=== PATIENT | male | born 1945 | race Caucasian/White ===

== ENCOUNTER 2019-02-17 09:31 | Day surgery (SDC) | payer MEDICARE ==
[~2019-02-17 09:31] MED LIST: ALPRAZolam 0.25 MG TAB PO PRN; ALPRAZolam 0.5 MG TAB PO PRN; ASPIRIN 325 MG TAB PO ONE; ATORVASTATIN 80 MG TAB PO ONE; NITROGLYCERIN SL TABS 0.4 MG TAB SUBLINGUAL PRN; SODIUM CHLORIDE 0.9% 1,000 ML in EMPTY BAG 1 BAG IV ONE
[2019-02-17] MEDS ORDERED: HEPARIN SODIUM 1,000 UN/ML (10ML VL) ONE (10:25)
[2019-02-17] MEDS ORDERED: VERAPAMIL 2.5 MG/ML 2 ML AMP ONE (10:25)
[2019-02-17] MEDS ORDERED: LIDOCAINE 1% INJ 10MG/ML (20 ML MDV) ONE (10:25)
[2019-02-17] MEDS ORDERED: MIDAZOLAM 2 MG/2 ML VIAL IVP ONE (10:39)
[2019-02-17] MEDS ORDERED: LIDOCAINE 1% INJ 10MG/ML (20 ML MDV) SQ ONE (10:42)
[2019-02-17] MEDS: VERAPAMIL SYRINGE (5 MG/10 ML) INTRAARTER ONE ×2 (10:45→11:46)
[2019-02-17] MEDS: HEPARIN SODIUM 1,000 UN/ML (10ML VL) IV ONE ×3 (10:46→11:21)
[2019-02-17] MEDS: NITROGLYCERIN 1000MCG/10ML SYRINGE INTRACORON ONE ×4 (11:08→11:41)
[2019-02-17] MEDS ORDERED: IOPAMIDOL-370 100ML BTL INJ ONE ×2 (11:25→11:49)
[2019-02-17] MEDS ORDERED: TICAGRELOR 90 MG TAB ONE (11:48)
[2019-02-17] MEDS ORDERED: TICAGRELOR 90 MG TAB PO ONE (11:49)
[2019-02-17] MEDS ORDERED: MAG HYDROX/AL HYDROX/SIMETH 30 ML CUP PO PRN (11:55)
[2019-02-17] MEDS ORDERED: ZOLPIDEM 5 MG TAB PO PRN (11:55)
[2019-02-17] MEDS ORDERED: NITROGLYCERIN SL TABS 0.4 MG TAB SUBLINGUAL PRN (11:55)
[2019-02-17] MEDS ORDERED: ATROPINE SULFATE 0.1 MG/ML 10ML SYRINGE IV PRN (11:55)
[2019-02-17] MEDS ORDERED: RX INFO: IV CONTRAST WAS GIVEN 1 EACH MISC MISCELLANE PRN (11:55)
[2019-02-17] MEDS ORDERED: PANTOPRAZOLE 40 MG TABLET PO PRN (11:59)
--- NOTE | 2019-02-17 13:02 | CC ---
CARDIAC CATHETERIZATION REPORT DATE OF SERVICE: 02/17/2019 PROCEDURE: 1. Left heart catheterization and coronary angiography. 2. Fractional flow reserve assessment of proximal LAD lesion. 3. PTCA and stenting of proximal LAD of an in-stent restenosis with a 3.25 caliber 15 mm long drug-eluting Xience stent. PERFORMED BY: Dr. Jalen Hager. Moderate conscious sedation time was 69 minutes. Patient was administered Versed. His oxygen saturation, hemodynamics and EKG were monitored closely. CLINICAL INFORMATION: Mr. 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 Last effort was in 2008 when I was unable to open up the totally occluded RCA and he already had infarct with inferobasal hypokinesia, but later the vessel recanalized and a cath in 2010 revealed a patent artery with stenosis. He also had a previous proximal LAD stenting in 2002 with a bare metal stent. Circumflex was never stented. Because of increasing symptoms of angina and abnormal stress test with a more prominent area of reversibility in the inferoapical wall more towards the apex, I recommended coronary angiography. After due discussion of risks, benefits, and options, patient was brought in for the procedure electively. PROCEDURE NOTE: Under local anesthesia and strict aseptic precautions, a 6-Persian introducer was placed in the right radial artery. Using a JL3.5 and JR4 catheters, I performed coronary angiography and the same right catheter was used to check LV pressures. LV gram was not performed. I noted that the patient had a moderate to significant lesion within the stented segment of proximal LAD. RCA remained recanalized vessel. I recommended an FFR of this vessel to be performed. Following the FFR, which was significant, I performed PCI of the proximal LAD with a drug-eluting stent of 3.25 caliber and 15 mm length. Patient tolerated procedure well. Eventually, the sheath was taken out and saturation of the fingers of the right hand was 98%. He was sent to the room in stable condition. CARDIAC CATHETERIZATION FINDINGS: The left ventricular end-diastolic pressure was 12 mmHg without any significant gradient across the aortic valve. CORONARY ANGIOGRAPHY FINDINGS: RIGHT CORONARY ARTERY: This is a recanalized vessel. Patient had a previous right coronary occlusion with ND. This vessel is patent, recanalized but the mid segment and proximal segment is heavily calcified. There appears to be a stenosis of 70% to 80% and flow is good DEMETRA-3 flow and this was similar to what was seen in 2011. LEFT MAIN CORONARY ARTERY: Short patent disease-free vessel that bifurcates into LAD and circumflex. LEFT ANTERIOR DESCENDING CORONARY ARTERY: Proximal LAD that was stented in the distal aspect of the septal branch has what appears to be a 60% to 70% narrowing seems significant in some views. Rest of the LAD is free of significant disease, gives off a diagonal branch. The origin of the diagonal branch also has some disease, but the flow is brisk. The entire LAD after diagonal branch is free of significant disease, runs all the way to the apex and curves over to supply the inferoapical portion of left ventricle. No other significant disease is noted. Proximal LAD within the stented segment has what seems to be a 60% to 70% restenotic lesion. LEFT POSTERIOR CIRCUMFLEX CORONARY ARTERY: Nondominant vessel of good caliber and good distribution gives off a single large obtuse marginal that runs laterally and other secondary branch superiorly and also AV groove branch. No significant disease is noted in the circumflex system. FINAL IMPRESSION: This patient has normal filling pressures. No gradient across aortic valve. Left end- diastolic pressure was about 12 mmHg. He has a right dominant system. Recanalized RCA with diffuse proximal disease of about 70% to 80% unchanged. New lesion in the proximal LAD about 60% to 70% is at moderate if not significant. Circumflex has no significant disease and nondominant. RECOMMENDATION: I recommended FFR and if significant proceeded to perform PCI of the proximal LAD within the restenotic segment. PCI PROCEDURE DETAILS: I used a JL3.5, six-Persian guide catheter and a Verrata wire. With this wire, I performed iFR. After zeroing and normalizing in the aorta, the wire was advanced and positioned in the mid to distal LAD. The iFR was 0.56. I then proceeded to perform PCI. Using the same wire, I pre-dilated the lesion with a 15 mm long 2.5 caliber NC Trek balloon with 12 atmospheres and then deployed the same 15 mm long 3.25 caliber Xience stent. The stent, distal aspect, was placed just before the diagonal branch. I evaluated the location very carefully in both IRANIAN and DUDLEY projections. Care was taken to make sure that the stent was appropriately positioned. Multiple views were obtained. The stent was deployed at about 13 atmospheres. Excellent angiographic result achieved. Patient had very minimal discomfort and also very subtle ST-segment changes. Distal to the stent was a diagonal branch and the flow was preserved in the diagonal branch. Previously, there was some narrowing in the diagonal that was unchanged. I then took the wire out, re-normalized it and again performed an iFR and this time, it was 1.00. Excellent angiographic result was achieved without complication. The patient received a total of 9000 units of heparin and his ACT was 291. The sheath was taken out and TR band applied as per protocol. The saturation of the fingers of the right hand of 98%. Results were discussed with the patient as well as his and he will be discharged tomorrow if he remains stable. MMODL / IJN: [id number] /
[2019-02-17] MEDS: SODIUM CHLORIDE 0.9% 1,000 ML IV SCH (13:07)
[2019-02-17 13:39] LABS: Glucose,Whole Blood 92 mg/dL (75-99)
[2019-02-17 14:22] VITALS: BMI 38.0
[2019-02-17 16:28] LABS: Glucose,Whole Blood 91 mg/dL (75-99)
[2019-02-17] MEDS ORDERED: ATORVASTATIN 80 MG TAB PO SCH (21:00)
[2019-02-17] MEDS ORDERED: MAGNESIUM OXIDE 400 MG TAB PO SCH (21:00)
[2019-02-17] MEDS: LISINOPRIL 10 MG TAB PO SCH (21:24)
--- NOTE | 2019-02-18 07:50 | DS ---
DISCHARGE SUMMARY DATE OF ADMISSION: 02/17/2019 DATE OF DISCHARGE: 02/18/2019 DIAGNOSIS: Unstable angina, previous history of myocardial infarction. PROCEDURES PERFORMED: Coronary angiography, fractional flow reserve assessment of LAD and PTCA and stenting of proximal LAD with drug-eluting stent within the previously placed stent from 2002. Mr. Salazar was brought in because of an abnormal stress test and symptoms of exertional shortness of breath and chest tightness. Coronary angiography from right radial approach revealed that his RCA was a recanalized vessel, unchanged from before with heavy calcification. Circumflex was free of significant disease. LAD was stented proximally in 2002 with a bare metal stent. This area had about a 60% to 70% narrowing. The severity was assessed physiologically by FFR measurement. The iFR was 0.56. The patient underwent stenting of this vessel with a 15 mm 3.25 caliber Xience stent. Excellent angiographic result was achieved. The iFR was back to 1.0. Postprocedure course was uneventful. This morning EKG is unremarkable. Blood pressure is 130/70, pulse rate is 64 per minute. No JVD or carotid bruit. S1-S2 heard normally. Lungs are clear. Abdomen and lower extremity exam unchanged. There is a short systolic murmur audible, unchanged from before. The patient's cardiac cath site in the right radial is clean and dry with a good pulse. His EKG is unremarkable. Laboratory data are still pending. The patient's labs will be reviewed. He is ambulating the hallways without symptoms. He will be discharged today. Discharge instructions regarding activity, diet and medications were given. Medications were given. He will be on aspirin, Brilinta, beta blockers and statins. I will see him in the office on the of this month. MMODL / IJN: [id number] /
[2019-02-18 07:54] LABS: Basophils % (A) 1 %; Eosinophils # (A) 0.2 k/uL (0-0.7); Eosinophils % (A) 3 %; HCT 40.7 % (39.0-53.0); HGB 13.7 gm/dL (13.0-17.5); Lymphocytes # (A) 1.7 k/uL (1.0-4.8); Lymphocytes % (A) 25 %; MCH 32.1 pg (25.0-35.0); MCHC 33.8 g/dL (31.0-37.0); Mean Platelet Volume 6.5; Monocytes # (A) 0.5 k/uL (0-1.0); Monocytes % (A) 8 %; Neutrophils % (A) 61 %; Platelet Count 193 k/uL (150-450); RBC 4.28 m/uL (4.30-5.90); RDW 13.1 % (11.5-15.5); WBC 6.6 k/uL (3.8-10.6)
[2019-02-18 08:05] LABS: African American GFR (CKD) >90 (>60 ml/min/1.73 sqM); Anion Gap 4 mmol/L; Blood Urea Nitrogen 14 mg/dL (9-20); Calcium 8.9 mg/dL (8.4-10.2); Carbon Dioxide 29 mmol/L (22-30); Chloride 105 mmol/L (98-107); Glucose 106 mg/dL (74-99); Potassium 4.1 mmol/L (3.5-5.1); Sodium 138 mmol/L (137-145)
[2019-02-18 08:07] VITALS: BP 142/84; PULSE 69; RESP 18; TEMP 97.4
[2019-02-18] MEDS: SODIUM CHLORIDE 0.9% 1,000 ML IV SCH (08:07)
[2019-02-18] MEDS: LISINOPRIL 10 MG TAB PO SCH (08:18)
[2019-02-18] MEDS ORDERED: ASPIRIN 81 MG PO SCH (09:00)
[2019-02-18] MEDS ORDERED: NON FORMULARY DRUG (Aspirin [Adult Low Dose Aspirin Ec] 81 MG) PO SCH (09:00)
[2019-02-18] MEDS ORDERED: MULTIVITAMINS, THERA 1 EACH TAB PO SCH (09:00)
[2019-02-18] MEDS ORDERED: METOPROLOL TARTRATE 25 MG TAB PO SCH (09:00)
[2019-02-18] MEDS ORDERED: TICAGRELOR 90 MG TAB PO SCH (09:00)
[2019-02-18] MEDS ORDERED: ISOSORBIDE MONONITRATE ER 30 MG TAB.ER.24H PO SCH (09:00)
== END 2019-02-18 10:40 | disposition home or self-care (01) ==
LOC: CATHCVL 09:31 → 3SCARD 11:46 → CATHCVL 02-18 10:40
PROVIDERS: ATTEND Internal Medicine Interventional Cardiology
DX: I25.110 Atherosclerotic heart disease of native coronary artery with unstable angina pectoris (principal); I25.84 Coronary atherosclerosis due to calcified coronary lesion; I10 Essential (primary) hypertension; Z72.0 Tobacco use; Z95.5 Presence of coronary angioplasty implant and graft; E78.5 Hyperlipidemia, unspecified; E78.00 Pure hypercholesterolemia, unspecified; I25.2 Old myocardial infarction; Z86.718 Personal history of other venous thrombosis and embolism; Z79.82 Long term (current) use of aspirin; Z79.899 Other long term (current) drug therapy
CPT/HCPCS: 93571; 93458; 85347; 80048; 85025; C9600; C1887; C1725; C1874; C1769; C1894; J2250; J2001; J1644; Q9967

== ENCOUNTER 2020-01-14 09:35 | Day surgery (SDC) | payer MEDICARE ==
[2020-01-08 13:37] VITALS: BMI 38.7
[~2020-01-14 09:35] MED LIST changes: -ASPIRIN 325 MG TAB PO ONE; +ASPIRIN 325 MG TAB PO STA; -ATORVASTATIN 80 MG TAB PO ONE; +ATORVASTATIN 80 MG TAB PO STA
[2020-01-14] MEDS ORDERED: ASPIRIN 81 MG ONE (09:52)
[2020-01-14] MEDS ORDERED: SODIUM CHLORIDE 0.9% 1,000 ML IV ONE (09:55)
[2020-01-14 10:08] VITALS: RESP 16; TEMP 97.6
[2020-01-14] MEDS ORDERED: LIDOCAINE 1% INJ 10MG/ML (20 ML MDV) ONE (10:37)
[2020-01-14] MEDS ORDERED: VERAPAMIL 2.5 MG/ML 2 ML AMP ONE (10:37)
[2020-01-14] MEDS ORDERED: HEPARIN SODIUM 1,000 UN/ML (10ML VL) ONE (10:37)
[2020-01-14] MEDS: MIDAZOLAM 2 MG/2 ML VIAL IVP ONE ×2 (11:11→11:15)
[2020-01-14] MEDS ORDERED: LIDOCAINE 1% INJ 10MG/ML (20 ML MDV) SQ ONE (11:16)
[2020-01-14] MEDS ORDERED: VERAPAMIL SYRINGE (5 MG/10 ML) INTRAARTER ONE (11:19)
[2020-01-14] MEDS ORDERED: HEPARIN SODIUM 1,000 UN/ML (10ML VL) IV ONE (11:23)
[2020-01-14] MEDS ORDERED: NITROGLYCERIN 1000MCG/10ML SYRINGE INTRACORON ONE (11:26)
[2020-01-14] MEDS ORDERED: IOPAMIDOL-370 100ML BTL INJ ONE (11:31)
[2020-01-14] MEDS ORDERED: SODIUM CHLORIDE 0.9% 1,000 ML IV SCH (12:00)
--- NOTE | 2020-01-14 12:19 | CC ---
CARDIAC CATHETERIZATION REPORT DATE OF SERVICE: 01/14/2020. PROCEDURE: Coronary angiography. PERFORMED BY: Dr. Jalen Hager. Moderate conscious sedation time was 15 minutes. Patient was administered Versed. Oxygenation and EKG were monitored closely. CLINICAL INFORMATION: Mr. Alo Salazar is a 74-year-old gentleman with a known history of multivessel PCI. He is known to have a previous inferior AR with a total occlusion of RCA recanalized vessel. The LAD. He had a previous stent in 2002. Because of significant abnormal stress test, I performed cardiac cath in February of 2019, which revealed a proximal LAD restenotic lesion and this was addressed with a new 3.25 caliber drug-eluting stent and IFR was negative after the procedure without evidence of ischemia after the procedure and was significantly abnormal before the procedure. Because of symptoms of angina, recurrent, I advised him to come in for a cardiac catheterization after due discussion regarding risks, benefits, and options. He does have a calcified RCA with 70% stenosis, but this was thought to be a recanalized vessel and area of ischemia was not significant on previous stress test. I thought the inferoapical ischemia was related to the distal LAD which was supplying the inferoapical territory. After due discussion regarding risks, benefits, and options, he was brought in for the procedure. PROCEDURE NOTE: Under local anesthesia and strict aseptic precautions, a 6-Kinyarwanda introducer was placed in the right radial artery. Using a JL3.5 and JR4 catheter, I performed selective coronary angiography in the say and following the procedure. The sheath was taken out and TR band applied as per protocol. Saturation the fingers of the right hand was 95%. The patient tolerated procedure well without complications. CORONARY ANGIOGRAPHY FINDINGS: RIGHT CORONARY ARTERY: this is a recanalized vessel. Proximally, there is some moderate calcification. Mid segment is also heavily calcified. There is eccentric 70% lesion with what seems to be a recanalized vessel type appearance, but there was a lot of calcification and there are at least 2 areas of 70% stenosis and tired vessel has a stenosis in the proximal 1/3. Caliber improves distally and bifurcates into PDA and PLV distally. Flow is sluggish in the distal branches. LEFT MAIN CORONARY ARTERY: Short patent free disease-free vessel that bifurcates into LAD and circumflex. LEFT ANTERIOR DESCENDING CORONARY ARTERY: This is a good caliber vessel. The proximal LAD that was stented is widely patent with very good flow. This was the in-stent restenosis. No appears to be widely patent with good flow. There is a diagonal branch that is somewhat jailed, but there is a DEMETRA-3 flow in that. There is a septal branch which is free of significant disease. Another 40% lesion beyond the stented segment and the vessel runs all the way to the apex supplying the inferoapical portion. The restenotic. The recently stented lesion in February of 2019 is now widely patent with remarkably good flow. Left posterior circumflex coronary artery nondominant vessel gives off a good-sized obtuse marginal 2 branches. The 2nd branch is larger than a groove branch. All of these have minor irregularities. No significant disease. Left ventriculogram was not performed. LV pressures were not checked. This patient has no evidence of restenosis at the site of previous stenting in the proximal LAD which was the restenotic lesion with a drug-eluting stent in February 2019. The RCA is a recanalized vessel with a mid lesion of about 70% in heavily calcified area. The findings are unchanged compared to the previous angiogram in 2010 as well. The circumflex is free of significant disease. LV pressures were not obtained. RECOMMENDATIONS: I am recommending medical therapy for now but given the patient's symptoms I will perform a repeat stress test to assess significance of the RCA lesion and if necessary, I will consider intervention of the RCA with orbital atherectomy as elective intervention down the road. For now we will proceed with medical therapy. LAD is widely patent. This was explained to the patient and and I will see him in the office in one week and plan for a stress test in the next few weeks. Discussed my thoughts in detail with the patient and . I expect he will be discharged later on today. MMODL / IJN: [id number] /
[2020-01-14 16:48] VITALS: BP 139/79; PULSE 50
== END 2020-01-14 17:37 | disposition home or self-care (01) ==
LOC: CATHCVL 09:35
PROVIDERS: ATTEND Internal Medicine Interventional Cardiology
DX: T82.855A Stenosis of coronary artery stent, initial encounter (principal); I25.10 Atherosclerotic heart disease of native coronary artery without angina pectoris; I25.2 Old myocardial infarction; I25.82 Chronic total occlusion of coronary artery; I10 Essential (primary) hypertension; E78.5 Hyperlipidemia, unspecified; E66.9 Obesity, unspecified; E78.00 Pure hypercholesterolemia, unspecified; G47.30 Sleep apnea, unspecified; Z79.82 Long term (current) use of aspirin; Z79.02 Long term (current) use of antithrombotics/antiplatelets; Z79.899 Other long term (current) drug therapy; Z68.38 Body mass index [BMI] 38.0-38.9, adult; Z95.5 Presence of coronary angioplasty implant and graft
CPT/HCPCS: 93454; C1769; C1894; J2250; J2001; J1644; Q9967

== ENCOUNTER → 2020-05-25 | Outpatient (CLI) | payer MEDICARE ==
[2020-05-25 10:39] LABS: HCT 45.7 % (39.0-53.0); HGB 14.8 gm/dL (13.0-17.5); MCHC 32.3 g/dL (31.0-37.0); MCV 96.2 fL (80.0-100.0); Mean Platelet Volume 8.1; Platelet Count 192 k/uL (150-450); RBC 4.76 m/uL (4.30-5.90); RDW 13.7 % (11.5-15.5); WBC 8.7 k/uL (3.8-10.6)
[2020-05-25 10:48] LABS: African American GFR (CKD) >90 (>60 ml/min/1.73 sqM); Anion Gap 5 mmol/L; Blood Urea Nitrogen 22 mg/dL (9-20); Carbon Dioxide 31 mmol/L (22-30); Chloride 105 mmol/L (98-107); Non-African American GFR(CKD) 81 (>60 ml/min/1.73 sqM); Potassium 5.2 mmol/L (3.5-5.1); Sodium 141 mmol/L (137-145)
== END | disposition home or self-care (01) ==
LOC: LABPAT 10:01
PROVIDERS: ATTEND Internal Medicine Interventional Cardiology
DX: Z01.818 Encounter for other preprocedural examination (principal); I25.118 Atherosclerotic heart disease of native coronary artery with other forms of angina pectoris
CPT/HCPCS: 36415; 80051; 82565; 84520; 85027

== ENCOUNTER 2020-06-01 06:32 | Day surgery (SDC) | payer MEDICARE ==
[2020-05-27 13:23] VITALS: BMI 36.7
[~2020-06-01 06:32] MED LIST changes: +HEPARIN SODIUM,PORCINE 10,000 UNIT in SODIUM CHLORIDE 0.9% 1,000 ML IRRIGATION PRN; +HEPARIN SODIUM,PORCINE 2,500 UNIT in SODIUM CHLORIDE 0.9% 250 ML IRRIGATION PRN
[2020-06-01] MEDS ORDERED: ASPIRIN 81 MG ONE (06:49)
[2020-06-01 06:55] VITALS: TEMP 97.2
[2020-06-01] MEDS ORDERED: LIDOCAINE 1% INJ 10MG/ML (20 ML MDV) ONE (07:15)
[2020-06-01] MEDS ORDERED: LIDOCAINE 1% INJ 10MG/ML (20 ML MDV) SQ ONE (08:01)
[2020-06-01] MEDS ORDERED: MIDAZOLAM 2 MG/2 ML VIAL IV ONE (08:03)
[2020-06-01] MEDS ORDERED: HEPARIN SODIUM 1,000 UN/ML (10ML VL) ONE (08:14)
[2020-06-01] MEDS ORDERED: CLOPIDOGREL 75 MG TAB ONE (08:41)
[2020-06-01] MEDS ORDERED: CLOPIDOGREL 75 MG TAB PO ONE (08:49)
[2020-06-01] MEDS ORDERED: IOPAMIDOL-370 100ML BTL INJ ONE ×2 (08:54→08:56)
[2020-06-01] MEDS ORDERED: NITROGLYCERIN 1000MCG/10ML SYRINGE INTRACORON ONE (08:57)
[2020-06-01] MEDS ORDERED: SODIUM CHLORIDE 0.9% 1,000 ML IV SCH (09:15)
[2020-06-01] MEDS ORDERED: amLODIPine 5 MG TAB ONE (10:35)
--- NOTE | 2020-06-01 10:51 | PTCA ---
PERCUTANEOUSTRANS CORORONARY ANGIOGRAPHY DATE OF SERVICE: 06/01/2020 PROCEDURE: 1. Coronary angiography of the left system to ensure patency of LAD that was stented in February 2019. 2. Orbital atherectomy with a CSI device of proximal and mid right coronary artery. 3. PTCA and stenting of proximal and mid RCA with 2 drug-eluting stents. PERFORMED BY: Dr. Jalen Hager. Moderate conscious sedation time was 71 minutes. Patient was administered Versed. Oxygen saturation, hemodynamics and EKG were monitored closely. CLINICAL INFORMATION: Mr. Alo Salazar is a 74-year-old gentleman with a history of prior inferior LA sometime in 2008 or so when he had RCA occlusion which was stented with a 2.75, 15 mm stent. However, he developed a total occlusion of this vessel which later on reopened. He then had LAD stenting performed by me in February 2019 with a good result. Because of recurrent angina, I performed a stress test which revealed inferior wall ischemia with an area of fixed defect as well. I advised a RCA PCI because this appeared to be a recanalized vessel but was heavily calcified before the stented segment in the midportion. He was advised a CSI atherectomy and stenting and brought in for the procedure electively after due discussion regarding risks, benefits, and options. The patient was already on aspirin and Plavix. PROCEDURE NOTE: Under local anesthesia and strict aseptic precautions, a 6-Bahraini introducer was placed in the right femoral artery and another 6-Bahraini introducer in the right femoral vein in case we needed a pacemaker. I used a standard left Anthony diagnostic catheter and performed selective coronary angiography of the left system and noted that the LAD was widely patent. I then turned my attention to the RCA intervention. Using an AL1 guide catheter of 6-Bahraini caliber, I cannulated the right coronary artery and a run-through wire along with a Teleport catheter, combination was used to cross the lesion, wire was kept distally. The wire was then taken out and through the same Teleport wire, an CSI atherectomy wire was advanced. I then performed orbital atherectomy with 3 passes of the proximal and mid RCA just before the stented segment. Then I used a 2.5 x 20 mm NC Trek balloon and postdilated this area throughout its length. I then deployed a 28 mm long 3.0 caliber Xience stent inside the previous stent and also proximal to it. Telescoping into this stent, I deployed another 15 mm long 3.0 caliber Xience stent all the way to the proximal RCA. The patient did not have EKG changes. He had mild chest discomfort. Excellent angiographic result was achieved. Then the entire length of the stented segment was post dilated with a 20 mm 3.5 NC Trek balloon at 12 atmospheres. Excellent angiographic result was achieved without complication. The sheath was taken out and Angio-Seal device used to secure hemostasis. Patient received intravenous heparin of nearly 9,500 units and his ACT was 250. Excellent angiographic result was achieved. He received additional 300 mg of Plavix orally. The patient was already on Plavix and aspirin. The patient therefore received intravenous heparin with ACT of 250 and also 300 mg of Plavix. He was sent to the room in a stable condition. Results were discussed with the patient as well as his . I expect he will be discharged at 5:30 p.m. today if he remains stable and I will see him in the office in 48 hours. MMODL / IJN: [id number] /
[2020-06-01 12:51] VITALS: BP 167/77; PULSE 73; RESP 18
== END 2020-06-01 17:27 | disposition home or self-care (01) ==
LOC: CATHCVL 06:32
PROVIDERS: ATTEND Internal Medicine Interventional Cardiology
DX: I25.10 Atherosclerotic heart disease of native coronary artery without angina pectoris (principal); I25.84 Coronary atherosclerosis due to calcified coronary lesion; E78.49 Other hyperlipidemia; Z95.5 Presence of coronary angioplasty implant and graft; I25.2 Old myocardial infarction; E66.9 Obesity, unspecified; Z68.37 Body mass index [BMI] 37.0-37.9, adult; G47.30 Sleep apnea, unspecified; E78.5 Hyperlipidemia, unspecified; Z86.718 Personal history of other venous thrombosis and embolism; E78.00 Pure hypercholesterolemia, unspecified; Z79.02 Long term (current) use of antithrombotics/antiplatelets; Z79.82 Long term (current) use of aspirin; Z79.899 Other long term (current) drug therapy
CPT/HCPCS: 93454; 85347; 84132; C9602; C1769 ×5; C1760; C1887; C1725 ×2; C1894; C1724; C1874; J2250; J2001; J1644; Q9967

== ENCOUNTER 2020-06-03 09:04 | Emergency (ER) | payer MEDICARE ==
[2020-06-03 09:16] VITALS: RESP 18; TEMP 98.5
[2020-06-03] MEDS ORDERED: SODIUM CHLORIDE 0.9% 1,000 ML IV STA (09:44)
[2020-06-03 09:53] VITALS: PULSE 58
[2020-06-03 10:06] LABS: Basophils # (A) 0.1 k/uL (0-0.2); Basophils % (A) 1 %; Eosinophils # (A) 0.1 k/uL (0-0.7); Eosinophils % (A) 1 %; HCT 42.8 % (39.0-53.0); HGB 14.5 gm/dL (13.0-17.5); Lymphocytes # (A) 1.2 k/uL (1.0-4.8); Lymphocytes % (A) 12 %; MCHC 33.9 g/dL (31.0-37.0); MCV 94.3 fL (80.0-100.0); Mean Platelet Volume 7.8; Monocytes # (A) 0.7 k/uL (0-1.0); Monocytes % (A) 7 %; Neutrophils # (A) 7.7 k/uL (1.3-7.7); Neutrophils % (A) 78 %; Platelet Count 159 k/uL (150-450); RBC 4.54 m/uL (4.30-5.90); RDW 13.1 % (11.5-15.5); WBC 9.8 k/uL (3.8-10.6)
[2020-06-03 10:11] LABS: Magnesium 2.1 mg/dL (1.6-2.3); Potassium 4.3 mmol/L (3.5-5.1)
--- NOTE | 2020-06-03 10:12 | XR ---
EXAMINATION TYPE: XR chest 1V portable DATE OF EXAM: 06/03/2020 COMPARISON: Chest x-ray February 21, 2009 HISTORY: Dizziness and weakness. TECHNIQUE: Single AP portable frontal upright view of the chest is obtained. FINDINGS: There is mild chronic parenchymal change greatest in the bases without suspicious new foc al air space opacity, pleural effusion, or pneumothorax seen. The cardiac silhouette size is upper l imits of normal. The osseous structures are intact. Overlying EKG leads are in current study. IMPRESSION: No acute process.
--- NOTE | 2020-06-03 10:16 | ED ---
General Adult HPI - General Chief complaint: Recheck/Abnormal Lab/Rx Stated complaint: hypoglycemia Time Seen by Provider: 06/03/20 09:17 Source: patient Mode of arrival: ambulatory Limitations: no limitations - History of Present Illness Initial comments: Dictation was produced using [employer] dictation software. please excuse any grammatical, word or spelling errors. This patient was cared for during a federal and state declared state of emergen cy secondary to Covid 19 Chief Complaint: 74-year-old male presents emergency department for episodes of cold sweats. History of Present Illness: Patient is 74-year-old male. He was sent here from his repair service dispatcher's office. 2 days ago patient had full coronary artery stents placed. Patient states that he's been doing fine until today. He was getting ready to follow-up with the repair service dispatcher when he had 2 episodes of breaking out in cold sweats. He didn't feel lightheaded however he was concerned. He told this repair service dispatcher about it and was redirected to the emergency department. I did receive some history from repair service dispatcher who reports that patient had sheeting place an arterial venous system. There is concern that perhaps patient had formed another blood clot which subsequently led to pulmonary embolus. Patient states that currently he feels fine he has no such symptoms at this time. States that he's been symptom free since being in the emergency department. The ROS documented in this emergency department record has been reviewed and confirmed by me. Those systems with pertinent positive or negative responses have been documented in the HPI. All other systems are other negative and/or noncontributory. PHYSICAL EXAM: General Impression: Alert and oriented x3, not in acute distress HEENT: Normocephalic atraumatic, extra-ocular movements intact, pupils equal and reactive to light bilaterally, mucous membranes moist. Cardiovascular: Heart regular rate and rhythm Chest: Able to complete full sentences, no retractions, no tachypnea Abdomen: abdomen soft, non-tender, non-distended, no organomegaly Musculoskeletal: Pulses present and equal in all extremities, no peripheral edema Motor: no focal deficits noted Neurological: CN II-XII grossly intact, no focal motor or sensory deficits noted Skin: Intact with no visualized rashes, groin site on the right groin is clean dry intact with minimal ecchymoses Psych: Normal affect and mood ED course: 74-year-old male presents with 2 episodes of breaking out in cold sweats today. Vital signs upon arrival are within acceptable limits. Laboratory evaluation obtained from mostly be unremarkable except for a d-dimer level I.12. CT angios ordered. CT angios unremarkable. Case is rediscussed with Dr. Hager who had no other concerns at the moment. Patient will be discharged. EKG interpretation: Ventricular rate 64, sinus rhythm, MD interval 184, QRS 90, QTC 429. There are multiple PVCs.. No MD prolongation, no QTC prolongation, no ST or T-wave changes noted. Overall, this EKG is unremarkable - Related Data Home Medications Medication Instructions Recorded Confirmed Enalapril Maleate [Vasotec] 5 mg PO HS 02/13/19 06/03/20 Loratadine-Pseudoeph 10-240 mg 1 tab PO DAILY PRN 02/13/19 06/03/20 [Claritin-D 24 Hour] Magnesium 200 mg PO HS 02/13/19 06/03/20 Multivitamins, Thera [Multivitamin 1 tab PO DAILY 02/13/19 06/03/20 (formulary)] Omeprazole [PriLOSEC] 40 mg PO DAILY PRN 02/13/19 05/27/20 Calcium +D 1 tab PO DAILY 01/08/20 06/03/20 Clopidogrel Bisulfate [Plavix] 75 mg PO DAILY 01/08/20 06/03/20 Furosemide [Lasix] 40 mg PO DAILY 01/08/20 06/03/20 Metoprolol Tartrate [Lopressor] 37.5 mg PO QAM 01/08/20 06/03/20 Previous Rx's Medication Instructions Recorded Aspirin 81 mg PO DAILY chew 02/17/19 Atorvastatin [Lipitor] 80 mg PO HS #0 02/17/19 Isosorbide Mononitrate [Isosorbide 30 mg PO DAILY #90 tab 02/17/19 Mononitrate ER] Nitroglycerin Sl Tabs [Nitrostat] 0.4 mg SUBLINGUAL Q5M PRN #25 tab 02/17/19 Allergies Allergy/AdvReac Type Severity Reaction Status Date / Time adhesive Allergy skin tears Verified 06/03/20 11:05 Review of Systems ROS Statement: Those systems with pertinent positive or pertinent negative responses have been documented in the HPI. ROS Other: All systems not noted in ROS Statement are negative. Past Medical History Past Medical History: Coronary Artery Disease (CAD), Cancer, Deep Vein Throm bosis (DVT), GERD/Reflux, Hyperlipidemia, Hypertension, Myocardial Infarction (VT), Osteoarthritis (OA), Prostate Disorder, Sleep Apnea/CPAP/BIPAP Additional Past Medical History / Comment(s): prostate cancer(tx with hormone injections), VT during heart catherization 2013, dvt after left shoulder surgery , "Chest pressure", no cpap used, hx bursitis, hypoglycemia, hx agent orange exposure in Last Myocardial Infarction Date:: 2008 History of Any Multi-Drug Resistant Organisms: None Reported Past Surgical History: Adenoidectomy, Appendectomy, Heart Catheterization, Heart Catheterization With Stent, Orthopedic Surgery, Tonsillectomy Additional Past Surgical History / Comment(s): sue shoulder surgery, 4-5 cardiac stents, hematoma removed from left knee Past Anesthesia/Blood Transfusion Reactions: No Reported Reaction Date of Last Stent Placement:: 2018 Past Psychological History: No Psychological Hx Reported Smoking Status: Former smoker Past Alcohol Use History: None Reported Past Drug Use History: None Reported - Past Family History Mother Family Medical History: Congestive Heart Failure (CHF), Coronary Artery Disease (CAD), Diabetes Mellitus Father Family Medical History: Cancer Additional Family Medical History / Comment(s): colon Brother(s) Family Medical History: Pulmonary Embolus General Exam Limitations: no limitations Course Vital Signs 06/03/20 06/03/20 09:12 09:51 Temperature 98.5 F Pulse Rate 61 58 L Respiratory 18 18 Rate Blood Pressure 96/62 109/67 O2 Sat by Pulse 98 97 Oximetry Medical Decision Making - Lab Data Result diagrams: 06/03/20 09:49 06/03/20 09:49 Lab Results 06/03/20 06/03/20 06/03/20 Range/Units 09:49 09:49 09:49 WBC 9.8 (3.8-10.6) k/uL RBC 4.54 (4.30-5.90) m/uL Hgb 14.5 (13.0-17.5) gm/dL Hct 42.8 (39.0-53.0) % MCV 94.3 (80.0-100.0) fL MCH 32.0 (25.0-35.0) pg MCHC 33.9 (31.0-37.0) g/dL RDW 13.1 (11.5-15.5) % Plt Count 159 (150-450) k/uL MPV 7.8 Neutrophils % 78 % Lymphocytes % 12 % Monocytes % 7 % Eosinophils % 1 % Basophils % 1 % Neutrophils # 7.7 (1.3-7.7) k/uL Lymphocytes # 1.2 (1.0-4.8) k/uL Monocytes # 0.7 (0-1.0) k/uL Eosinophils # 0.1 (0-0.7) k/uL Basophils # 0.1 (0-0.2) k/uL PT 11.1 (9.0-12.0) sec INR 1.1 (<1.2) APTT 22.0 (22.0-30.0) sec D-Dimer 1.12 H (<0.60) mg/L FEU Sodium 136 L (137-145) mmol/L Potassium 4.3 (3.5-5.1) mmol/L Chloride 98 (98-107) mmol/L Carbon Dioxide 29 (22-30) mmol/L Anion Gap 9 mmol/L BUN 21 H (9-20) mg/dL Creatinine 1.17 (0.66-1.25) mg/dL Est GFR (CKD-EPI)AfAm 71 (>60 ml/min/1.73 sqM) Est GFR (CKD-EPI)NonAf 61 (>60 ml/min/1.73 sqM) Glucose 167 H (74-99) mg/dL Calcium 9.0 (8.4-10.2) mg/dL Magnesium 2.1 (1.6-2.3) mg/dL CK-MB (CK-2) (0.0-2.4) ng/mL Troponin I (0.000-0.034) ng/mL 06/03/20 Range/Units 09:49 WBC (3.8-10.6) k/uL RBC (4.30-5.90) m/uL Hgb (13.0-17.5) gm/dL Hct (39.0-53.0) % MCV (80.0-100.0) fL MCH (25.0-35.0) pg MCHC (31.0-37.0) g/dL RDW (11.5-15.5) % Plt Count (150-450) k/uL MPV Neutrophils % % Lymphocytes % % Monocytes % % Eosinophils % % Basophils % % Neutrophils # (1.3-7.7) k/uL Lymphocytes # (1.0-4.8) k/uL Monocytes # (0-1.0) k/uL Eosinophils # (0-0.7) k/uL Basophils # (0-0.2) k/uL PT (9.0-12.0) sec INR (<1.2) APTT (22.0-30.0) sec D-Dimer (<0.60) mg/L FEU Sodium (137-145) mmol/L Potassium (3.5-5.1) mmol/L Chloride (98-107) mmol/L Carbon Dioxide (22-30) mmol/L Anion Gap mmol/L BUN (9-20) mg/dL Creatinine (0.66-1.25) mg/dL Est GFR (CKD-EPI)AfAm (>60 ml/min/1.73 sqM) Est GFR (CKD-EPI)NonAf (>60 ml/min/1.73 sqM) Glucose (74-99) mg/dL Calcium (8.4-10.2) mg/dL Magnesium (1.6-2.3) mg/dL CK-MB (CK-2) 0.5 (0.0-2.4) ng/mL Troponin I <0.012 (0.000-0.034) ng/mL Disposition Clinical Impression: Diaphoresis Disposition: HOME SELF-CARE Condition: Good Instructions (If sedation given, give patient instructions): Near Syncope (ED) Is patient prescribed a controlled substance at d/c from ED?: No Referrals: Mark James MD [Primary Care Provider] - 1-2 days Time of Disposition: 11:10
[2020-06-03 10:29] LABS: INR 1.1 (<1.2); Prothrombin Time 11.1 sec (9.0-12.0)
[2020-06-03 10:32] LABS: Creatine Kinase MB 0.5 ng/mL (0.0-2.4); Troponin I <0.012 ng/mL (0.000-0.034)
[2020-06-03 10:34] LABS: D-Dimer 1.12 mg/L FEU (<0.60)
--- NOTE | 2020-06-03 11:07 | CT ---
EXAMINATION TYPE: CT angio chest DATE OF EXAM: 06/03/2020 COMPARISON: None HISTORY: Elevated d-dimer. Cardiac stents placed [address] DLP: 549 mGycm CONTRAST: CT chest with contrast and 3D reconstruction with MIP imaging is performed with IV Contrast, patient injected with 100 mL of Isovue 370. Contrast-enhanced CT of the chest was performed through the course of the pulmonary arteries with fatou g and mediastinal window settings submitted. 3D reconstruction with MIP imaging was also performed. PULMONARY ARTERIES: The pulmonary arteries and their major tributaries are patent. I do not see brit dence for sizable filling defect to suggest pulmonary embolic process. LUNGS: The lungs are clear and free of infiltrate. No evidence for atelectasis. 4 mm nodular density right upper lobe. Follow-up is advised approximately 6 months. No pleural effusion. MEDIASTINUM: Thoracic aorta is of normal caliber,however, evaluation is limited given timing of the contrast bolus. If there is concern for thoracic aortic pathology consider HAMIDA. Correlate clinicall y . The heart is not enlarged. No evidence for mediastinal mass. No mediastinal lymph nodes greater than 1cm. HILAR STRUCTURES: No evidence for mass. No hilar lymph nodes greater than 1 cm. UPPER ABDOMEN: No significant abnormality is seen. IMPRESSION: 1. No evidence for Pulmonary embolism at this time. 2. Nonspecific Pulmonary nodule.
[2020-06-03 11:22] VITALS: BP 135/65
== END 2020-06-03 11:22 | disposition home or self-care (01) ==
LOC: EC 09:04
DX: R61 Generalized hyperhidrosis (principal); I25.10 Atherosclerotic heart disease of native coronary artery without angina pectoris; I10 Essential (primary) hypertension; E78.5 Hyperlipidemia, unspecified; I25.2 Old myocardial infarction; K21.9 Gastro-esophageal reflux disease without esophagitis; G47.30 Sleep apnea, unspecified; Z79.899 Other long term (current) drug therapy; Z79.02 Long term (current) use of antithrombotics/antiplatelets; Z91.048 Other nonmedicinal substance allergy status; Z87.891 Personal history of nicotine dependence; Z95.5 Presence of coronary angioplasty implant and graft; Z86.718 Personal history of other venous thrombosis and embolism; Z99.89 Dependence on other enabling machines and devices; Z85.46 Personal history of malignant neoplasm of prostate
CPT/HCPCS: 36415; 93005; 85379; 80048; 82553; 83735; 84484; 85025; 85610; 85730; 71045; 71275; 99284; 96360; Q9967; 99285

== ENCOUNTER 2021-07-31 11:38 | Observation (INO) | payer MEDICARE ==
[2021-07-31] MEDS ORDERED: ASPIRIN 81 MG PO STA (12:25)
[2021-07-31] MEDS ORDERED: SODIUM CHLORIDE 0.9% 500 ML 500 ML IV STA (12:25)
[2021-07-31] MEDS ORDERED: METOPROLOL TARTRATE 5 MG/5 ML VIAL IVP STA (12:29)
--- NOTE | 2021-07-31 12:51 | XR ---
EXAMINATION TYPE: XR chest 2V DATE OF EXAM: 07/31/2021 COMPARISON: Chest x-ray 06/03/2020 HISTORY: Dysrhythmia TECHNIQUE: Frontal and lateral views of the chest are obtained. FINDINGS: There is no focal air space opacity, pleural effusion, or pneumothorax seen. The cardiac silhouette size is within normal limits. There are overlying leads. Prominent lung volume may be ind icative of underlying COPD. The osseous structures are intact. IMPRESSION: No acute cardiopulmonary process.
--- NOTE | 2021-07-31 12:57 | XR ---
Right knee HISTORY: Status post right knee replacement, swelling 3 views the right knee There is soft tissue swelling. Small calcific densities are present along the region of the patellar tendon which are indeterminate, there are vascular calcifications posteriorly. Patient is status post right knee arthroplasty. There is anatomic alignment. No fracture or dislocation. IMPRESSION: Soft tissue swelling, correlate for cellulitis, infection
--- NOTE | 2021-07-31 13:07 | ED ---
General Adult HPI - General Chief complaint: Arrhythmia/Palpitations Stated complaint: AFib Time Seen by Provider: 07/31/21 12:12 Source: patient, RN notes reviewed, old records reviewed Mode of arrival: wheelchair Limitations: no limitations - History of Present Illness Initial comments: Patient is a 75-year-old male with past medical history remarkable for atrial fibrillation with RVR, recent right knee replacement, hypertension, NC with multiple stents who presents emergency Department complaining of heart palpitations and heart racing starting this morning. States he was on the toilet in the bathroom using the restroom when he felt lightheaded, and felt his heart rate increased. He does have a remote monitor which showed that it was in the 140s and 150s. The only symptom was some lightheadedness. Denied any chest pain, abdominal pain, nausea, vomiting. States he recently follow with his orthopedic surgeon yesterday who evaluated the right knee and revealed improved swelling. Evaluation was within normal limits. No concern for any acute process at that time. Patient otherwise has been stable. Had the sudden onset of symptoms earlier. His no other acute complaints at this time. Never had chest pain. No concern for clotting at this time. No fevers, chills, cough. No nausea, vomiting, diarrhea. No other acute complaints at this time. - Related Data Home Medications Medication Instructions Recorded Confirmed Enalapril Maleate [Vasotec] 5 mg PO HS 02/13/19 07/31/21 Multivitamins, Thera [Multivitamin 1 tab PO DAILY 02/13/19 07/31/21 (formulary)] Clopidogrel Bisulfate [Plavix] 75 mg PO DAILY 01/08/20 07/31/21 Furosemide [Lasix] 40 mg PO DAILY 01/08/20 07/31/21 Metoprolol Tartrate [Lopressor] 25 mg PO BID 01/08/20 07/31/21 Omeprazole Magnesium [PriLOSEC OTC] 40 mg PO DAILY PRN 06/03/20 07/31/21 Apixaban [Eliquis] 5 mg PO BID 06/20/21 07/31/21 Calcium Carbonate/Vitamin D3 1 tab PO DAILY 06/20/21 07/31/21 [Calcium 600 mg-D3 20 mcg (800 unit)] Loratadine 10 mg PO DAILY PRN 06/20/21 07/31/21 Magnesium Gluconate [Magonate] 500 mg PO DAILY 06/20/21 07/31/21 Atorvastatin [Lipitor] 80 mg PO HS 07/31/21 07/31/21 Previous Rx's Medication Instructions Recorded Nitroglycerin Sl Tabs [Nitrostat] 0.4 mg SUBLINGUAL Q5M PRN #25 tab 02/17/19 Allergies Allergy/AdvReac Type Severity Reaction Status Date / Time adhesive AdvReac skin tears Verified 07/31/21 14:08 - please use paper tape Review of Systems ROS Statement: Those systems with pertinent positive or pertinent negative responses have been documented in the HPI. Review of Systems: CONST: Denies fever EYES: Denies blurry vision ENT: Denies nasal congestion C/V: Denies Chest pain RESP: Denies shortness of breath GI: Denies abdominal pain : Denies dysuria SKIN: Denies rash. MSK: Denies joint pain. NEURO: Denies headache ROS Other: All systems not noted in ROS Statement are negative. Past Medical History Past Medical History: Atrial Fibrillation, Coronary Artery Disease (CAD), Cancer, Deep Vein Thrombosis (DVT), GERD/Reflux, Hyperlipidemia, Hypertension, Myocardial Infarction (NC), Osteoarthritis (OA), Prostate Disorder, Sleep Apnea/CPAP/BIPAP Additional Past Medical History / Comment(s): prostate cancer(tx with hormone injections), NC during heart catherization 2013, dvt after left shoulder surgery , "Chest pressure", no cpap used, hx bursitis, hypoglycemia, hx agent orange exposure in , [place] Last Myocardial Infarction Date:: 2008 History of Any Multi-Drug Resistant Organisms: None Reported Past Surgical History: Adenoidectomy, Appendectomy, Heart Catheterization, Heart Catheterization With Stent, Orthopedic Surgery, Tonsillectomy Additional Past Surgical History / Comment(s): sue shoulder surgery, 4-5 cardiac stents, hematoma removed from left knee, Past Anesthesia/Blood Transfusion Reactions: No Reported Reaction Date of Last Stent Placement:: 2018 Past Psychological History: No Psychological Hx Reported Smoking Status: Never smoker Past Alcohol Use History: Occasional Past Drug Use History: None Reported - Past Family History Mother Family Medical History: Congestive Heart Failure (CHF), Coronary Artery Disease (CAD), Diabetes Mellitus Father Family Medical History: Cancer Additional Family Medical History / Comment(s): colon Brother(s) Family Medical History: Pulmonary Embolus General Exam - General Exam Comments Initial Comments: General: Appears in no acute distress. HEAD: Normal with no signs of head trauma. EYES: PERRLA, EOMI, conjunctiva normal, no discharge. ENT: Hearing grossly intact, normal oropharynx. RESPIRATORY: Clear breath sounds bilaterally. No wheezes, rales, or rhonchi. C/V: Irregular rate and rhythm. S1 and S2 auscultated. Peripheral pulses 2+ and intact throughout. ABD: Abd is soft, nontender, nondistended EXT: Normal range of motion, no obvious deformity. Mildly edematous right knee which per family says orthopedic surgeon yesterday is significantly improved. No obvious pain. SKIN: Healing scar over the right knee. NEURO: Alert and oriented 4. No focal deficits. Limitations: no limitations Course Vital Signs 07/31/21 07/31/21 07/31/21 11:41 12:48 13:46 Temperature 96.9 F L Pulse Rate 62 123 H 99 Respiratory 18 18 18 Rate Blood Pressure 111/70 121/84 128/76 O2 Sat by Pulse 98 97 97 Oximetry Medical Decision Making - Medical Decision Making Based on the patient's presentation and physical exam, I'm concerned for possible atrial fibrillation with RVR. Screening EKG upon arrival did reveal this. Heart rate stated very from typically 120-160. He has been compliant with his anticoagulation as well as his home metoprolol. I did discuss with him I would like to obtain a cardiac workup as well as attempt to improve the patient's heart rate. There were in agreement this plan. He'll also take a dose of his home Industry for pain control. Patient will receive a 500 mL fluid bolus, we will obtain an x-ray of the right knee as well. CRP for potential joint infection will also be obtained. Patient will be given a dose of IV metoprolol as well as an extra oral dose of metoprolol this time. He was in agreement this plan. Chest x-ray revealed no acute cardio ponder process. Right knee x-ray revealed soft tissue swelling, which is likely secondary to his recent knee replacement. Overall the patient's knee exam is improved, and he just followed up with orthopedic surgery yesterday were not concerned for infection at that time. Laboratory studies were remarkable for lactic acid within normal limits. CRP is within normal limits at 1.0. Troponin is negative. BNP is borderline. Remainder of the labs are unremarkable. Following medication menstruation, vital signs remained stable. Heart rate did improve at this time, with the typically running between 90-110 bpm. He is resting comfortably and in no acute distress. I did discuss with the patient regarding his labs and imaging. I believe is safe for him to be at admitted to the hospital to observation with close monitoring by cardiology. He was in agreement this plan. I'm not concerned for a knee infection at this time following surgery, as he appears to have postsurgical changes and was cleared by his surgeon yesterday. He was in agreement with this plan. I did speak with Dr. Villa of cardiology who was in agreement with this plan. He will be consulted. I suspect with the admitting team Dr. Fowler he was in agreement this plan. Patient was therefore admitted to telemetry bed in stable condition. - Lab Data Result diagrams: 07/31/21 12:31 07/31/21 12:31 Lab Results 07/31/21 07/31/21 07/31/21 Range/Units 12:31 12:31 12:31 WBC 10.2 (3.8-10.6) k/uL RBC 4.17 L (4.30-5.90) m/uL Hgb 13.0 (13.0-17.5) gm/dL Hct 41.1 (39.0-53.0) % MCV 98.6 (80.0-100.0) fL MCH 31.2 (25.0-35.0) pg MCHC 31.7 (31.0-37.0) g/dL RDW 13.9 (11.5-15.5) % Plt Count 437 (150-450) k/uL MPV 7.4 Neutrophils % 78 % Lymphocytes % 13 % Monocytes % 6 % Eosinophils % 1 % Basophils % 0 % Neutrophils # 7.9 H (1.3-7.7) k/uL Lymphocytes # 1.3 (1.0-4.8) k/uL Monocytes # 0.6 (0-1.0) k/uL Eosinophils # 0.1 (0-0.7) k/uL Basophils # 0.0 (0-0.2) k/uL PT 11.5 (9.0-12.0) sec INR 1.1 (<1.2) APTT 24.6 (22.0-30.0) sec Sodium 134 L (137-145) mmol/L Potassium 4.8 (3.5-5.1) mmol/L Chloride 99 (98-107) mmol/L Carbon Dioxide 30 (22-30) mmol/L Anion Gap 5 mmol/L BUN 16 (9-20) mg/dL Creatinine 0.89 (0.66-1.25) mg/dL Est GFR (CKD-EPI)AfAm >90 (>60 ml/min/1.73 sqM) Est GFR (CKD-EPI)NonAf 85 (>60 ml/min/1.73 sqM) Glucose 107 H (74-99) mg/dL Plasma Lactic Acid Josafat (0.7-2.0) mmol/L Calcium 8.9 (8.4-10.2) mg/dL Magnesium 2.2 (1.6-2.3) mg/dL Total Bilirubin 0.7 (0.2-1.3) mg/dL AST 28 (17-59) U/L ALT 27 (4-49) U/L Alkaline Phosphatase 59 (38-126) U/L Troponin I (0.000-0.034) ng/mL C-Reactive Protein 1.0 H (<1.0) mg/dL NT-Pro-B Natriuret Pep pg/mL Total Protein 6.0 L (6.3-8.2) g/dL Albumin 3.3 L (3.5-5.0) g/dL 07/31/21 07/31/21 07/31/21 Range/Units 12:31 12:57 12:57 WBC (3.8-10.6) k/uL RBC (4.30-5.90) m/uL Hgb (13.0-17.5) gm/dL Hct (39.0-53.0) % MCV (80.0-100.0) fL MCH (25.0-35.0) pg MCHC (31.0-37.0) g/dL RDW (11.5-15.5) % Plt Count (150-450) k/uL MPV Neutrophils % % Lymphocytes % % Monocytes % % Eosinophils % % Basophils % % Neutrophils # (1.3-7.7) k/uL Lymphocytes # (1.0-4.8) k/uL Monocytes # (0-1.0) k/uL Eosinophils # (0-0.7) k/uL Basophils # (0-0.2) k/uL PT (9.0-12.0) sec INR (<1.2) APTT (22.0-30.0) sec Sodium (137-145) mmol/L Potassium (3.5-5.1) mmol/L Chloride (98-107) mmol/L Carbon Dioxide (22-30) mmol/L Anion Gap mmol/L BUN (9-20) mg/dL Creatinine (0.66-1.25) mg/dL Est GFR (CKD-EPI)AfAm (>60 ml/min/1.73 sqM) Est GFR (CKD-EPI)NonAf (>60 ml/min/1.73 sqM) Glucose (74-99) mg/dL Plasma Lactic Acid Josafat 1.8 (0.7-2.0) mmol/L Calcium (8.4-10.2) mg/dL Magnesium (1.6-2.3) mg/dL Total Bilirubin (0.2-1.3) mg/dL AST (17-59) U/L ALT (4-49) U/L Alkaline Phosphatase (38-126) U/L Troponin I <0.012 (0.000-0.034) ng/mL C-Reactive Protein (<1.0) mg/dL NT-Pro-B Natriuret Pep 941 pg/mL Total Protein (6.3-8.2) g/dL Albumin (3.5-5.0) g/dL - EKG Data -: EKG Interpreted by Me EKG Comments: 12-lead Electrocardiogram Interpretation Note EKG was reviewed and interpreted by myself. 12-lead ECG performed at 1153 is interpreted by me as revealing atrial fibrillation with RVR at a rate of 119 beats per minute. Left axis deviation. RI intervals unobtainable, QRS duration is 93 ms, QTc is 393 ms.. There were no ST or T wave abnormalities to suggest myocardial ischemia or injury. R wave progression across the precordium was satisfactory. By my interpretation this EKG is non-diagnostic for acute ischemia. Intermittent PVCs are present. Disposition Clinical Impression: Atrial fibrillation, Atrial fibrillation with RVR, Knee pain, Palpitations, Light headed Disposition: ADMITTED IP TO THIS HOSP Condition: Stable Referrals: Mark James MD [Primary Care Provider] - 1-2 days
[2021-07-31 13:14] LABS: Basophils % (A) 0 %; Eosinophils # (A) 0.1 k/uL (0-0.7); Eosinophils % (A) 1 %; HCT 41.1 % (39.0-53.0); Lymphocytes # (A) 1.3 k/uL (1.0-4.8); Lymphocytes % (A) 13 %; MCH 31.2 pg (25.0-35.0); MCHC 31.7 g/dL (31.0-37.0); MCV 98.6 fL (80.0-100.0); Mean Platelet Volume 7.4; Monocytes # (A) 0.6 k/uL (0-1.0); Monocytes % (A) 6 %; Neutrophils # (A) 7.9 k/uL (1.3-7.7); Neutrophils % (A) 78 %; Platelet Count 437 k/uL (150-450); RBC 4.17 m/uL (4.30-5.90); RDW 13.9 % (11.5-15.5); WBC 10.2 k/uL (3.8-10.6)
[2021-07-31] MEDS ORDERED: METOPROLOL TARTRATE 25 MG TAB PO STA (13:22)
[2021-07-31 13:33] LABS: INR 1.1 (<1.2); Partial Thromboplastin Time 24.6 sec (22.0-30.0); Prothrombin Time 11.5 sec (9.0-12.0)
[2021-07-31 13:45] LABS: ALT 27 U/L (4-49); AST 28 U/L (17-59); African American GFR (CKD) >90 (>60 ml/min/1.73 sqM); Albumin 3.3 g/dL (3.5-5.0); Alkaline Phosphatase 59 U/L (38-126); Anion Gap 5 mmol/L; Blood Urea Nitrogen 16 mg/dL (9-20); Calcium 8.9 mg/dL (8.4-10.2); Carbon Dioxide 30 mmol/L (22-30); Chloride 99 mmol/L (98-107); Glucose 107 mg/dL (74-99); Magnesium 2.2 mg/dL (1.6-2.3); Non-African American GFR(CKD) 85 (>60 ml/min/1.73 sqM); Potassium 4.8 mmol/L (3.5-5.1); Sodium 134 mmol/L (137-145); Total Bilirubin 0.7 mg/dL (0.2-1.3)
[2021-07-31] MEDS ORDERED: NALOXONE 0.4 MG/ML 1 ML VIAL IV PRN (14:45)
[2021-07-31] MEDS ORDERED: LORATADINE 10 MG TAB PO PRN (14:48)
[2021-07-31] MEDS ORDERED: PANTOPRAZOLE 40 MG TABLET PO PRN (14:48)
--- NOTE | 2021-07-31 18:24 | P.HPIM ---
History of Present Illness H&P Date: 07/31/21 HISTORY OF PRESENT ILLNESS 75-year-old male seen Dr. Hager cardiology [place] area and had known history of CAD post angioplasty and stent placement 6 last one was over 5 month ago. Patient just had right total knee arthroplasty in [facility] by Dr. banuelos on 07/18/2021 has done very well but was kept in the hospital overnight his pulse rate Running between 120-130 at the time the following day his symptom or better patient ended up going home did not require any further management. Apparently patient is on metoprolol tartrate 25 mg has been taking it twice a day along with Valente was in his pulse has been better up till now. Also patient is known to have obstructive sleep apnea he is supposed to be on CPAP but was not able to use it was at the [place] for testing previously and could not use the see Pap order mask at all. Patient presented to the emergency department at [facility] today complaining of very rapid pulse with A. fib with RVR with presyncope like symptom along with severe excessive sweating tiredness fatigue with no chest pain with mild shortness of breath. Was seen and evaluated found to have pulse rate running around 160 beats per minutes after starting him on Cardizem drip his pulse rate came down ended up going off Cardizem drip. Patient is still on anticoagulation with Eliquis 5 mg twice a day. Otherwise testing including CBC and CMP BNP did not show any major abnormality. Thyroid testing were not done at this point. Patient will be kept in the hospital seen cardiology control his pulse titrate his medication try to keep his pulse in the 60s or 70s only. REVIEW OF SYSTEMS Constitutional: No fever, no chills, no night sweats. No weight change. No weakness, fatigue or lethargy. No daytime sleepiness. EENT: No headache. No blurred vision or double vision, no loss of vision. No loss of Hearing, no ringing in the ears, no dizziness. No nasal drainage or congestion. No epistaxis. No sore throat. Lungs: Mild shortness of breath, no cough, no sputum production. No wheezing. Cardiovascular: No chest pain, no lower extremity edema. Positive palpitation with A. fib with RVR with mild orthopnea and PND. Abdominal: No abdominal pain. No nausea, vomiting. No diarrhea. No constipation. No bloody or tarry stools.. No loss of appetite. Genitourinary: No dysuria, increased frequency, urgency. No urinary retention. Musculoskeletal: No myalgias. No muscle weakness, no gait dysfunction, no frequent falls. No back pain. No neck pain. Slight discomfort in the right kn ee with slight swelling and redness with no calcified tenderness incision on the knee looks fine with no sign of infection. Integumentary: No wounds, no lesions. No rash or pruritus. No unusual brui sing. No change in hair or nails. Neurologic: No aphasia. No facial droop. No change in mentation. No head injury. No headache. No paralysis. No paresthesia. Psychiatric: No depression. No anxiety. No mood swings. Endocrine: No abnormal blood sugars. No weight change. No excessive sweating or thirst. No cold intolerance. SOCIAL HISTORY He quit smoking in the 1970s smoke for about 10 years only, patient is retired live at home with his he has obstructive sleep apnea and does not use CPAP he drinks 1-2 social drink a week never been an alcoholic. FAMILY HISTORY Patient had 2 children one of them has obstructive sleep apnea, had 4 siblings one of them from motor vehicle accident has brother who get hit bad with COVID-19 this last year but he did well. His father age 67 from colon cancer, mother age 66 from CAD and CHF. PHYSICAL EXAMINATION Gen: This is a morbidly obese laying in bed does not look in any respiratory distress. HEENT: Head is atraumatic, normocephalic. Pupils equal, round. Sclerae is anicteric. NECK: Supple. No JVD. No lymphadenopathy. No thyromegaly. LUNGS: Clear to auscultation. No wheezes or rhonchi. No intercostal retractions. HEART: Irregular rate and rhythm, S1, S2, no S3 or JVD. ABDOMEN: Soft. Bowel sounds are present. No masses. No tenderness. EXTREMITIES: The right knee incision looks fine slight redness and induration with no sign of infection no cough tenderness has more swelling in the right leg than the left side. NEUROLOGICAL: Patient is awake, alert and oriented x3. Cranial nerves 2 through 12 are grossly intact. ASSESSMENT AND PLAN 1. A. fib with RVR: Patient was started on Cardizem drip his pulse is still down he is back on metoprolol tartrate 25 g twice a day which should be up to probably 3 times a day at this point cardiology be seen patient CK with troponin 3 will be done and awaiting for cardiology for further recommendation and management. I had long discussion with the patient and his and explained to him the correlation between sleep apnea and A. fib without having to control the sleep apnea his A. fib is not getting the be well controlled regardless have any medication we had. We will need further sleep study and management if he has to go back to see a sleep specialist for better management of CPAP or devices are mask to use it might help to control his A. fib much better otherwise management for now is to titrate his beta raffaele and keep him on anticoagulation. 2 advanced CAD: With multiple coronary artery blockage require many angioplasty and stent placement last one was few month ago by Dr. Hager patient has done very well still on secondary prevention with antiplatelet agent along with beta raffaele DOMINGO inhibitor and statin. 3 obstructive sleep apnea: Patient could not use his CPAP has not use it apparently last few years, referral to sleep center for better device or mass could be a good idea. 4 recent history of right total knee arthroplasty: The patient is recovering nicely with no major complication, pain is under control his mobility still limited at this point. 5 hypertension: Has been doing well on lisinopril and metoprolol. 6 hyperlipidemia: Remain on atorvastatin 80 mg a day. 7 severe GERD still on pantoprazole 40 mg daily. 8 chronic edema: Most likely chronic diastolic congestive heart failure, patient remain on lisinopril furosemide and metoprolol. 9 GI prophylaxis: Continue proton pump inhibitor. 10 DVT prophylaxis: Continue anticoagulation with liquids 5 mg twice a day. Ex CODE STATUS: Full code. Patient will be admitted to the hospital for a minimum of 1 night stay. Past Medical History Past Medical History: Atrial Fibrillation, Coronary Artery Disease (CAD), Cancer, Deep Vein Thrombosis (DVT), Eye Disorder, GERD/Reflux, Hyperlipidemia, Hypertension, Myocardial Infarction ([place]), Osteoarthritis (OA), Pneumonia, Prostate Disorder, Sleep Apnea/CPAP/BIPAP Additional Past Medical History / Comment(s): Prostate cancer treated with hormone injections/radiation, DVT R leg following shoulder surgery, lower extremity edema, past told he had a murmur, bursitis bilateral shoulders, SISSY/does not tolerate device, hypoglycemia, bilateral cataracts Last Myocardial Infarction Date:: 2008 History of Any Multi-Drug Resistant Organisms: None Reported Past Surgical History: Adenoidectomy, Appendectomy, Heart Catheterization, Heart Catheterization With Stent, Joint Replacement, Orthopedic Surgery, Prostate Surgery, Tonsillectomy Additional Past Surgical History / Comment(s): Recent total R knee arthroplasty, bilateral shoulder surgeries, prostate biopsy, colonoscopy. Past Anesthesia/Blood Transfusion Reactions: No Reported Reaction Date of Last Stent Placement:: 2020 Smoking Status: Former smoker - Past Family History Mother Family Medical History: Congestive Heart Failure (CHF), Coronary Artery Disease (CAD), Diabetes Mellitus Father Family Medical History: Cancer Additional Family Medical History / Comment(s): colon Brother(s) Family Medical History: Pulmonary Embolus Medications and Allergies Home Medications Medication Instructions Recorded Confirmed Type Enalapril Maleate [Vasotec] 5 mg PO HS 02/13/19 07/31/21 History Multivitamins, Thera [Multivitamin 1 tab PO DAILY 02/13/19 07/31/21 History (formulary)] Nitroglycerin Sl Tabs [Nitrostat] 0.4 mg SUBLINGUAL Q5M PRN #25 tab 02/17/19 07/31/21 Rx Clopidogrel Bisulfate [Plavix] 75 mg PO DAILY 01/08/20 07/31/21 History Furosemide [Lasix] 40 mg PO DAILY 01/08/20 07/31/21 History Metoprolol Tartrate [Lopressor] 25 mg PO BID 01/08/20 07/31/21 History Omeprazole Magnesium [PriLOSEC OTC] 40 mg PO DAILY PRN 06/03/20 07/31/21 History Apixaban [Eliquis] 5 mg PO BID 06/20/21 07/31/21 History Calcium Carbonate/Vitamin D3 1 tab PO DAILY 06/20/21 07/31/21 History [Calcium 600 mg-D3 20 mcg (800 unit)] Loratadine 10 mg PO DAILY PRN 06/20/21 07/31/21 History Magnesium Gluconate [Magonate] 500 mg PO DAILY 06/20/21 07/31/21 History Atorvastatin [Lipitor] 80 mg PO HS 07/31/21 07/31/21 History Allergies Allergy/AdvReac Type Severity Reaction Status Date / Time adhesive AdvReac skin tears Verified 07/31/21 14:08 - please use paper tape Physical Exam Vitals: Vital Signs Temp Pulse Resp BP Pulse Ox 07/31/21 15:24 93 16 129/69 98 07/31/21 13:46 99 18 128/76 97 07/31/21 12:48 123 H 18 121/84 97 07/31/21 11:41 96.9 F L 62 18 111/70 98 Intake and Output 07/31/21 07/31/21 07/31/21 06:59 14:59 22:59 Other: Weight 118.388 kg 118.388 kg Results CBC & Chem 7: 07/31/21 12:31 07/31/21 12:31 Labs: Abnormal Lab Results - Last 24 Hours (Table) 07/31/21 07/31/21 Range/Units 12:31 12:31 RBC 4.17 L (4.30-5.90) m/uL Neutrophils # 7.9 H (1.3-7.7) k/uL Sodium 134 L (137-145) mmol/L Glucose 107 H (74-99) mg/dL C-Reactive Protein 1.0 H (<1.0) mg/dL Total Protein 6.0 L (6.3-8.2) g/dL Albumin 3.3 L (3.5-5.0) g/dL Thrombosis Risk Factor Assmnt - Choose All That Apply Any of the Below Risk Factors Present?: Yes Each Factor Represents 1 point: History of prior major surgery (<1month), Obesity (BMI >25) Other Risk Factors: Yes Each Risk Factor Represents 2 Points: Age 61-74 years, Malignancy Other congenital or acquired thrombophilia - If yes, enter type in comment: No Thrombosis Risk Factor Assessment Total Risk Factor Score: 6 Thrombosis Risk Factor Assessment Level: High Risk
[2021-07-31] MEDS: lisinopriL 10 MG TAB PO SCH (20:43)
[2021-07-31] MEDS: APIXABAN 5 MG TAB PO SCH (20:44)
[2021-07-31] MEDS: ATORVASTATIN 80 MG TAB PO SCH (20:44)
[2021-07-31] MEDS: METOPROLOL TARTRATE 25 MG TAB PO SCH (20:44)
[2021-07-31] MEDS: HYDROcodone/APAP 5-325MG 1 EACH TAB PO PRN (20:52)
[2021-07-31 22:03] LABS: Appearance,Urine Clear (Clear); Bilirubin,Urine Negative (Negative); Blood,Urine Negative (Negative); Color,Urine Yellow; Glucose,Urine (UA) Negative (Negative); Ketones,Urine Negative (Negative); Leukocyte Esterase,Urine Negative (Negative); Nitrite,Urine Negative (Negative); PH, Urine 5.5 (5.0-8.0); Protein,Urine Negative (Negative); Specific Gravity,Urine 1.012 (1.001-1.035); Urobilinogen,Urine <2.0 mg/dL (<2.0)
[2021-08-01] MEDS: HYDROcodone/APAP 5-325MG 1 EACH TAB PO PRN ×2 (07:03→18:57)
[2021-08-01 07:54] VITALS: RESP 16
[2021-08-01] MEDS: APIXABAN 5 MG TAB PO SCH ×2 (09:39→21:26)
[2021-08-01] MEDS: FUROSEMIDE 40 MG TAB PO SCH (09:39)
[2021-08-01] MEDS: CLOPIDOGREL 75 MG TAB PO SCH (09:39)
[2021-08-01] MEDS: METOPROLOL TARTRATE 25 MG TAB PO SCH ×2 (09:40→21:27)
--- NOTE | 2021-08-01 10:09 | P.CRDCN ---
History of Present Illness History of present illness: This is a pleasant 75-year-old male with a past medical history of coronary artery disease status post multi-vessel stenting (PCI of LAD and mid RCA in 2002, PCI distal RCA in 2008, PCI to the LAD in 2018, and PCI of the mid RCA in 05/2020), dyslipidemia, former nicotine dependence, hypertension, sleep apnea persistent atrial fibrillation on Eliquis, prostate cancer, Recent right total knee arthroplasty in [facility] on 07/18/2021. He follows in the office with Dr. Hager. We have been asked to see in consultation for atrial fibrillation with rapid response. Patient presents to the hospital with complaints of palpitations and elevated heart rate. He also had symptoms of fatigue, tiredness and lightheadedness. He denies any chest pain or shortness of breath. He has been taking his medications at home including beta raffaele and Eliquis for 2 weeks. He endorses miscommunication with his medications for his right knee surgery and only was taking his beta raffaele and eliquis. He states his symptoms have improved. On admission, he was in atrial fibrillation with HR 120s. Overnight HR has improved in the 90s. DIAGNOSTICS EKG reveals atrial fibrillation with rapid ventricular response, heart rate 119, PVCs Telemetry tracings indicate atrial fibrillation with heart rates in the 90s1:30 Chest xray no acute cardiopulmonary process Most recent Lexiscan stress test was negative for inducible ischemia on 03/2021 Most recent echocardiogram 11/2019 revealed an EF of 55%, mild concentric LVH, mild mitral regurgitation, mild to moderate tricuspid regurgitation Most recent cardiac catheterization 05/2020 revealed previously stented LAD was widely patent, Dr. Hager performed orbital arthrectomy and stenting of the mid RCA with 2 TYRONE Laboratory reviewed, sodium 134, potassium 4.8, BUN 16, serum creatinine 0.8, magnesium 2.2, troponin negative, proBNP 941, TSH within normal limits, UA negative Current home medications include atorvastatin 80 mg daily, Eliquis 5 mg twice a day, Lasix 40 mg daily, enalapril 5 mg nightly, Plavix 75 mg daily, multivitamin, metoprolol tartrate 25 mg twice a day REVIEW OF SYSTEMS At the time of my exam: CONSTITUTIONAL: Denies fever or chills. CARDIOVASCULAR: Denies chest pain, shortness of breath, orthopnea, PND or palpitations. RESPIRATORY: Denies cough. GASTROINTESTINAL: Denies abdominal pain, diarrhea, constipation, nausea or vomiting. MUSCULOSKELETAL: Denies myalgias. NEUROLOGIC: Denies numbness, tingling, headacbe or weakness. ENDOCRINE: Denies fatigue, weight change, polydipsia or polyurina. GENITOURINARY: Denies burning, hematuria or urgency with micturation. HEMATOLOGIC: Denies history of anemia or bleeding. PHYSICAL EXAMINATION Blood pressure 138/88, heart rate 99, afebrile, oxygen saturations 95% on room air CONSTITUTIONAL: No apparent distress. HEENT: Head is normocephalic. Pupils are equal, round. Sclerae anicteric. Mucous membranes of the mouth are moist. No JVD. No carotid bruit. CHEST EXAMINATION: Lungs are clear to auscultation. No chest wall tenderness is noted on palpation or with deep breathing. HEART EXAMINATION: Irregular rate and rhythm. S1, S2 heard. No murmurs, gallops or rub. ABDOMEN: Soft, nontender. Positive bowel sounds. EXTREMITIES: 2+ peripheral pulses, no lower extremity edema and no calf tenderness. NEUROLOGIC EXAMINATION: Patient is awake, alert and oriented x3. ASSESSMENT Persistent Atrial fibrillation with RVR, symptomatic, on Eliquis Coronary artery disease status post multi-vessel stenting (PCI of LAD and mid RCA in 2002, PCI distal RCA in 2008, PCI to the LAD in 2018, and PCI of the mid RCA in 05/2020) Dyslipidemia Former nicotine dependence History of hypertension Obstructive sleep apnea History of prostate cancer Recent right total knee arthroplasty in [facility] on 07/18/2021 PLAN -Recommend HAMIDA Cardioversion, patient is agreeable -Keep patient NPO except medications -I have discussed the risks, benefits and alternative therapies for the above- mentioned procedure and for both sedation/analgesia, as they pertain to this patient. The patient has indicated understanding and acceptance of the risks and procedures discussed. Questions have been answered appropriately and he is agreeable to move forward with the above-stated procedure. Plan for HAMIDA Cardioversion with Dr. Conner today. -Further recommendations based on clinical course Nurse practitioner note has been reviewed by physician. Signing provider agrees with the documented findings, assessment, and plan of care. Past Medical History Past Medical History: Atrial Fibrillation, Coronary Artery Disease (CAD), Cancer, Deep Vein Thrombosis (DVT), Eye Disorder, GERD/Reflux, Hyperlipidemia, Hypertension, Myocardial Infarction ([place]), Osteoarthritis (OA), Pneumonia, Prostate Disorder, Sleep Apnea/CPAP/BIPAP Additional Past Medical History / Comment(s): Prostate cancer treated with hormone injections/radiation, DVT R leg following shoulder surgery, lower extremity edema, past told he had a murmur, bursitis bilateral shoulders, SISSY/does not tolerate device, hypoglycemia, bilateral cataracts Last Myocardial Infarction Date:: 2008 History of Any Multi-Drug Resistant Organisms: None Reported Past Surgical History: Adenoidectomy, Appendectomy, Heart Catheterization, Heart Catheterization With Stent, Joint Replacement, Orthopedic Surgery, Prostate Surgery, Tonsillectomy Additional Past Surgical History / Comment(s): Recent total R knee arthroplasty, bilateral shoulder surgeries, prostate biopsy, colonoscopy. Past Anesthesia/Blood Transfusion Reactions: No Reported Reaction Date of Last Stent Placement:: 2020 Smoking Status: Former smoker - Past Family History Mother Family Medical History: Congestive Heart Failure (CHF), Coronary Artery Disease (CAD), Diabetes Mellitus Father Family Medical History: Cancer Additional Family Medical History / Comment(s): colon Brother(s) Family Medical History: Pulmonary Embolus Medications and Allergies Home Medications Medication Instructions Recorded Confirmed Type Enalapril Maleate [Vasotec] 5 mg PO HS 02/13/19 07/31/21 History Multivitamins, Thera [Multivitamin 1 tab PO DAILY 02/13/19 07/31/21 History (formulary)] Nitroglycerin Sl Tabs [Nitrostat] 0.4 mg SUBLINGUAL Q5M PRN #25 tab 02/17/19 07/31/21 Rx Clopidogrel Bisulfate [Plavix] 75 mg PO DAILY 01/08/20 07/31/21 History Furosemide [Lasix] 40 mg PO DAILY 01/08/20 07/31/21 History Metoprolol Tartrate [Lopressor] 25 mg PO BID 01/08/20 07/31/21 History Omeprazole Magnesium [PriLOSEC OTC] 40 mg PO DAILY PRN 06/03/20 07/31/21 History Apixaban [Eliquis] 5 mg PO BID 06/20/21 07/31/21 History Calcium Carbonate/Vitamin D3 1 tab PO DAILY 06/20/21 07/31/21 History [Calcium 600 mg-D3 20 mcg (800 unit)] Loratadine 10 mg PO DAILY PRN 06/20/21 07/31/21 History Magnesium Gluconate [Magonate] 500 mg PO DAILY 06/20/21 07/31/21 History Atorvastatin [Lipitor] 80 mg PO HS 07/31/21 07/31/21 History Allergies Allergy/AdvReac Type Severity Reaction Status Date / Time adhesive AdvReac skin tears Verified 07/31/21 14:08 - please use paper tape Physical Exam Vitals: Vital Signs Temp Pulse Pulse Resp BP BP Pulse Ox 08/01/21 07:00 97.7 F 58 L 16 138/88 95 08/01/21 00:58 97.8 F 99 14 108/73 98 07/31/21 20:00 98.4 F 18 144/80 97 07/31/21 15:24 93 16 129/69 98 07/31/21 13:46 99 18 128/76 97 07/31/21 12:48 123 H 18 121/84 97 07/31/21 11:41 96.9 F L 62 18 111/70 98 Intake and Output 07/31/21 08/01/21 08/01/21 22:59 06:59 14:59 Output Total 300 Balance -300 Output: Urine 300 Other: # Voids 2 Weight 118.388 kg Results 07/31/21 12:31 07/31/21 12:31 Cardiac Enzymes 07/31/21 07/31/21 Range/Units 12:31 12:31 AST 28 (17-59) U/L Troponin I <0.012 (0.000-0.034) ng/mL Coagulation 07/31/21 Range/Units 12:31 PT 11.5 (9.0-12.0) sec APTT 24.6 (22.0-30.0) sec CBC 07/31/21 Range/Units 12:31 WBC 10.2 (3.8-10.6) k/uL RBC 4.17 L (4.30-5.90) m/uL Hgb 13.0 (13.0-17.5) gm/dL Hct 41.1 (39.0-53.0) % Plt Count 437 (150-450) k/uL Comprehensive Metabolic Panel 07/31/21 Range/Units 12:31 Sodium 134 L (137-145) mmol/L Potassium 4.8 (3.5-5.1) mmol/L Chloride 99 (98-107) mmol/L Carbon Dioxide 30 (22-30) mmol/L BUN 16 (9-20) mg/dL Creatinine 0.89 (0.66-1.25) mg/dL Glucose 107 H (74-99) mg/dL Calcium 8.9 (8.4-10.2) mg/dL AST 28 (17-59) U/L ALT 27 (4-49) U/L Alkaline Phosphatase 59 (38-126) U/L Total Protein 6.0 L (6.3-8.2) g/dL Albumin 3.3 L (3.5-5.0) g/dL Current Medications Generic Name Dose Route Start Last Admin Trade Name Freq PRN Reason Stop Dose Admin Hydrocodone Bitart/Acetaminophen 1 each 07/31/21 14:54 08/01/21 07:03 Hydrocodone/Apap 5-325mg 1 Each Tab PO 0.5 each Q6HR PRN Administration Pain Apixaban 5 mg 07/31/21 21:00 07/31/21 20:44 Apixaban 5 Mg Tab PO 5 mg BID JORGE A Administration Protocol Atorvastatin Calcium 80 mg 07/31/21 21:00 07/31/21 20:44 Atorvastatin 80 Mg Tab PO 80 mg HS JORGE A Administration Clopidogrel Bisulfate 75 mg 08/01/21 09:00 Clopidogrel 75 Mg Tab PO DAILY JORGE A Furosemide 40 mg 08/01/21 09:00 Furosemide 40 Mg Tab PO DAILY JORGE A Lisinopril 10 mg 07/31/21 21:00 07/31/21 20:43 Lisinopril 10 Mg Tab PO 10 mg HS JORGE A Administration Loratadine 10 mg 07/31/21 14:48 Loratadine 10 Mg Tab PO DAILY PRN Allergy Symptoms Metoprolol Tartrate 25 mg 07/31/21 21:00 07/31/21 20:44 Metoprolol Tartrate 25 Mg Tab PO 25 mg BID JORGE A Administration Naloxone HCl 0.2 mg 07/31/21 14:45 Naloxone 0.4 Mg/Ml 1 Ml Vial IV Q2M PRN Opioid Reversal Pantoprazole Sodium 40 mg 07/31/21 14:48 Pantoprazole 40 Mg Tablet PO [id number] PRN GERD Intake and Output 07/31/21 08/01/21 08/01/21 22:59 06:59 14:59 Output Total 300 Balance -300 Output: Urine 300 Other: # Voids 2 Weight 118.388 kg 07/31/21 12:31 07/31/21 12:31
[2021-08-01] MEDS ORDERED: LIDOCAINE 1% INJ 10MG/ML (20 ML MDV) ONE (12:29)
[2021-08-01] MEDS ORDERED: PROPOFOL 10 MG/ML 20 ML VIAL IV ONE (12:29)
[2021-08-01] MEDS ORDERED: SODIUM CHLORIDE 0.9% 1,000 ML IV ONE ×2 (12:34)
[2021-08-01] MEDS ORDERED: BENZOCAINE SPRAY 1 CAN MUCOUS MEM ONE (12:47)
--- NOTE | 2021-08-01 12:57 | P.PCN ---
Date of Procedure: 08/01/21 Operative Findings: TRANSESOPHAGEAL ECHOCARDIOGRAM CONTRACTS ANALYST: DELFIN VASQUEZ MD, RPVI INDICATION: This is a 75-year-old gentleman was admitted to the hospital with symptomatic atrial fibrillation. The decision was made toward cardioversion. The HAMIDA is to rule out any intracardiac thrombus SEDATION: Conscious sedation COMPLICATION: None LEVEL OF SEDATION The procedure was performed using propofol with RATING SPECIALIST in the recovery area PROCEDURE DESCRIPTION: After obtaining an informed consent, the patient was brought to the recovery room Pulse oximetry and heart monitors were attached to the patient. The patient throat was sprayed using lidocaine. The patient was turned into left lateral position. After that a bite guard was placed. After an appropriate sedation was initiated, the transesophageal echocardiogram was advanced through a bite guard into the mid esophagus. A 2-D echocardiogram images, color Doppler images, continuous wave images, pulse-wave images, of various cardiac structure were performed. After that the transesophageal echocardiogram probe was advanced into the stomach and fixed to obtain transgastric view was. The probe was brought into the mid esophagus. Inter-atrial septum was interrogated using 2D images, color Doppler images, and then contrast study. After that transesophageal echocardiogram was withdrawn out and upon withdrawing the descending thoracic aorta all the way up to the arch was evaluated. FINDING: The left ventricular dimension appeared to be within normal limits. Left ventricular systolic function appeared to be mildly impaired with EF between 45- 50%. The right ventricle appeared to be mildly dilated left atrium appeared to be mildly dilated. The atrial appendage appeared to be free from any thrombus. The interatrial septum appeared to be intact. The aortic valve is trileaflet valve without stenosis or regurgitation. The mitral valve appeared to be mildly thickened with [id number] mitral regurgitation. There is [id number] tricuspid regurgitation. No evidence of pericardial effusion identified. CONCLUSION: 1. No evidence of any intracardiac thrombus and no evidence of left atrial appendage thrombus 2. Mildly impaired LV function with EF between 45-50% 3. [id number] mitral regurgitation 4. [id number] tricuspid regurgitation 5. No evidence of pericardial effusion 6. Normal aortic root dimension
--- NOTE | 2021-08-01 12:58 | P.PCN ---
Date of Procedure: 08/01/21 Operative Findings: Cardioversion Performing physician Omkar Conner M.D. Procedure performed Successful cardioversion of atrial fibrillation to normal sinus mechanism using 200 J and first attempt Indication Atrial flutter refractory to medical treatment Complication None Level of sedation The procedure was performed under deep sedation using propofol with CYLINDER VALVE REPAIRER neuro Procedure description After sedation was induced with CYLINDER VALVE REPAIRER in the room the patient cardioverted from atrial flutter to normal sinus mechanism using 75 J and first attempt Conclusion Successful cardioversion of atrial fibrillation to normal sinus mechanism Postprocedure management Continue the current medical regimen Continue oral anticoagulation Follow-up with the patient
--- NOTE | 2021-08-01 13:52 | P.PN ---
Subjective Progress Note Date: 08/01/21 HISTORY OF PRESENT ILLNESS 75-year-old male seen Dr. Hager cardiology [facility] and had known history of CAD post angioplasty and stent placement 6 last one was over 5 month ago. Patient just had right total knee arthroplasty in [facility] by Dr. banuelos on 07/18/2021 has done very well but was kept in the hospital overnight his pulse rate Running between 120-130 at the time the following day his symptom or better patient ended up going home did not require any further management. Apparently patient is on metoprolol tartrate 25 mg has been taking it twice a day along with Valente was in his pulse has been better up till now. Also patient is known to have obstructive sleep apnea he is supposed to be on CPAP but was not able to use it was at the CT for testing previously and could not use the see Pap order mask at all. Patient presented to the emergency department at [facility] today complaining of very rapid pulse with A. fib with RVR with presyncope like symptom along with severe excessive sweating tiredness fatigue with no chest pain with mild shortness of breath. Was seen and evaluated found to have pulse rate running around 160 beats per minutes after starting him on Cardizem drip his pulse rate came down ended up going off Cardizem drip. Patient is still on anticoagulation with Eliquis 5 mg twice a day. Otherwise testing including CBC and CMP BNP did not show any major abnormality. Thyroid testing were not done at this point. Patient will be kept in the hospital seen cardiology control his pulse titrate his medication try to keep his pulse in the 60s or 70s only. 08/01: Patient is denying any new concerns. He has been seen by cardiology and is scheduled for HAMIDA and cardioversion today with Dr. Conner. Patient has been afebrile, heart rate 58, blood pressure 138/88, pulse ox 95% on room air. 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 Anticipate discharge home tomorrow. REVIEW OF SYSTEMS Constitutional: No fever, no chills, no night sweats. No weight change. No weakness, fatigue or lethargy. No daytime sleepiness. EENT: No headache. No blurred vision or double vision, no loss of vision. No loss of Hearing, no ringing in the ears, no dizziness. No nasal drainage or congestion. No epistaxis. No sore throat. Lungs: Mild shortness of breath, no cough, no sputum production. No wheezing. Cardiovascular: No chest pain, no lower extremity edema. Positive palpitation with A. fib with RVR with mild orthopnea and PND. Abdominal: No abdominal pain. No nausea, vomiting. No diarrhea. No constipation. No bloody or tarry stools.. No loss of appetite. Genitourinary: No dysuria, increased frequency, urgency. No urinary retention. Musculoskeletal: No myalgias. No muscle weakness, no gait dysfunction, no frequent falls. No back pain. No neck pain. Slight discomfort in the right knee with slight swelling and redness with no calcified tenderness incision on the knee looks fine with no sign of infection. Integumentary: No wounds, no lesions. No rash or pruritus. No unusual bruising. No change in hair or nails. Neurologic: No aphasia. No facial droop. No change in mentation. No head injury. No headache. No paralysis. No paresthesia. Psychiatric: No depression. No anxiety. No mood swings. Endocrine: No abnormal blood sugars. No weight change. PHYSICAL EXAMINATION Gen: This is a 75-year-old morbidly obese laying in bed does not look in any respiratory distress. HEENT: Head is atraumatic, normocephalic. Pupils equal, round. Sclerae is anicteric. NECK: Supple. No JVD. No lymphadenopathy. No thyromegaly. LUNGS: Clear to auscultation. No wheezes or rhonchi. No intercostal retractions. HEART: Irregular rate and rhythm, S1, S2, no S3 or JVD. ABDOMEN: Soft. Bowel sounds are present. No masses. No tenderness. EXTREMITIES: The right knee incision looks fine slight redness and induration with no sign of infection no cough tenderness has more swelling in the right leg than the left side. DWIGHT hose in place. NEUROLOGICAL: Patient is awake, alert and oriented x3. Cranial nerves 2 through 12 are grossly intact. ASSESSMENT AND PLAN 1. A. fib with RVR, persistent atrial fibrillation. Cardiology consult appreciated. She is scheduled for HAMIDA and cardioversion today. Continue eliquis 5 mg twice daily, Lopressor 25 mg twice daily. I had long discussion with the patient and his and explained to him the correlation between sleep apnea and A. fib without having to control the sleep apnea his A. fib is not getting the be well controlled regardless have any medication we had. We will need further sleep study and management if he has to go back to see a sleep specialist for better management of CPAP or devices are mask to use it might help to control his A. fib much better otherwise management for now is to titrate his beta raffaele and keep him on anticoagulation. 2 advanced CAD: With multiple coronary artery blockage require many angioplasty and stent placement last one was few month ago by Dr. Hager patient has done very well still on secondary prevention with antiplatelet agent along with beta raffaele DOMINGO inhibitor and statin. 3 obstructive sleep apnea: Patient could not use his CPAP has not use it apparently last few years, referral to sleep center for better device or mass could be a good idea. 4 recent history of right total knee arthroplasty: The patient is recovering nicely with no major complication, pain is under control his mobility still limited at this point. 5 hypertension: Has been doing well on lisinopril and metoprolol. 6 hyperlipidemia: Remain on atorvastatin 80 mg a day. 7 severe GERD still on pantoprazole 40 mg daily. 8 chronic edema: Most likely chronic diastolic congestive heart failure, patient remain on lisinopril furosemide and metoprolol. 9 GI prophylaxis: Continue proton pump inhibitor. 10 DVT prophylaxis: Continue anticoagulation with liquids 5 mg twice a day. Ex CODE STATUS: Full code. DISCHARGE PLAN Home on Saturday Impression and plan of care have been directed as dictated by the signing physician. Yoly Hlems nurse practitioner acting as scribe for signing physician. Objective - Vital Signs Vital signs: Vital Signs Temp 97.7 F 08/01/21 07:00 Pulse 58 L 08/01/21 07:00 Resp 16 08/01/21 07:00 BP 138/88 08/01/21 07:00 Pulse Ox 95 08/01/21 07:00 Intake & Output 07/31/21 08/01/21 08/01/21 18:59 06:59 18:59 Output Total 300 Balance -300 Weight 118.388 kg Output: Urine 300 Other: # Voids 2 - Labs CBC & Chem 7: 07/31/21 12:31 07/31/21 12:31 Labs: Abnormal Lab Results - Last 24 Hours (Table) 07/31/21 07/31/21 Range/Units 12:31 12:31 RBC 4.17 L (4.30-5.90) m/uL Neutrophils # 7.9 H (1.3-7.7) k/uL Sodium 134 L (137-145) mmol/L Glucose 107 H (74-99) mg/dL C-Reactive Protein 1.0 H (<1.0) mg/dL Total Protein 6.0 L (6.3-8.2) g/dL Albumin 3.3 L (3.5-5.0) g/dL
[2021-08-01] MEDS: ATORVASTATIN 80 MG TAB PO SCH (21:26)
[2021-08-01] MEDS: lisinopriL 10 MG TAB PO SCH (21:27)
[2021-08-02 07:32] VITALS: BP 130/65; PULSE 65; TEMP 97.7
[2021-08-02] MEDS: METOPROLOL TARTRATE 25 MG TAB PO SCH (07:44)
[2021-08-02] MEDS: CLOPIDOGREL 75 MG TAB PO SCH (07:44)
[2021-08-02] MEDS: FUROSEMIDE 40 MG TAB PO SCH (07:44)
[2021-08-02] MEDS: APIXABAN 5 MG TAB PO SCH (07:44)
[2021-08-02] MEDS: HYDROcodone/APAP 5-325MG 1 EACH TAB PO PRN (07:50)
[2021-08-02] MEDS ORDERED: METOPROLOL TARTRATE 25 MG TAB PO ONE (08:00)
--- NOTE | 2021-08-02 08:06 | P.DS ---
Providers Date of admission: 07/31/21 14:45 Expected date of discharge: 08/02/21 Attending physician: Alo Fowler Consults: 07/31/21 14:47 Consult Physician Routine Consulting Provider: Tien Villa Consult Reason/Comments: afib with rvr Do you want consulting provider notified?: Already Contacted Primary care physician: Mark James MD Hospital Course: HISTORY OF PRESENT ILLNESS 75-year-old male seen Dr. Hager cardiology [facility] and had known history of CAD post angioplasty and stent placement 6 last one was over 5 month ago. Patient just had right total knee arthroplasty in [facility] by Dr. banuelos on 07/18/2021 has done very well but was kept in the hospital overnight his pulse rate Running between 120-130 at the time the following day his symptom or better patient ended up going home did not require any further management. Apparently patient is on metoprolol tartrate 25 mg has been taking it twice a day along with Valente was in his pulse has been better up till now. Also patient is known to have obstructive sleep apnea he is supposed to be on CPAP but was not able to use it was at the [place] for testing previously and could not use the see Pap order mask at all. Patient presented to the emergency department at [facility] today complaining of very rapid pulse with A. fib with RVR with presyncope like symptom along with severe excessive sweating tiredness fatigue with no chest pain with mild shortness of breath. Was seen and evaluated found to have pulse rate running around 160 beats per minutes after starting him on Cardizem drip his pulse rate came down ended up going off Cardizem drip. Patient is still on anticoagulation with Eliquis 5 mg twice a day. Otherwise testing including CBC and CMP BNP did not show any major abnormality. Thyroid testing were not done at this point. Patient will be kept in the hospital seen cardiology control his pulse titrate his medication try to keep his pulse in the 60s or 70s only. 08/01: Patient is denying any new concerns. He has been seen by cardiology and is scheduled for HAMIDA and cardioversion today with Dr. Conner. Patient has been afebrile, heart rate 58, blood pressure 138/88, pulse ox 95% on room air. 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 Anticipate discharge home tomorrow. 08/02: Marquis, patient underwent successful HAMIDA and cardioversion with Dr. Connre. HAMIDA revealed no evidence of any intracardiac thrombus and no evidence of left atrial appendage thrombus, mildly impaired LV function with EF of 45-50%, gybh-ko-[id number] mitral regurgitation, kaws-pm-ersbionw tricuspid regurgitation, no evidence of pericardial effusion, normal aortic root dimension. 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 Cardiology has increased Lopressor to 50 mg twice daily. Patient denies having any palpitations or chest pain, no lightheadedness or dizziness. He has been seen by cardiology this morning cleared for discharge. Patient will be discharged today in stable condition. DISCHARGE DIAGNOSES 1. A. fib with RVR, persistent atrial fibrillation. 2 advanced CAD: With multiple coronary artery blockage require many angioplasty and stent placement last one was few month ago by Dr. Hager 3 obstructive sleep apnea: Patient could not use his CPAP has not use it apparently last few years, referral to sleep center for better device. 4 recent history of right total knee arthroplasty 5 hypertension 6 hyperlipidemia 7 severe GERD 8 chronic edema: Most likely chronic diastolic congestive heart failure DISCHARGE PLAN Home Greater than 35 minutes was utilized and coordinating patient's discharge. Impression and plan of care have been directed as dictated by the signing physician. Yoyl Helms nurse practitioner acting as scribe for signing physician. Patient Condition at Discharge: Good Plan - Discharge Summary Discharge Rx Participant: No New Discharge Prescriptions: New Metoprolol Tartrate [Lopressor] 50 mg PO BID 30 Days #60 tab Continue Enalapril Maleate [Vasotec] 5 mg PO HS Multivitamins, Thera [Multivitamin (formulary)] 1 tab PO DAILY Nitroglycerin Sl Tabs [Nitrostat] 0.4 mg SUBLINGUAL Q5M PRN #25 tab PRN Reason: Chest Pain Clopidogrel Bisulfate [Plavix] 75 mg PO DAILY Furosemide [Lasix] 40 mg PO DAILY Omeprazole Magnesium [PriLOSEC OTC] 40 mg PO DAILY PRN PRN Reason: GERD Loratadine 10 mg PO DAILY PRN PRN Reason: Allergy Symptoms Atorvastatin [Lipitor] 80 mg PO HS Magnesium Gluconate [Magonate] 500 mg PO DAILY Calcium Carbonate/Vitamin D3 [Calcium 600 mg-D3 20 mcg (800 unit)] 1 tab PO DAILY Apixaban [Eliquis] 5 mg PO BID Discontinued Metoprolol Tartrate [Lopressor] 25 mg PO BID Discharge Medication List Enalapril Maleate [Vasotec] 5 mg PO HS 02/13/19 [History] Multivitamins, Thera [Multivitamin (formulary)] 1 tab PO DAILY 02/13/19 [History] Nitroglycerin Sl Tabs [Nitrostat] 0.4 mg SUBLINGUAL Q5M PRN #25 tab 02/17/19 [Rx] Clopidogrel Bisulfate [Plavix] 75 mg PO DAILY 01/08/20 [History] Furosemide [Lasix] 40 mg PO DAILY 01/08/20 [History] Omeprazole Magnesium [PriLOSEC OTC] 40 mg PO DAILY PRN 06/03/20 [History] Apixaban [Eliquis] 5 mg PO BID 06/20/21 [History] Calcium Carbonate/Vitamin D3 [Calcium 600 mg-D3 20 mcg (800 unit)] 1 tab PO DAILY 06/20/21 [History] Loratadine 10 mg PO DAILY PRN 06/20/21 [History] Magnesium Gluconate [Magonate] 500 mg PO DAILY 06/20/21 [History] Atorvastatin [Lipitor] 80 mg PO HS 07/31/21 [History] Metoprolol Tartrate [Lopressor] 50 mg PO BID 30 Days #60 tab 08/02/21 [Rx] Follow up Appointment(s)/Referral(s): Ronda Hager MD [STAFF PHYSICIAN] - 1 Week (Office will call patient with date and time of appointment.) Mark James MD [Primary Care Provider] - 1 Week Discharge Disposition: HOME SELF-CARE
--- NOTE | 2021-08-02 09:54 | ECHOF ---
Referral Reason:A fib MEASUREMENTS -------- HEIGHT: 177.8 cm WEIGHT: 118.4 kg BP: 138/88 RVIDd: 4.0 cm (< 3.3) IVSd: 1.6 cm (0.6 - 1.1) LVIDd: 3.9 cm (3.9 - 5.3) LVPWd: 1.6 cm (0.6 - 1.1) IVSs: 2.3 cm LVIDs: 0.8 cm LVPWs: 2.0 cm LAESV Index (A-L): 37.72 ml/m Ao Diam: 3.0 cm (2.0 - 3.7) AV Cusp: 1.8 cm (1.5 - 2.6) LA Diam: 4.9 cm (2.7 - 3.8) MV EXCURSION: 16.432 mm (> 18.000) MV EF SLOPE: 105 mm/s (70 - 150) EPSS: 0.9 cm FINDINGS -------- Atrial fibrillation. This was a technically adequate study. The left ventricular size is normal. There is moderate concentric left ventricular hypertrophy. O verall left ventricular systolic function is low-normal with, an EF between 50 - 55 %. The right ventricle is moderately enlarged. LA is moderately dilated 34-39 ml/m2 The right atrial size is normal. Interatrial and interventricular septum intact. The aortic valve is trileaflet and appears structurally normal. There is no evidence of aortic regu rgitation. There is no evidence of aortic stenosis. Twso-ax-nkkkdfqd mitral regurgitation is present. Mild tricuspid regurgitation present. There is no evidence of pulmonary hypertension. The right v entricular systolic pressure, as measured by Doppler, is {RVSP}. There is no pulmonic regurgitation present. The aortic root size is normal. IVC Not well visulized. There is a trivial pericardial effusion present. CONCLUSIONS -------- 1. The left ventricular size is normal. 2. There is moderate concentric left ventricular hypertrophy. 3. Overall left ventricular systolic function is low-normal with, an EF between 50 - 55 %. 4. The right ventricle is moderately enlarged. 5. LA is moderately dilated 34-39 ml/m2 6. Brvg-qa-oexdxbqw mitral regurgitation is present. 7. Mild tricuspid regurgitation present. 8. There is a trivial pericardial effusion present. VOTING MACHINE MECHANIC: Concepcion Luna RDCS
--- NOTE | 2021-08-02 10:02 | P.PN ---
Subjective This is a pleasant 75-year-old male with a past medical history of coronary artery disease status post multi-vessel stenting (PCI of LAD and mid RCA in 2002, PCI distal RCA in 2008, PCI to the LAD in 2018, and PCI of the mid RCA in 05/2020), dyslipidemia, former nicotine dependence, hypertension, sleep apnea persistent atrial fibrillation on Eliquis, prostate cancer, Recent right total knee arthroplasty in [facility] on 07/18/2021. He follows in the office with Dr. Hager. We have been asked to see in consultation for atrial fibrillation with rapid response. Patient presents to the hospital with complaints of palpitations and elevated heart rate. He also had symptoms of fatigue, tiredness and lightheadedness. He denies any chest pain or shortness of breath. He has been taking his medications at home including beta raffaele and Eliquis for 2 weeks. He endorses miscommunication with his medications for his right knee surgery and only was taking his beta raffaele and eliquis. He states his symptoms have improved. On admission, he was in atrial fibrillation with HR 120s. Overnight HR has improved in the 90s. DIAGNOSTICS EKG on admission atrial fibrillation with rapid ventricular response, heart rate 119, PVCs Most recent Lexiscan stress test was negative for inducible ischemia on 03/2021 Most recent echocardiogram 11/2019 revealed an EF of 55%, mild concentric LVH, mild mitral regurgitation, mild to moderate tricuspid regurgitation Most recent cardiac catheterization 05/2020 revealed previously stented LAD was widely patent, Dr. Hager performed orbital arthrectomy and stenting of the mid RCA with 2 TYRONE Current home medications include atorvastatin 80 mg daily, Eliquis 5 mg twice a day, Lasix 40 mg daily, enalapril 5 mg nightly, Plavix 75 mg daily, multivitamin, metoprolol tartrate 25 mg twice a day 08/02/2021 Patient underwent successful HAMIDA cardioversion with first attempt with Dr. Conner yesterday 08/01/2021. HAMIDA revealed No evidence of any intracardiac thrombus and no evidence of left atrial appendage thrombus, Mildly impaired LV function with EF between 45-50%, Qubs-xc-nsafgbfm mitral regurgitation, Qwge-pz-hiqsgzqa tricuspid regurgitation, No evidence of pericardial effusion, Normal aortic root dimension. Telemetry reviewed patient maintaining sinus mechanism with heart rates in the 6070s. He's currently maintained on metoprolol tartrate 25 mg twice a day, Eliquis 5 mg twice a day, Plavix 70 mg daily, Lasix 40 mg daily, lisinopril 10 mg daily PHYSICAL EXAMINATION Vitals reviewed CONSTITUTIONAL: No apparent distress. HEENT: Neck supple No JVD. CHEST EXAMINATION: Lungs are clear to auscultation. No chest wall tenderness is noted on palpation or with deep breathing. HEART EXAMINATION: Regular rate and rhythm. S1, S2 heard. No murmurs, gallops or rub. ABDOMEN: Soft, nontender. Positive bowel sounds. EXTREMITIES: 2+ peripheral pulses, no lower extremity edema and no calf tenderness. NEUROLOGIC EXAMINATION: Patient is awake, alert and oriented x3. ASSESSMENT Persistent Atrial fibrillation with RVR, symptomatic, on Eliquis s/p HAMIDA Cardioversion on 08/01/2021 Coronary artery disease status post multi-vessel stenting (PCI of LAD and mid RCA in 2002, PCI distal RCA in 2008, PCI to the LAD in 2018, and PCI of the mid RCA in 05/2020) Dyslipidemia Former nicotine dependence History of hypertension Obstructive sleep apnea History of prostate cancer Recent right total knee arthroplasty in [facility] on 07/18/2021 PLAN -Increase metoprolol tartrate to 50 mg twice a day -Continue other home cardiac medications. Continue anticoagulation with Eliquis -From a cardiology perspective, patient stable and discharged home. Follow-up with Dr. Hager outpatient Nurse practitioner note has been reviewed by physician. Signing provider agrees with the documented findings, assessment, and plan of care. Objective - Vital Signs Vital signs: Vital Signs Temp 97.7 F 08/02/21 07:31 Pulse 65 08/02/21 07:31 Resp 16 08/02/21 07:31 BP 130/65 08/02/21 07:31 Pulse Ox 92 L 08/02/21 09:50 Intake & Output 08/01/21 08/02/21 08/02/21 18:59 06:59 18:59 Intake Total 218 118 Balance 218 118 Intake: IV 100 Oral 118 118 Other: Voiding Method Toilet # Voids 1 2 - Labs CBC & Chem 7: 07/31/21 12:31 07/31/21 12:31
[2021-08-02] MEDS ORDERED: METOPROLOL TARTRATE 50 MG TAB PO SCH (21:00)
== END 2021-08-02 11:52 | disposition home or self-care (01) ==
LOC: EC 11:38 → 6NMEDSUR 14:45
PROVIDERS: ADMIT Internal Medicine Geriatric Medicine; ATTEND Internal Medicine Geriatric Medicine
DX: I48.19 Other persistent atrial fibrillation (principal); I25.10 Atherosclerotic heart disease of native coronary artery without angina pectoris; G47.33 Obstructive sleep apnea (adult) (pediatric); I10 Essential (primary) hypertension; I25.2 Old myocardial infarction; K21.9 Gastro-esophageal reflux disease without esophagitis; E78.5 Hyperlipidemia, unspecified; R00.0 Tachycardia, unspecified; R61 Generalized hyperhidrosis; M19.90 Unspecified osteoarthritis, unspecified site; E66.01 Morbid (severe) obesity due to excess calories; Z68.37 Body mass index [BMI] 37.0-37.9, adult; R60.9 Edema, unspecified; I49.3 Ventricular premature depolarization; I48.92 Unspecified atrial flutter; I08.1 Rheumatic disorders of both mitral and tricuspid valves; Z95.5 Presence of coronary angioplasty implant and graft; Z86.718 Personal history of other venous thrombosis and embolism; Z85.46 Personal history of malignant neoplasm of prostate; Z87.891 Personal history of nicotine dependence; Z79.02 Long term (current) use of antithrombotics/antiplatelets; Z79.899 Other long term (current) drug therapy; Z79.01 Long term (current) use of anticoagulants; Z91.048 Other nonmedicinal substance allergy status; Z90.49 Acquired absence of other specified parts of digestive tract; Z96.651 Presence of right artificial knee joint; Z83.3 Family history of diabetes mellitus; Z82.49 Family history of ischemic heart disease and other diseases of the circulatory system; Z80.0 Family history of malignant neoplasm of digestive organs; Z83.6 Family history of other diseases of the respiratory system
CPT/HCPCS: 96361; 96374; 99285; 36415; 94760; 93005; 93312; 93320; 93306; 93325; 92960; 83880; 80053; 84443; 83605; 83735; 84484; 85025; 85610; 85730; 86140; 81003; 73562; 71046; G0378 ×3; J2001; J2704

== ENCOUNTER → 2021-10-23 | Outpatient (CLI) | payer MEDICARE ==
--- NOTE | 2021-10-23 15:43 | CT ---
EXAMINATION TYPE: CT abdomen pelvis w con DATE OF EXAM: 10/23/2021 COMPARISON: None available HISTORY: prostate ca CT DLP: 2363.8 mGycm Automated exposure control for dose reduction was used. TECHNIQUE: Helical acquisition of images was performed from the lung bases through the pelvis. CONTRAST: Performed with Oral Contrast and with IV Contrast, patient injected with 100 mL of Isovue 300. FINDINGS: LUNG BASES: Minimal bilateral basal pulmonary reticulations and subtle fibrotic changes. Indeterminat e 2 right basal nodules each measuring 5 mm, stable since May 2020 CT chest. Coronary arterial ca lcifications. Small right gynecomastia changes. LIVER/GB: No significant abnormality is appreciated. PANCREAS: No significant abnormality is seen. SPLEEN: No significant abnormality is seen. ADRENALS: No significant abnormality is seen. KIDNEYS: Bilateral renal cysts without suspicious feature. FREE AIR: No free air is visualized. RETROPERITONEAL ADENOPATHY: None visualized REPRODUCTIVE ORGANS: No prostatic enlargement. Unremarkable seminal vesicles. URINARY BLADDER: Slightly thickened urinary bladder wall, nonspecific. Please correlate with urine a nalysis results. PELVIC ADENOPATHY: Subcentimeter bilateral inguinal and external iliac lymph nodes, nonspecific. 10 mm right common iliac lymph node. OSSEOUS STRUCTURES: Millimetric sclerotic foci are seen within the pelvic bones and lower lumbar jean claude tebrae, nonspecific. Recommend correlation with bone scan results. BOWEL: Uncomplicated colonic diverticulosis. Diffuse colonic wall thickening, nonspecific. Recommend correlation with colonoscopy results. OTHER: Scattered arterial atherosclerotic calcifications. No sizable ascites. Slightly sheryl root of mesentery with millimetric mesenteric lymph nodes which can be seen in cases of mild mesenteric panni culitis. Pelvic fat stranding which could be related to previous pelvic radiation. IMPRESSION: Millimeter right common iliac lymph node with other scattered smaller bilateral inguinal and external iliac lymph nodes, nonspecific. Few scattered millimetric sclerotic foci in the lower lumbar spine and pelvic bones, nonspecific. Rec ommend correlation with bone scan results. Otherwise no evidence of metastatic disease seen in the abdomen or the pelvis. Incidental findings as described above.
== END | disposition home or self-care (01) ==
LOC: RADCTMAIN 11:07
PROVIDERS: ATTEND Urology
DX: C61 Malignant neoplasm of prostate (principal); R59.0 Localized enlarged lymph nodes
CPT/HCPCS: 82565; 84520; 74177; 36415; Q9967

== ENCOUNTER → 2021-10-27 | Outpatient (CLI) | payer MEDICARE ==
--- NOTE | 2021-10-27 14:11 | NM ---
EXAMINATION TYPE: NM pul vent and perfuse DATE OF EXAM: 10/27/2021 COMPARISON: Chest radiograph 10/27/2021. HISTORY: Shortness of breath. TECHNIQUE: Utilizing inhalation of 36.8 mCi Tc 99m DTPA aerosol and intravenous injection of 5.23 mC i of Tc 99m MAA, ventilation and perfusion images are acquired post injection in multiple projections . FINDINGS: There is no evidence of mismatched defects. There is nonsegmental diminished activity identified scat tered throughout both lungs. No wedge-shaped perfusion abnormalities identified. IMPRESSION: Very low probability of pulmonary embolus.
--- NOTE | 2021-10-27 14:18 | XR ---
EXAMINATION TYPE: XR chest 2V DATE OF EXAM: 10/27/2021 2:04 PM COMPARISON: Chest radiographs from 07/23/2021 TECHNIQUE: XR chest 2V Frontal and lateral views of the chest. CLINICAL INDICATION:Male, 76 years old with history of I27.82; FINDINGS: Lungs/Pleura: Low lung volumes are present. There is no evidence of pleural effusion, focal consolida tion, or pneumothorax. Pulmonary vascularity: Pulmonary vascular congestion. Heart/mediastinum: Cardiomediastinal silhouette is enlarged and stable. Musculoskeletal: No acute osseous pathology. IMPRESSION: Low lung volumes with pulmonary vascular congestion. Correlate with BNP for congestive heart failure. Cardiomegaly
== END | disposition home or self-care (01) ==
LOC: RADNMMAIN 12:25
PROVIDERS: ATTEND Internal Medicine Interventional Cardiology
DX: R91.8 Other nonspecific abnormal finding of lung field (principal); I51.7 Cardiomegaly
CPT/HCPCS: 71046; 78582; A9540; A9567

== ENCOUNTER → 2021-10-30 | Outpatient (CLI) | payer MEDICARE ==
--- NOTE | 2021-10-30 13:57 | NM ---
EXAMINATION TYPE: NM bone scan whole body DATE OF EXAM: 10/30/2021 COMPARISON: NONE HISTORY: Prostate cancer Delayed whole-body scanning was performed following the injection of 22.9 mCi Tc 99m MDP. Images acq uired 3 hours post injection. FINDINGS: Photopenic defects involving the right knee surrounding increased uptake likely is postsurgical in ab normal uptake involving the sternoclavicular joints, shoulders and left knee likely postoperative. There is nonspecific spotty uptake involving the rib cage bilaterally. Focal area of abnormal uptake involving the central calvarium likely benign. Faint uptake involving the cervical spine likely degenerative. IMPRESSION: 1. Nonspecific spotty uptake involving the ribs recommend dedicated rib series bilaterally. 2. The tiny sclerotic lesion seen by recent scan of the pelvis and lumbar spine are not seen definiti vely by bone scan but are very small in size and may be too small to detect by bone scan. Findings mo st likely benign but should be followed on a short-term basis with CT scan to confirm stability over time.
== END | disposition home or self-care (01) ==
LOC: RADNMMAIN 09:44
PROVIDERS: ATTEND Urology
DX: C61 Malignant neoplasm of prostate (principal)
CPT/HCPCS: 78306; A9503

== ENCOUNTER → 2022-01-17 | Outpatient (CLI) | payer MEDICARE ==
[2022-01-17 16:45] LABS: Anion Gap 11.4 mmol/L (10.00-18.00); Blood Urea Nitrogen 14.7 mg/dL (9.0-27.0); Carbon Dioxide 27.6 mmol/L (20.0-27.5); Non-African American GFR(CKD) 73.3 (60.0-200.0); Potassium 4.6 mmol/L (3.5-5.5)
[2022-01-17 17:23] LABS: HCT 41.5 % (39.6-50.0); HGB 13.6 g/dL (13.0-17.0); MCH 30.4 pg (27.0-32.0); MCHC 32.8 g/dL (32.0-37.0); MCV 92.6 fL (80.0-97.0); Mean Platelet Volume 11.3 fL (9.5-12.2); NRBC Per 100 WBC 0 /100 WBCS (0.0-0.0); Platelet Count 149 X 10*3/uL (140-440); RBC 4.48 X 10*6/uL (4.40-5.60); RDW 15.8 % (11.5-14.5); WBC 7.47 X 10*3/uL (4.50-10.00)
== END | disposition home or self-care (01) ==
LOC: LABPAT 10:21
PROVIDERS: ATTEND Internal Medicine Clinical Cardiac Electrophysiology
DX: Z01.812 Encounter for preprocedural laboratory examination (principal); I48.19 Other persistent atrial fibrillation; I49.3 Ventricular premature depolarization
CPT/HCPCS: 80051; 82565; 84520; 85027

== ENCOUNTER → 2022-01-17 | Outpatient (CLI) | payer MEDICARE ==
[2022-01-17 16:40] LABS: T4, Free (Free Thyroxine) 0.92 ng/dL (0.800-1.800)
== END | disposition home or self-care (01) ==
LOC: LABWHC1 10:23
PROVIDERS: ATTEND Internal Medicine
DX: R79.89 Other specified abnormal findings of blood chemistry (principal)
CPT/HCPCS: 36415; 84439; 84443

== ENCOUNTER 2022-01-25 05:56 | Day surgery (SDC) | payer MEDICARE ==
[2022-01-23 15:07] VITALS: BMI 37.8
[~2022-01-25 05:56] MED LIST changes: -ALPRAZolam 0.25 MG TAB PO PRN; -ALPRAZolam 0.5 MG TAB PO PRN; -ASPIRIN 325 MG TAB PO STA; -ATORVASTATIN 80 MG TAB PO STA; -HEPARIN SODIUM,PORCINE 10,000 UNIT in SODIUM CHLORIDE 0.9% 1,000 ML IRRIGATION PRN; -HEPARIN SODIUM,PORCINE 2,500 UNIT in SODIUM CHLORIDE 0.9% 250 ML IRRIGATION PRN; +LACTATED RINGERS 1,000 ML IV SCH; -NITROGLYCERIN SL TABS 0.4 MG TAB SUBLINGUAL PRN; +SODIUM CHLORIDE 0.9% 1,000 ML IV SCH; -SODIUM CHLORIDE 0.9% 1,000 ML in EMPTY BAG 1 BAG IV ONE
[2022-01-25] MEDS ORDERED: LIDOCAINE 2% INJ 20 MG/ML (2 ML VIAL) ONE (07:18)
[2022-01-25] MEDS ORDERED: ONDANSETRON 4 MG/2 ML VIAL ONE (07:18)
[2022-01-25] MEDS ORDERED: SUCCINYLCHOLINE CHLORIDE 200 MG/10 ML VIAL IV ONE (07:18)
[2022-01-25] MEDS ORDERED: PROPOFOL 10 MG/ML 20 ML VIAL IV ONE (07:18)
[2022-01-25] MEDS ORDERED: PHENYLEPHRINE-0.9% NACL SYG 1,000 MCG/10 ML SYRINGE ONE (07:18)
[2022-01-25] MEDS ORDERED: fentaNYL (PF) 50 MCG/ML 2 ML AMP ONE (07:18)
[2022-01-25] MEDS ORDERED: ATROPINE SULFATE 0.1 MG/ML 10ML SYRINGE ONE (07:18)
[2022-01-25] MEDS ORDERED: ePHEDrine 50 MG/ML 1 ML VIAL ONE (07:18)
[2022-01-25] MEDS ORDERED: MIDAZOLAM 2 MG/2 ML VIAL ONE (07:18)
[2022-01-25] MEDS ORDERED: HEPARIN SODIUM,PORCINE 10,000 UNIT/ML 1 ML VIAL ONE (07:18)
--- NOTE | 2022-01-25 07:41 | P.HPCAR ---
History of Present Illness This is Dr. Acuña dictating an H/P on this patient The patient was interviewed and examined IMPRESSION / ASSESSMENT: Persistent atrial fibrillation, symptomatic with shortness of breath sinus fatigue Failed antiarrhythmic drug therapy and electrical cardioversion History of pulmonary embolism and DVT in July 2021 Known coronary artery disease status post stenting Left ventricular ejection fraction 50% with moderately dilated left atrium Occluded RCA inferior basal hypokinesis March 2011 stress test enough any evidence for ischemia PLAN: A. fib ablation with PVI and linear ablation in the left atrium HPI Patient continues to complain of tiredness fatigue and shortness of breath He remains in atrial fibrillation He is feeling electrical cardioversion on drug therapy improving Multaq His symptoms persist despite adequate rate control He denies any syncope fever chills cough expectoration chest discomfort or ort hopnea ROS: No fever chills or rigors, no cough, phlegm or expectoration, no nausea, vomiting or diarrhea, no hematuria, dysuria, no musculoskeletal complaints, no strokes or seizures, no skin lesions. EXAMINATION: Afebrile 97.9F pulse rate 100 beats a minute blood pressure 163 was 77 mmHg line external jugular veins prominent Breath sounds are reduced bilaterally Heart sounds soft Extremities warm with bilateral lower extremity edema REVIEW OF LABS, ECG & MEDICAL DATA Medications include enalapril Plavix Lipitor ELIQUIS metoprolol Lasix Physical Exam Vitals: Vital Signs Temp Pulse Resp BP Pulse Ox 01/25/22 06:23 97.9 F 102 H 18 163/77 98 Intake and Output 01/24/22 01/25/22 01/25/22 22:59 06:59 14:59 Intake Total 20 Balance 20 Intake: IV 20 Past Medical History Past Medical History: Atrial Fibrillation, Coronary Artery Disease (CAD), Cancer, Deep Vein Thrombosis (DVT), Eye Disorder, GERD/Reflux, Hyperlipidemia, Myocardial Infarction ([place]), Osteoarthritis ([place]), Pneumonia, Prostate Disorder, Sleep Apnea/CPAP/BIPAP Additional Past Medical History / Comment(s): See Dr Acuña's H&P. Recent fungal infection in groin area, applying cream given by Dr James. Agent [place] Exposure. Prostate cancer diagnosed 5 yrs ago, being treated with hormone injections/radiation. Hx DVT in right leg following shoulder surgery, and also after knee surgery. Lower extremity edema. In the past "told he had a murmur, no else ever heard it". Bursitis bilateral shoulders.Does not tolerate CPAP. Hypoglycemia. Bilateral cataracts. Bilateral hearing aid use. Last Myocardial Infarction Date:: 2008 History of Any Multi-Drug Resistant Organisms: None Reported Past Surgical History: Adenoidectomy, Appendectomy, Heart Catheterization, Heart Catheterization With Stent, Joint Replacement, Orthopedic Surgery, Tonsillectomy Additional Past Surgical History / Comment(s): Total right knee arthroplasty, bilateral shoulder surgery, prostate biopsy, colonoscopy. Past Anesthesia/Blood Transfusion Reactions: No Reported Reaction Date of Last Stent Placement:: 2020 Past Psychological History: No Psychological Hx Reported Smoking Status: Former smoker Past Alcohol Use History: Occasional Additional Past Alcohol Use History / Comment(s): Started smoking in 1967 and quit in 1973. Past Drug Use History: None Reported - Past Family History Mother Family Medical History: Congestive Heart Failure (CHF), Coronary Artery Disease (CAD), Diabetes Mellitus, Deep Vein Thrombosis (DVT) Father Family Medical History: Cancer Additional Family Medical History / Comment(s): Colon cancer. Brother(s) Family Medical History: Pulmonary Embolus Physical Examination Vital Signs Temp Pulse Resp BP Pulse Ox 01/25/22 06:23 97.9 F 102 H 18 163/77 98 Intake and Output 01/24/22 01/25/22 01/25/22 22:59 06:59 14:59 Intake Total 20 Balance 20 Intake: IV 20 Results Current Medications Generic Name Dose Route Start Last Admin Trade Name Freq PRN Reason Stop Dose Admin Lactated Ringer's 1,000 mls @ 20 mls/hr 01/25/22 05:53 Lactated Ringers IV 02/24/22 05:54 .Q24H JORGE A Sodium Chloride 1,000 mls @ 20 mls/hr 01/25/22 05:53 01/25/22 06:26 Saline 0.9% IV 02/24/22 05:54 20 mls .Q24H JORGE A Administration Intake and Output 01/24/22 01/25/22 01/25/22 22:59 06:59 14:59 Intake Total 20 Balance 20 Intake: IV 20
[2022-01-25] MEDS ORDERED: HEPARIN SOD,PORK IN 0.45% NACL 25,000 UNIT in 0.45% NACL 1 250ML.BAG IV ONE (07:53)
[2022-01-25] MEDS ORDERED: LIDOCAINE 1% INJ 10MG/ML (30 ML VIAL-PF) SQ ONE (07:56)
[2022-01-25] MEDS ORDERED: SODIUM CHLORIDE 0.9% 500 ML 500 ML IV ONE (10:16)
[2022-01-25] MEDS ORDERED: PANTOPRAZOLE 40 MG TABLET PO PRN (10:33)
[2022-01-25] MEDS ORDERED: ISOSORBIDE MONONITRATE ER 30 MG TAB.ER.24H PO PRN (10:33)
[2022-01-25] MEDS ORDERED: ACETAMINOPHEN TAB 325 MG TAB PO PRN (10:38)
--- NOTE | 2022-01-25 10:56 | P.PRLE ---
RE: Alo Salazar Dear Dr. Jacob Prajapati underwent in A. fib ablation for persistent, symptomatic atrial fibrillation He has failed antiarrhythmic drug therapy and electrical cardioversion He has coronary artery disease status post stenting He's had a pulmonary embolism and DVT He has persistent atrial fibrillation He underwent pulmonary vein isolation successfully thereafter a left atrial roof ablation was performed in a linear fashion The left atrial septum was then ablated successfully However he remained in atrial fibrillation despite a fairly extensive ablation and underwent electrical cardioversion to sinus rhythm Hopefully this results in a significant reduction in his AF burden He should continue anticoagulation lifelong Thank you for entrusting me with the care of the patient Warm regards Sincerely Kurt Acuña
--- NOTE | 2022-01-25 10:58 | P.EPPROC ---
- EP Procedure Note Electrophysiology Procedure Note: Electrophysiology Procedure Note: PROCEDURE A. 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 fib ablation/pulmonary vein isolation of all veins using cryo- ablation Complete entrance block in all 4 veins confirmed No evidence for phrenic nerve injury Left atrial septal ablation Left atrial roof linear ablation Esophageal deflection YES, right-sided esophagus Electrical cardioversion with a synchronized shock across the chest YES / NO PROCEDURE DETAILS Patient was brought to the EP lab in a fasting state after obtaining written informed consent. Procedure performed under general anesthesia Esophagus was intubated. Esophageal temperature monitoring with circa catheter. Esophageal deflection with an endoscope to avoid hypothermia of the esophagus. After initial muscle relaxant use, muscle relaxants were not given thereafter in order to assess phrenic nerve during procedure. Patient prepped and draped as per protocol Cryo ablation-set up with standard preparation of the cryoablation tools done. Femoral Venous access obtained on the right and left groins and sheaths placed Diagnostic catheters for the high right atrium, phrenic nerve stimulation and pacing, His bundle, coronary sinus placed Intracardiac echo catheter placed. Long sheath placed in the right atrium Left and right transseptal catheterization performed under intracardiac echo guidance. Intravenous heparin with aCT above 300 Later, catheter positioning and balloon positioning in the left atrium and pulmonary veins, under intracardiac echo guidance Diagnostic EP study with coronary sinus pacing and recording Baseline measurements: AH 116, HV 63 WA 159, QRS 118, QT 487 Sinus cycle length 978 Transseptal catheterization performed RA pressure 20/15/80 LA pressure 31/13/22 Transseptal catheterization performed with standard sheath. The cryoablation sheath was then placed with an over the wire exchange without any acute complications. The cryoablation balloon was placed in the office of each pulmonary vein and all 4 pulmonary veins were isolated. IV dye was injected to confirm occlusion. Goal: achieve complete occlusion of the pulmonary vein, achieve -30 degrees C at 30 seconds and achieve -40 degrees C at 60 seconds and a time to effect of less than 60 seconds. If not, the balloon was repositioned to obtain this result After completion of Cryoblation with durations from 180-240 seconds, entrance block was confirmed with the Attain circular catheter in a roving fashion around the antrum of the pulmonary veins Phrenic nerve pacing was performed from the SVC, right innominate vein area and diaphragm voltage was monitored. Diaphragmatic contractions were also monitored manually for strength of contraction. At the end of the procedure the Achieve catheter was once again used to check for entrance block Linear ablation with serial Cryoblation's, overlapping lesions, for complete linear ablation along the roof Absence of atrial electrograms in the roof at the end Left septal ablation performed cannulating the lower branch of the RS PD Ablation of the electrograms in the septum The right inferior pulmonary vein was difficult to cannulate then placed the balloon Multiple attempts were made and finally were able to get a good occlusion with excellent temperatures with complete isolation Phrenic nerve stimulation was positive at 4.5 mV within the RS PV chest pain on the balloon 2 additional lesions in the antrum were delivered a little outside the vein for antral isolation Pulmonary vein Isolation with the first lesion occurred in 50 seconds in the RSPV As a result this took an extra duration and effort ablated the right-sided veins Phrenic nerve stimulation was performed to confirm diaphragmatic stimulation the end of the procedure Cine fluoroscopy was performed at the very end of the procedure to confirm movement of both diaphragms with inspiration and expiration Patient remained in atrial fibrillation at the end of the procedure despite complete PVI him a left atrial roof line and left atrial septal ablation Electrical cardioversion was performed to sinus rhythm At the end of the procedure the patient was extubated Venous sheaths were removed and hemostasis assured with a closure device PROCEDURES PERFORMED Diagnostic EP study CS pacing and recording Left and right transseptal catheterization Catheter the mapping of the tachycardia Intracardiac echocardiography Pulmonary vein isolation with transseptal and comprehensive EPS, 99166 Left atrial roof line, +[id number] Linear ablation, left atrium, +[id number] Electrical cardioversion with a synchronized shock across the chest 72552 Extended procedure
[2022-01-25] MEDS ORDERED: ACETAMINOPHEN IV (For NPO) 1,000 MG in EMPTY BAG 1 BAG IVPB ONE (13:00)
[2022-01-25] MEDS: APIXABAN 5 MG TAB PO SCH (20:39)
[2022-01-25] MEDS: METOPROLOL TARTRATE 50 MG TAB PO SCH (20:39)
[2022-01-25] MEDS ORDERED: ATORVASTATIN 80 MG TAB PO SCH (21:00)
[2022-01-25] MEDS ORDERED: lisinopriL 10 MG TAB PO SCH (21:00)
--- NOTE | 2022-01-26 08:07 | P.DS ---
Providers Attending physician: Kurt Acuña Primary care physician: Mark James MD Hospital Course: Patient was resting comfortably in bed and sitting up the edge of the bed to Denies any dizziness lightheadedness nausea chest pain no shortness of breath no orthopnea PND On examination regular rhythm Normal heart sounds Normal breath sounds no rhonchi no crackles Blood pressure 132/81 mmHg pulse rate 60s to 80s sinus mechanism Telemetry shows sinus mechanism Impression Persistent atrial fibrillation Coronary artery disease status post stenting History of pulmonary embolism Status post A. fib ablation with PVI, linear ablation the left atrial roof and the left atrial septum ablation Electrical cardioversion to sinus rhythm Plan Continue anticoagulation lifelong Continue current medications Follow-up with Dr. Hager in about a week Plan - Discharge Summary Discharge Rx Participant: No New Discharge Prescriptions: Continue RX: Enalapril Maleate [Vasotec] 5 mg PO HS RX: Multivitamins, Thera [Multivitamin (formulary)] 1 tab PO DAILY RX: Nitroglycerin Sl Tabs [Nitrostat] 0.4 mg SUBLINGUAL Q5M PRN #25 tab PRN Reason: Chest Pain RX: Clopidogrel Bisulfate [Plavix] 75 mg PO QAM RX: Furosemide [Lasix] 40 mg PO QAM RX: Atorvastatin [Lipitor] 80 mg PO HS RX: Metoprolol Tartrate 100 mg PO BID RX: Loratadine-Pseudoeph 10-240 mg [Claritin-D 24 Hour] 1 tab PO DAILY PRN PRN Reason: Allergic Reaction RX: Omeprazole [PriLOSEC] 40 mg PO DAILY PRN PRN Reason: Acid Reflux RX: Nystatin 100,000Unit/gm Cream [Mycostatin Cream] 1 applic TOPICAL BID RX: Magnesium Gluconate [Magonate] 500 mg PO HS RX: Calcium Carbonate/Vitamin D3 [Calcium 600 mg-D3 20 mcg (800 unit)] 1 tab PO QAM RX: Apixaban [Eliquis] 5 mg PO BID RX: Isosorbide Mononitrate [Isosorbide Mononitrate ER] 30 mg PO DIRECTED PRN PRN Reason: Fatigue Discharge Medication List RX: Enalapril Maleate [Vasotec] 5 mg PO HS 02/13/19 [History] RX: Multivitamins, Thera [Multivitamin (formulary)] 1 tab PO DAILY 02/13/19 [History] RX: Nitroglycerin Sl Tabs [Nitrostat] 0.4 mg SUBLINGUAL Q5M PRN #25 tab 02/17/19 [Rx] RX: Clopidogrel Bisulfate [Plavix] 75 mg PO QAM 01/08/20 [History] RX: Furosemide [Lasix] 40 mg PO QAM 01/08/20 [History] RX: Apixaban [Eliquis] 5 mg PO BID 06/20/21 [History] RX: Calcium Carbonate/Vitamin D3 [Calcium 600 mg-D3 20 mcg (800 unit)] 1 tab PO QAM 06/20/21 [History] RX: Magnesium Gluconate [Magonate] 500 mg PO HS 06/20/21 [History] RX: Atorvastatin [Lipitor] 80 mg PO HS 07/31/21 [History] RX: Isosorbide Mononitrate [Isosorbide Mononitrate ER] 30 mg PO DIRECTED PRN 01/23/22 [History] RX: Loratadine-Pseudoeph 10-240 mg [Claritin-D 24 Hour] 1 tab PO DAILY PRN 01/23/22 [History] RX: Metoprolol Tartrate 100 mg PO BID 01/23/22 [History] RX: Nystatin 100,000Unit/gm Cream [Mycostatin Cream] 1 applic TOPICAL BID 01/23/22 [History] RX: Omeprazole [PriLOSEC] 40 mg PO DAILY PRN 01/23/22 [History] Follow up Appointment(s)/Referral(s): Kurt Acuña MD [STAFF PHYSICIAN] - As Needed (Follow-up with Dr. Hager in 1 week) Ronda Hager MD [STAFF PHYSICIAN] - 1 Week (Follow Dr. Hager in 1 week) Activity/Diet/Wound Care/Special Instructions: Post EP study - Ablation instructions 1. Keep access sites dry for 2 days. 2. No heavy lifting or straining for 2 days. 3. Avoid bending the hips repeatedly for 2 days. 4. You may go up and down stairs slowly Call if the following is noted 1. Bleeding, increasing swelling or pain at the access sites. 2. Increasing chest discomfort, especially upon taking a deep breath. 3. Increasing shortness of breath, at rest or with exertion. 4. Undue cough / phlegm 5. Difficulty or pain while swallowing. 6. Pain or change in color in the extremities. 7. Fever, chills, rigors. 8. Increasing headache or neurologic symptoms. 9. Dizziness, fainting, palpitations Continue ELIQUIS
[2022-01-26] MEDS ORDERED: FUROSEMIDE 40 MG TAB PO SCH (09:00)
[2022-01-26] MEDS ORDERED: CLOPIDOGREL 75 MG TAB PO SCH (09:00)
[2022-01-26] MEDS: APIXABAN 5 MG TAB PO SCH (09:19)
[2022-01-26] MEDS: METOPROLOL TARTRATE 50 MG TAB PO SCH (09:19)
[2022-01-26 09:20] VITALS: BP 107/72; PULSE 68; RESP 18; TEMP 97.5
== END 2022-01-26 10:30 | disposition home or self-care (01) ==
LOC: CATHEP 05:56 → 6NMEDSUR 15:01 → CATHEP 01-26 10:30
PROVIDERS: ATTEND Internal Medicine Clinical Cardiac Electrophysiology
DX: I48.19 Other persistent atrial fibrillation (principal); Z86.718 Personal history of other venous thrombosis and embolism; Z86.711 Personal history of pulmonary embolism; I25.10 Atherosclerotic heart disease of native coronary artery without angina pectoris; I51.7 Cardiomegaly; I49.3 Ventricular premature depolarization; E78.5 Hyperlipidemia, unspecified; Z20.822 Contact with and (suspected) exposure to COVID-19; R60.0 Localized edema; Z72.0 Tobacco use; Z95.5 Presence of coronary angioplasty implant and graft; M19.90 Unspecified osteoarthritis, unspecified site; K21.9 Gastro-esophageal reflux disease without esophagitis; Z79.01 Long term (current) use of anticoagulants; Z79.02 Long term (current) use of antithrombotics/antiplatelets; Z79.899 Other long term (current) drug therapy; Z91.09 Other allergy status, other than to drugs and biological substances
CPT/HCPCS: 92960; 93656; 93657; 87635; C1894 ×2; C1769 ×4; C1760; C1730 ×2; C1759; C1893; C1733; C1766; J2250; J0330; J1644 ×2; J2405; J2001 ×2; J0461; J3010; J0131; J2370; J2704

== ENCOUNTER 2022-01-28 05:03 | Observation (INO) | payer MEDICARE ==
[2022-01-28 06:05] LABS: Basophils % (A) 0 %; Eosinophils # (A) 0.2 k/uL (0-0.7); Eosinophils % (A) 3 %; HCT 38.2 % (39.0-53.0); HGB 12.2 gm/dL (13.0-17.5); Lymphocytes # (A) 1.9 k/uL (1.0-4.8); Lymphocytes % (A) 23 %; MCH 30.6 pg (25.0-35.0); MCV 95.7 fL (80.0-100.0); Mean Platelet Volume 8.4; Monocytes # (A) 0.8 k/uL (0-1.0); Monocytes % (A) 10 %; Neutrophils % (A) 62 %; Platelet Count 123 k/uL (150-450); RBC 3.99 m/uL (4.30-5.90); RDW 14.6 % (11.5-15.5); WBC 8.1 k/uL (3.8-10.6)
[2022-01-28 06:22] LABS: ALT 28 U/L (4-49); AST 38 U/L (17-59); African American GFR (CKD) >90 (>60 ml/min/1.73 sqM); Alkaline Phosphatase 55 U/L (38-126); Anion Gap 9 mmol/L; Blood Urea Nitrogen 22 mg/dL (9-20); Calcium 8.4 mg/dL (8.4-10.2); Carbon Dioxide 28 mmol/L (22-30); Chloride 99 mmol/L (98-107); Glucose 104 mg/dL (74-99); Non-African American GFR(CKD) 82 (>60 ml/min/1.73 sqM); Potassium 4.2 mmol/L (3.5-5.1); Sodium 136 mmol/L (137-145); Total Bilirubin 0.9 mg/dL (0.2-1.3); Total Protein 6.3 g/dL (6.3-8.2)
[2022-01-28 06:31] LABS: INR 1.1 (<1.2); Partial Thromboplastin Time 23.6 sec (22.0-30.0); Prothrombin Time 11.4 sec (9.0-12.0)
--- NOTE | 2022-01-28 08:22 | ED ---
General Adult HPI - General Chief complaint: Shortness of Breath Stated complaint: JESUS Time Seen by Provider: 01/28/22 07:15 Source: patient, EMS, RN notes reviewed Mode of arrival: EMS Limitations: no limitations - History of Present Illness Initial comments: 76-year-old male presents emergency Department chief complaint of shortness of breath. Patient's been having progressive symptoms last 3 days. Patient states when he lays down flat. She is upright he has minimal to no symptoms. Patient denies any fevers or chills he has had a cough and which he states he has white frothy material. Patient denies any chest pain he states he did have a cardiac ablation [address] Acuña. Patient is on a request did not stop it at any point, he does have history of DVT he does have some leg swelling which is normal for him. He does take Lasix. - Related Data Home Medications Medication Instructions Recorded Confirmed Enalapril Maleate [Vasotec] 5 mg PO HS 02/13/19 01/25/22 Multivitamins, Thera [Multivitamin 1 tab PO DAILY 02/13/19 01/23/22 (formulary)] Clopidogrel Bisulfate [Plavix] 75 mg PO QAM 01/08/20 01/25/22 Furosemide [Lasix] 40 mg PO QAM 01/08/20 01/23/22 Apixaban [Eliquis] 5 mg PO BID 06/20/21 01/25/22 Calcium Carbonate/Vitamin D3 1 tab PO QAM 06/20/21 01/23/22 [Calcium 600 mg-D3 20 mcg (800 unit)] Magnesium Gluconate [Magonate] 500 mg PO HS 06/20/21 01/23/22 Atorvastatin [Lipitor] 80 mg PO HS 07/31/21 01/25/22 Isosorbide Mononitrate [Isosorbide 30 mg PO DIRECTED PRN 01/23/22 01/23/22 Mononitrate ER] Loratadine-Pseudoeph 10-240 mg 1 tab PO DAILY PRN 01/23/22 01/23/22 [Claritin-D 24 Hour] Metoprolol Tartrate 100 mg PO BID 01/23/22 01/25/22 Nystatin 100,000Unit/gm Cream 1 applic TOPICAL BID 01/23/22 01/23/22 [Mycostatin Cream] Omeprazole [PriLOSEC] 40 mg PO DAILY PRN 01/23/22 01/23/22 Previous Rx's Medication Instructions Recorded Nitroglycerin Sl Tabs [Nitrostat] 0.4 mg SUBLINGUAL Q5M PRN #25 tab 02/17/19 Allergies Allergy/AdvReac Type Severity Reaction Status Date / Time adhesive AdvReac skin tears Verified 01/28/22 05:35 - please use paper tape Review of Systems ROS Statement: Those systems with pertinent positive or pertinent negative responses have been documented in the HPI. ROS Other: All systems not noted in ROS Statement are negative. Past Medical History Past Medical History: Atrial Fibrillation, Coronary Artery Disease (CAD), Cancer, Deep Vein Thrombosis (DVT), Eye Disorder, GERD/Reflux, Hyperlipidemia, Hypertension, Myocardial Infarction ([place]), Osteoarthritis (OA), Pneumonia, Prostate Disorder, Sleep Apnea/CPAP/BIPAP Additional Past Medical History / Comment(s): Prostate cancer treated with hormone injections/radiation, DVT R leg following shoulder surgery, lower extremity edema, past told he had a murmur, bursitis bilateral shoulders, SISSY/does not tolerate device, hypoglycemia, bilateral cataracts Last Myocardial Infarction Date:: 2008 History of Any Multi-Drug Resistant Organisms: None Reported Past Surgical History: Ablation, Adenoidectomy, Appendectomy, Heart Catheterization, Heart Catheterization With Stent, Joint Replacement, Orthopedic Surgery, Prostate Surgery, Tonsillectomy Additional Past Surgical History / Comment(s): Recent total R knee arthroplasty, bilateral shoulder surgeries, prostate biopsy, colonoscopy. Past Anesthesia/Blood Transfusion Reactions: No Reported Reaction Date of Last Stent Placement:: 2020 Past Psychological History: No Psychological Hx Reported Smoking Status: Former smoker Past Alcohol Use History: Occasional Past Drug Use History: None Reported General Exam Limitations: no limitations General appearance: alert, in no apparent distress Head exam: Present: atraumatic, normocephalic, normal inspection Eye exam: Present: normal appearance, PERRL, EOMI. Absent: scleral icterus, conjunctival injection, periorbital swelling ENT exam: Present: normal exam, mucous membranes moist Neck exam: Present: normal inspection. Absent: tenderness, meningismus, lymphadenopathy Respiratory exam: Present: decreased breath sounds. Absent: normal lung sounds bilaterally, respiratory distress, wheezes, rales, rhonchi, stridor Cardiovascular Exam: Present: regular rate, normal rhythm, normal heart sounds. Absent: systolic murmur, diastolic murmur, rubs, gallop, clicks Extremities exam: Present: pedal edema Course Vital Signs 01/28/22 05:32 Temperature 97.8 F Pulse Rate 55 L Respiratory 18 Rate Blood Pressure 120/62 O2 Sat by Pulse 97 Oximetry Medical Decision Making - Medical Decision Making 76-year-old male presented from it for orthopnea. Patient did have recent procedure with cardiac enzymes are elevated but her significant elevated 1.06. I did discuss case with cardiology who will come and evaluate the patient. Patient be admitted with echocardiogram. - Lab Data Result diagrams: 01/28/22 05:54 01/28/22 05:54 Lab Results 01/28/22 01/28/22 01/28/22 Range/Units 05:54 05:54 05:54 WBC 8.1 (3.8-10.6) k/uL RBC 3.99 L (4.30-5.90) m/uL Hgb 12.2 L (13.0-17.5) gm/dL Hct 38.2 L (39.0-53.0) % MCV 95.7 (80.0-100.0) fL MCH 30.6 (25.0-35.0) pg MCHC 32.0 (31.0-37.0) g/dL RDW 14.6 (11.5-15.5) % Plt Count 123 L (150-450) k/uL MPV 8.4 Neutrophils % 62 % Lymphocytes % 23 % Monocytes % 10 % Eosinophils % 3 % Basophils % 0 % Neutrophils # 5.0 (1.3-7.7) k/uL Lymphocytes # 1.9 (1.0-4.8) k/uL Monocytes # 0.8 (0-1.0) k/uL Eosinophils # 0.2 (0-0.7) k/uL Basophils # 0.0 (0-0.2) k/uL PT 11.4 (9.0-12.0) sec INR 1.1 (<1.2) APTT 23.6 (22.0-30.0) sec Sodium 136 L (137-145) mmol/L Potassium 4.2 (3.5-5.1) mmol/L Chloride 99 (98-107) mmol/L Carbon Dioxide 28 (22-30) mmol/L Anion Gap 9 mmol/L BUN 22 H (9-20) mg/dL Creatinine 0.91 (0.66-1.25) mg/dL Est GFR (CKD-EPI)AfAm >90 (>60 ml/min/1.73 sqM) Est GFR (CKD-EPI)NonAf 82 (>60 ml/min/1.73 sqM) Glucose 104 H (74-99) mg/dL Calcium 8.4 (8.4-10.2) mg/dL Total Bilirubin 0.9 (0.2-1.3) mg/dL AST 38 (17-59) U/L ALT 28 (4-49) U/L Alkaline Phosphatase 55 (38-126) U/L Troponin I (0.000-0.034) ng/mL NT-Pro-B Natriuret Pep pg/mL Total Protein 6.3 (6.3-8.2) g/dL Albumin 4.0 (3.5-5.0) g/dL 01/28/22 01/28/22 Range/Units 05:54 05:54 WBC (3.8-10.6) k/uL RBC (4.30-5.90) m/uL Hgb (13.0-17.5) gm/dL Hct (39.0-53.0) % MCV (80.0-100.0) fL MCH (25.0-35.0) pg MCHC (31.0-37.0) g/dL RDW (11.5-15.5) % Plt Count (150-450) k/uL MPV Neutrophils % % Lymphocytes % % Monocytes % % Eosinophils % % Basophils % % Neutrophils # (1.3-7.7) k/uL Lymphocytes # (1.0-4.8) k/uL Monocytes # (0-1.0) k/uL Eosinophils # (0-0.7) k/uL Basophils # (0-0.2) k/uL PT (9.0-12.0) sec INR (<1.2) APTT (22.0-30.0) sec Sodium (137-145) mmol/L Potassium (3.5-5.1) mmol/L Chloride (98-107) mmol/L Carbon Dioxide (22-30) mmol/L Anion Gap mmol/L BUN (9-20) mg/dL Creatinine (0.66-1.25) mg/dL Est GFR (CKD-EPI)AfAm (>60 ml/min/1.73 sqM) Est GFR (CKD-EPI)NonAf (>60 ml/min/1.73 sqM) Glucose (74-99) mg/dL Calcium (8.4-10.2) mg/dL Total Bilirubin (0.2-1.3) mg/dL AST (17-59) U/L ALT (4-49) U/L Alkaline Phosphatase (38-126) U/L Troponin I 1.060 H* (0.000-0.034) ng/mL NT-Pro-B Natriuret Pep 858 pg/mL Total Protein (6.3-8.2) g/dL Albumin (3.5-5.0) g/dL Disposition Clinical Impression: Orthopnea, Status post ablation of atrial fibrillation Disposition: ADMITTED IP TO THIS HOSP Condition: Fair Referrals: Mark James MD [Primary Care Provider] - 1-2 days Time of Disposition: 08:52
--- NOTE | 2022-01-28 08:43 | XR ---
EXAMINATION TYPE: XR chest 2V DATE OF EXAM: 01/28/2022 COMPARISON: 10/28/2019 HISTORY: Shortness of breath TECHNIQUE: Frontal and lateral views of the chest are obtained. FINDINGS: Scattered senescent parenchymal changes noted. No evidence for infiltrate. No evidence for atelectasis. Heart size is stable. Mediastinal structures are stable and grossly unremarkable. No evidence for hilar prominence. Degenerative changes dorsal spine. IMPRESSION: 1. No evidence for acute pulmonary disease.
--- NOTE | 2022-01-28 10:35 | P.HPIM ---
History of Present Illness This is a pleasant 76 years old male with past medical history of atrial fibrillation , status post ablation, GERD, hypertension, hyperlipidemia, osteoarthritis, sleep apnea, prostate cancer treated with hormone therapy injection and trifurcation. He was recently discharged from this hospital after he was admitted under Dr. Sheikh service 01/25-01/26 he was treated for his persistent atrial fibrillation and underwent ablation procedure. They recommended to continue with anticoagulation and follow-up with Dr. Hager. Patient was discharged on Saturday and then the same day once he got home he starts having shortness of breath w hich was significant but getting worse especially with lying flat so he decided to come to the hospital today. He denies any chest pain but he has occasional cough with phlegm. No headache or weakness or numbness or bowel problem, no vomiting or diarrhea or abdominal pain. No urgency. No fever. Patient quit smoking 50 years ago, drinks alcohol occasionally with no illicit tracts. Vitas looks stable on admission and heart rate is around 55-61. Only mild anemia at 12.2, sodium 136, BUN 22, glucose 104. Troponin is 1.0. Rest of BMP and liver enzymes are unremarkable. INR is 1.1 EKG showing normal sinus rhythm at 60 night with frequent PVCs. Chest x-ray: No evidence of acute pulmonary process Patient did not receive medication and emergency room Review of Systems Review of systems CONSTITUTIONAL: No fever, no malaise, no fatigue. HEENT: No recent visual problems or hearing problems. Denied any sore throat. CARDIOVASCULAR: No orthopnea, PND, no palpitations, no syncope. PULMONARY: No chest wall tenderness, no hemoptysis. GASTROINTESTINAL: No diarrhea, no nausea, no vomiting, no abdominal pain. Normoactive bowel sounds. NEUROLOGICAL: No headaches, no weakness, no numbness. HEMATOLOGICAL: Denies any bleeding or petechiae. GENITOURINARY: Denies any burning micturition, frequency, or urgency. MUSCULOSKELETAL/RHEUMATOLOGICAL: Denies any joint pain, swelling, or any muscle pain. ENDOCRINE: Denies any polyuria or polydipsia. Past Medical History Past Medical History: Atrial Fibrillation, Coronary Artery Disease (CAD), Cancer, Deep Vein Thrombosis (DVT), Eye Disorder, GERD/Reflux, Hyperlipidemia, Hypertension, Myocardial Infarction (CT), Osteoarthritis (OA), Pneumonia, Prostate Disorder, Sleep Apnea/CPAP/BIPAP Additional Past Medical History / Comment(s): Prostate cancer treated with hormone injections/radiation, DVT R leg following shoulder surgery, lower extremity edema, past told he had a murmur, bursitis bilateral shoulders, SISSY/does not tolerate device, hypoglycemia, bilateral cataracts Last Myocardial Infarction Date:: 2008 History of Any Multi-Drug Resistant Organisms: None Reported Past Surgical History: Ablation, Adenoidectomy, Appendectomy, Heart Catheterization, Heart Catheterization With Stent, Joint Replacement, Orthopedic Surgery, Prostate Surgery, Tonsillectomy Additional Past Surgical History / Comment(s): Recent total R knee arthroplasty, bilateral shoulder surgeries, prostate biopsy, colonoscopy. Ablation 01/25/2022 Past Anesthesia/Blood Transfusion Reactions: No Reported Reaction Date of Last Stent Placement:: 2020 Past Psychological History: No Psychological Hx Reported Additional Psychological History / Comment(s): Pt resides with his spouse. He is attending outpt PT d/t recent total R knee arthroplasty. His spouse is currently the courier delivery driver. Smoking Status: Former smoker Past Alcohol Use History: Occasional Additional Past Alcohol Use History / Comment(s): Pt started smoking in 1967 and quit in 1973 Past Drug Use History: None Reported - Past Family History Mother Family Medical History: Congestive Heart Failure (CHF), Diabetes Mellitus Additional Family Medical History / Comment(s): CABG Father Family Medical History: Cancer Additional Family Medical History / Comment(s): of colon cancer Medications and Allergies Home Medications Medication Instructions Recorded Confirmed Type Enalapril Maleate [Vasotec] 5 mg PO HS 02/13/19 01/25/22 History Multivitamins, Thera [Multivitamin 1 tab PO DAILY 02/13/19 01/23/22 History (formulary)] Nitroglycerin Sl Tabs [Nitrostat] 0.4 mg SUBLINGUAL Q5M PRN #25 tab 02/17/19 01/23/22 Rx Clopidogrel Bisulfate [Plavix] 75 mg PO QAM 01/08/20 01/25/22 History Furosemide [Lasix] 40 mg PO QAM 01/08/20 01/23/22 History Apixaban [Eliquis] 5 mg PO BID 06/20/21 01/25/22 History Calcium Carbonate/Vitamin D3 1 tab PO QAM 06/20/21 01/23/22 History [Calcium 600 mg-D3 20 mcg (800 unit)] Magnesium Gluconate [Magonate] 500 mg PO HS 06/20/21 01/23/22 History Atorvastatin [Lipitor] 80 mg PO HS 07/31/21 01/25/22 History Isosorbide Mononitrate [Isosorbide 30 mg PO DIRECTED PRN 01/23/22 01/23/22 History Mononitrate ER] Loratadine-Pseudoeph 10-240 mg 1 tab PO DAILY PRN 01/23/22 01/23/22 History [Claritin-D 24 Hour] Metoprolol Tartrate 100 mg PO BID 01/23/22 01/25/22 History Nystatin 100,000Unit/gm Cream 1 applic TOPICAL BID 01/23/22 01/23/22 History [Mycostatin Cream] Omeprazole [PriLOSEC] 40 mg PO DAILY PRN 01/23/22 01/23/22 History Allergies Allergy/AdvReac Type Severity Reaction Status Date / Time adhesive AdvReac skin tears Verified 01/28/22 05:35 - please use paper tape Physical Exam Vitals: Vital Signs Temp Pulse Pulse Resp BP BP Pulse Ox 01/28/22 09:44 98.1 F 70 20 152/63 98 01/28/22 09:00 97.5 F L 61 18 145/76 98 01/28/22 05:32 97.8 F 55 L 18 120/62 97 Intake and Output 01/27/22 01/28/22 01/28/22 22:59 06:59 14:59 Other: Weight 119.748 kg 119.748 kg -GENERAL: The patient is alert and oriented x3, not in any acute distress obese. HEENT: Pupils are round and equally reacting to light. EOMI. No scleral icterus. No conjunctival pallor. Normocephalic, atraumatic. No pharyngeal erythema. No thyromegaly. CARDIOVASCULAR: S1 and S2 present. No murmurs, rubs, or gallops. PULMONARY: Chest is clear to auscultation, no wheezing or crackles. ABDOMEN: Soft, nontender, nondistended, normoactive bowel sounds. No palpable organomegaly. MUSCULOSKELETAL: No joint swelling or deformity. -EXTREMITIES: No cyanosis, clubbing, . Bilateral leg swelling NEUROLOGICAL: Gross neurological examination did not reveal any focal deficits. SKIN: No rashes. no petechiae. Results CBC & Chem 7: 01/28/22 05:54 01/28/22 05:54 Labs: Abnormal Lab Results - Last 24 Hours (Table) 01/28/22 01/28/22 01/28/22 Range/Units 05:54 05:54 05:54 RBC 3.99 L (4.30-5.90) m/uL Hgb 12.2 L (13.0-17.5) gm/dL Hct 38.2 L (39.0-53.0) % Plt Count 123 L (150-450) k/uL Sodium 136 L (137-145) mmol/L BUN 22 H (9-20) mg/dL Glucose 104 H (74-99) mg/dL Troponin I 1.060 H* (0.000-0.034) ng/mL Thrombosis Risk Factor Assmnt - Choose All That Apply Any of the Below Risk Factors Present?: Yes Each Factor Represents 1 point: Swollen legs (current) Other Risk Factors: Yes Each Risk Factor Represents 3 Points: Age 75 years or older, History of DVT/PE Other congenital or acquired thrombophilia - If yes, enter type in comment: No Thrombosis Risk Factor Assessment Total Risk Factor Score: 7 Thrombosis Risk Factor Assessment Level: High Risk Assessment and Plan Assessment: A. fib status post recent ablation Elevated troponin secondary to above Bilateral leg edema History of GERD Hypertension Hyperlipidemia History of osteoarthritis History of sleep apnea History of prostate cancer status post radiotherapy in her monotherapy Obesity with BMI of 37.9 Plan: This is a pleasant 76 years old male who presents with shortness of breath. Patient will be admitted to the telemetry floor with close monitoring Cardiology consult Labs and medication were reviewed.. Continue same treatment (home medications has not verified to). Continue with symptomatic treatment. Resume home medication. Monitor lytes and vitals. DVT and GI prophylaxis. Further recommendations as per clinical course of the patient DVT prophylaxis: Eliquis GI prophylaxis: Pepcid PT/OT, Pending Prognosis is guarded
[2022-01-28] MEDS ORDERED: NITROGLYCERIN SL TABS 0.4 MG TAB SUBLINGUAL PRN (10:58)
--- NOTE | 2022-01-28 11:12 | P.CRDCN ---
History of Present Illness Consult date: 01/28/22 History of present illness: History of Present Illness: The patient is a 76-year-old male with a known history of CAD, followed by Dr. Hager, post PCI who had recurrent atrial fibrillation and underwent ablation by Dr. Acuña last week, since the procedure he has been complaining of PND, orthopnea and significant dyspnea on exertion. He denies any chest discomfort, dizziness or palpitations. He has chronic peripheral edema. He presented to the emergency room and subsequently admitted. His ejection fraction in July was 50-55% with [id number] mitral regurgitation and mild tricuspid regurgitation. His activity level has been stable until this procedure. In the emergency room he was found to have mild troponin elevation. His NT proBNP was within normal range. He has a history of hypertension and hyperlipidemia, he is nondiabetic, nonsmoker. He is in sinus mechanism. Medications: Lasix 40 mg daily, Vasotec 5 mg daily, Plavix 75 mg daily, Lipitor 80 mg daily, metoprolol tartrate 100 mg twice a day, Eliquis 5 mg twice a day Review of Systems: Respiratory: He has dyspnea on exertion for the last few days with no significant cough GI: No nausea or vomiting . No history of peptic ulcer disease. No recent GI bleed. : No hematuria or dysuria. Nervous System: No stroke or seizure. Physical Examination: 76-year-old male, alert oriented no apparent distress,Blood pressure 145/70, Heart rate 60 Head: Normocephalic. Eyes: Sclerae nonicteric. Neck: Good carotid upstroke, no bruit, no jugular venous distention. Lungs: Clear to auscultation with few crackles at the bases. Heart: Regular rate and rhythm, S1-S2, no S3, no rub. Systolic ejection murmur. Abdomen: Soft nontender, positive bowel sounds no organomegaly. Extremities: 1 + edema, intact distal pulses. Labs: Hemoglobin 12.2, BUN 22, creatinine 0.91. Troponin 1.0, 0.88. NT proBNP 858. Chest x-ray with no acute infiltrate EKG: Sinus mechanism with frequent PVCs Impression: 1. Symptoms of dyspnea, post ablation could be transient LV dysfunction 2. Atrial fibrillation, remains in sinus mechanism post ablation 3. Elevated troponin, secondary to the ablation 4. History of CAD, no evidence to suggest acute coronary syndrome 5. History of hypertension 6. History of hyperlipidemia Plan: 1. IV diuretics for 24 hours 2. Resume beta raffaele and DOMINGO inhibitor 3. Obtain an echocardiogram with Doppler 4. If stable with no significant change on the echocardiogram probably discharged home tomorrow 5. Thank you for this consult we will follow with you Past Medical History Past Medical History: Atrial Fibrillation, Coronary Artery Disease (CAD), Cancer, Deep Vein Thrombosis (DVT), Eye Disorder, GERD/Reflux, Hyperlipidemia, H ypertension, Myocardial Infarction ([place]), Osteoarthritis (OA), Pneumonia, Prostate Disorder, Sleep Apnea/CPAP/BIPAP Additional Past Medical History / Comment(s): Prostate cancer treated with hormone injections/radiation, DVT R leg following shoulder surgery, lower extremity edema, past told he had a murmur, bursitis bilateral shoulders, SISSY/does not tolerate device, hypoglycemia, bilateral cataracts Last Myocardial Infarction Date:: 2008 History of Any Multi-Drug Resistant Organisms: None Reported Past Surgical History: Ablation, Adenoidectomy, Appendectomy, Heart Catheterization, Heart Catheterization With Stent, Joint Replacement, Orthopedic Surgery, Prostate Surgery, Tonsillectomy Additional Past Surgical History / Comment(s): Recent total R knee arthroplasty, bilateral shoulder surgeries, prostate biopsy, colonoscopy. Ablation 01/25/2022 Past Anesthesia/Blood Transfusion Reactions: No Reported Reaction Date of Last Stent Placement:: 2020 Past Psychological History: No Psychological Hx Reported Additional Psychological History / Comment(s): Pt resides with his spouse. He is attending outpt PT d/t recent total R knee arthroplasty. His spouse is currently the route driver. Smoking Status: Former smoker Past Alcohol Use History: Occasional Additional Past Alcohol Use History / Comment(s): Pt started smoking in 1967 and quit in 1973 Past Drug Use History: None Reported - Past Family History Mother Family Medical History: Congestive Heart Failure (CHF), Diabetes Mellitus Additional Family Medical History / Comment(s): CABG Father Family Medical History: Cancer Additional Family Medical History / Comment(s): of colon cancer Medications and Allergies Home Medications Medication Instructions Recorded Confirmed Type Enalapril Maleate [Vasotec] 5 mg PO HS 02/13/19 01/25/22 History Multivitamins, Thera [Multivitamin 1 tab PO DAILY 02/13/19 01/23/22 History (formulary)] Nitroglycerin Sl Tabs [Nitrostat] 0.4 mg SUBLINGUAL Q5M PRN #25 tab 02/17/19 01/23/22 Rx Clopidogrel Bisulfate [Plavix] 75 mg PO QAM 01/08/20 01/25/22 History Furosemide [Lasix] 40 mg PO QAM 01/08/20 01/23/22 History Apixaban [Eliquis] 5 mg PO BID 06/20/21 01/25/22 History Calcium Carbonate/Vitamin D3 1 tab PO QAM 06/20/21 01/23/22 History [Calcium 600 mg-D3 20 mcg (800 unit)] Magnesium Gluconate [Magonate] 500 mg PO HS 06/20/21 01/23/22 History Atorvastatin [Lipitor] 80 mg PO HS 07/31/21 01/25/22 History Isosorbide Mononitrate [Isosorbide 30 mg PO DIRECTED PRN 01/23/22 01/23/22 History Mononitrate ER] Loratadine-Pseudoeph 10-240 mg 1 tab PO DAILY PRN 01/23/22 01/23/22 History [Claritin-D 24 Hour] Metoprolol Tartrate 100 mg PO BID 01/23/22 01/25/22 History Nystatin 100,000Unit/gm Cream 1 applic TOPICAL BID 01/23/22 01/23/22 History [Mycostatin Cream] Omeprazole [PriLOSEC] 40 mg PO DAILY PRN 01/23/22 01/23/22 History Allergies Allergy/AdvReac Type Severity Reaction Status Date / Time adhesive AdvReac skin tears Verified 01/28/22 05:35 - please use paper tape Physical Exam Vitals: Vital Signs Temp Pulse Pulse Resp BP BP Pulse Ox 01/28/22 09:44 98.1 F 70 20 152/63 98 01/28/22 09:00 97.5 F L 61 18 145/76 98 01/28/22 05:32 97.8 F 55 L 18 120/62 97 Intake and Output 01/27/22 01/28/22 01/28/22 22:59 06:59 14:59 Other: Weight 119.748 kg 119.748 kg Results 01/28/22 05:54 01/28/22 05:54 Cardiac Enzymes 01/28/22 01/28/22 01/28/22 Range/Units 05:54 05:54 09:41 AST 38 (17-59) U/L Troponin I 1.060 H* 0.880 H* (0.000-0.034) ng/mL Coagulation 01/28/22 Range/Units 05:54 PT 11.4 (9.0-12.0) sec APTT 23.6 (22.0-30.0) sec CBC 01/28/22 Range/Units 05:54 WBC 8.1 (3.8-10.6) k/uL RBC 3.99 L (4.30-5.90) m/uL Hgb 12.2 L (13.0-17.5) gm/dL Hct 38.2 L (39.0-53.0) % Plt Count 123 L (150-450) k/uL Comprehensive Metabolic Panel 01/28/22 Range/Units 05:54 Sodium 136 L (137-145) mmol/L Potassium 4.2 (3.5-5.1) mmol/L Chloride 99 (98-107) mmol/L Carbon Dioxide 28 (22-30) mmol/L BUN 22 H (9-20) mg/dL Creatinine 0.91 (0.66-1.25) mg/dL Glucose 104 H (74-99) mg/dL Calcium 8.4 (8.4-10.2) mg/dL AST 38 (17-59) U/L ALT 28 (4-49) U/L Alkaline Phosphatase 55 (38-126) U/L Total Protein 6.3 (6.3-8.2) g/dL Albumin 4.0 (3.5-5.0) g/dL Current Medications Generic Name Dose Route Start Last Admin Trade Name Freq PRN Reason Stop Dose Admin Apixaban 5 mg 01/28/22 11:00 Apixaban 5 Mg Tab PO BID [facility] Protocol Atorvastatin Calcium 80 mg 01/28/22 21:00 Atorvastatin 80 Mg Tab PO HS [facility] Clopidogrel Bisulfate 75 mg 01/28/22 10:59 Clopidogrel 75 Mg Tab PO QAM [facility] Famotidine 20 mg 01/28/22 21:00 Famotidine 20 Mg/2 Ml Vial IV Q12HR [facility] Metoprolol Tartrate 100 mg 01/28/22 11:00 Metoprolol Tartrate 25 Mg Tab PO BID [facility] Nitroglycerin 0.4 mg 01/28/22 10:58 Nitroglycerin Sl Tabs 0.4 Mg Tab SUBLINGUAL Q5M PRN Chest Pain Non-Formulary Medication 5 mg 01/28/22 21:00 Enalapril Maleate [Vasotec] PO HS JORGE A Intake and Output 01/27/22 01/28/22 01/28/22 22:59 06:59 14:59 Other: Weight 119.748 kg 119.748 kg Patient Weight 01/29/22 06:59 Weight 119.748 kg 01/28/22 05:54 01/28/22 05:54
[2022-01-28] MEDS: APIXABAN 5 MG TAB PO SCH ×2 (11:23→20:49)
[2022-01-28] MEDS: METOPROLOL TARTRATE 50 MG TAB PO SCH ×2 (11:23→20:49)
[2022-01-28] MEDS: CLOPIDOGREL 75 MG TAB PO SCH (11:23)
[2022-01-28 20:45] VITALS: RESP 18
[2022-01-28] MEDS: FAMOTIDINE 20 MG/2 ML VIAL IV SCH (20:48)
[2022-01-28] MEDS ORDERED: ATORVASTATIN 80 MG TAB PO SCH (21:00)
[2022-01-28] MEDS ORDERED: lisinopriL 10 MG TAB PO SCH (21:00)
[2022-01-29 04:41] VITALS: TEMP 97.7
[2022-01-29 08:50] VITALS: BP 139/73; PULSE 57
[2022-01-29] MEDS: APIXABAN 5 MG TAB PO SCH (08:50)
[2022-01-29] MEDS: CLOPIDOGREL 75 MG TAB PO SCH (08:50)
[2022-01-29] MEDS: METOPROLOL TARTRATE 50 MG TAB PO SCH (08:50)
[2022-01-29] MEDS: FAMOTIDINE 20 MG/2 ML VIAL IV SCH (08:51)
[2022-01-29] MEDS ORDERED: FUROSEMIDE 40 MG TAB PO SCH ×2 (09:00)
[2022-01-29 09:58] LABS: African American GFR (CKD) >90 (>60 ml/min/1.73 sqM); Anion Gap 12 mmol/L; Blood Urea Nitrogen 16 mg/dL (9-20); Calcium 8.9 mg/dL (8.4-10.2); Carbon Dioxide 26 mmol/L (22-30); Chloride 100 mmol/L (98-107); Glucose 137 mg/dL (74-99); Non-African American GFR(CKD) 86 (>60 ml/min/1.73 sqM); Potassium 4.2 mmol/L (3.5-5.1); Sodium 138 mmol/L (137-145)
--- NOTE | 2022-01-29 11:46 | P.PN ---
Subjective The patient is a 76-year-old male with a known history of hypertension and hyperlipidemia, coronary artery disease status post PCI who had recurrent atrial fibrillation and underwent ablation by Dr. Acuña 01/25/2022 since the procedure he has been complaining of PND, orthopnea and significant dyspnea on exertion. He denies any chest discomfort, dizziness or palpitations. He has chronic peripheral edema. He presented to the emergency room and subsequently admitted. His ejection fraction in July was 50-55% with ascv-ie-nxxyyred mitral regu rgitation and mild tricuspid regurgitation. His activity level has been stable until this procedure. In the emergency room he was found to have mild troponin elevation. His NT proBNP was within normal range. He was given IV Lasix yesterday. 01/29 Patient seen and examined at bedside, feels well. Breathing is better. Denies any symptoms of orthopnea or PND. Echo pending. Vital signs are stable. Sodium 138, potassium 4.2, BUN 16, syncope and 0.8 GENERAL: Well-appearing, well-nourished and in no acute distress. NECK: Supple without JVD LUNGS: Breath sounds clear to auscultation bilaterally. Respiration equal and unlabored. No wheezes, rales or rhonchi. HEART: Regular rate and rhythm without murmurs, rubs or gallops. S1 and S2 heard. EXTREMITIES: Normal range of motion, mild non-pitting bilateral lower extremity edema. No clubbing or cyanosis. Peripheral pulses intact. ASSESSMENT: 1. Symptoms of dyspnea, post ablation could be transient LV dysfunction 2. Persistent Atrial fibrillation, remains in sinus mechanism post ablation 3. Elevated troponin, secondary to the ablation 4. History of CAD, no evidence to suggest acute coronary syndrome 5. History of hypertension 6. History of hyperlipidemia PLAN Transition to PO Lasix Continue beta raffaele and DOMINGO inhibitor Recommend sleep study and follow up with pulmonology for CPAP as an outpatient Preliminary echo reviewed with small pericardial effusion however no evidence of tamponade. Appears stable for discharge home with outpatient follow-up. Nurse Practitioner note has been reviewed, I agree with a documented findings and plan of care. Patient was seen and examined. Objective - Vital Signs Vital signs: Vital Signs Temp 97.7 F 01/29/22 04:00 Pulse 57 L 01/29/22 08:00 Resp 18 01/29/22 08:00 BP 139/73 01/29/22 08:00 Pulse Ox 98 01/29/22 08:00 FiO2 Intake & Output 01/28/22 01/29/22 01/29/22 18:59 06:59 18:59 Intake Total 118 360 Output Total 0 Balance 118 360 Weight 119.748 kg Intake: Oral 118 360 Output: Urine 0 Urine/Stool Mix 0 Emesis 0 Other: Voiding Method Toilet Toilet # Voids 2 3 0 # Bowel Movements 0 - Labs CBC & Chem 7: 01/28/22 05:54 01/29/22 08:43 Labs: Abnormal Lab Results - Last 24 Hours (Table) 01/28/22 01/28/22 Range/Units 09:41 12:24 Troponin I 0.880 H* 0.821 H* (0.000-0.034) ng/mL
[2022-01-29] MEDS ORDERED: FAMOTIDINE 20 MG TAB PO SCH (21:00)
--- NOTE | 2022-01-30 09:48 | CA ---
Transthoracic Echo Report Name: Alo Salazar Age: 76 Gender: M : 1945 Exam Date: 01/29/2022 09:52 Exam Location: [facility] Ht (in): 70 Wt (lb): 264 Ordering Physician: Keegan Bass Attending/Referring Phys: [id number], [place] Safety Engineer Concepcion Luna RDCS Procedure CPT: Indications: Orthopnea status post cardiac ablation Cardiac Hx: Technical Quality: Fair Contrast 1: Total Dose (mL): Contrast 2: Total Dose (mL): MEASUREMENTS (Male / Female) Normal Values 2D ECHO LV Diastolic Diameter PLAX 4.2 cm 4.2 - 5.9 / 3.9 - 5.3 cm LV Systolic Diameter PLAX 3.0 cm IVS Diastolic Thickness 1.2 cm 0.6 - 1.0 / 0.6 - 0.9 cm LVPW Diastolic Thickness 1.4 cm 0.6 - 1.0 / 0.6 - 0.9 cm LV Relative Wall Thickness 0.6 LA Volume 107.2 cm??? 18 - 58 / 22 - 52 cm??? M-MODE Aortic Root Diameter MM 3.3 cm LA Systolic Diameter MM 5.0 cm LA Ao Ratio MM 1.5 AV Cusp Separation MM 1.9 cm DOPPLER AV Peak Velocity 123.1 cm/s AV Peak Gradient 6.1 mmHg LVOT Peak Velocity 73.4 cm/s LVOT Peak Gradient 2.2 mmHg MV Area PHT 2.8 cm??? Mitral E Point Velocity 92.5 cm/s Mitral A Point Velocity 35.0 cm/s Mitral E to A Ratio 2.6 MV Deceleration Time 266.4 ms MV E' Velocity 7.6 cm/s Mitral E to MV E' Ratio 12.2 TR Peak Velocity 267.2 cm/s TR Peak Gradient 28.6 mmHg Right Ventricular Systolic Press 33.1 mmHg FINDINGS Left Ventricle Mildly increased left ventricular wall thickness. Normal left ventricular systolic function with no obvious regional wall motion abnormalities. Left ventricular ejection fraction is estimated at 50-55 %. Right Ventricle Normal right ventricular size. Right ventricular systolic pressure within normal limits. Right Atrium Moderate right atrial dilatation. Left Atrium Moderate left atrial dilatation. Mitral Valve Structurally normal mitral valve. No mitral stenosis. Mild to moderate mitral regurgitation. Aortic Valve No aortic valve stenosis or regurgitation. Tricuspid Valve Structurally normal tricuspid valve. Mild tricuspid regurgitation. Pulmonic Valve Structurally normal pulmonic valve. Trace pulmonic regurgitation. Pericardium Small pericardial effusion. Aorta Normal size aortic root and proximal ascending aorta. CONCLUSIONS Technically difficult study for interpretation Probably normal left ventricular dimension and systolic function [id number] mitral regurgitation Previewed by: Dr. Omkar Conner MD (Electronically Signed) Final Date: 30 January 2022 09:47
== END 2022-01-29 17:08 | disposition left against medical advice (07) ==
LOC: EC 05:03 → 3SCARD 09:04
PROVIDERS: ADMIT Internal Medicine; ATTEND Internal Medicine
DX: R06.01 Orthopnea (principal); R77.8 Other specified abnormalities of plasma proteins; I48.19 Other persistent atrial fibrillation; R60.0 Localized edema; I25.10 Atherosclerotic heart disease of native coronary artery without angina pectoris; K21.9 Gastro-esophageal reflux disease without esophagitis; E78.5 Hyperlipidemia, unspecified; I10 Essential (primary) hypertension; I25.2 Old myocardial infarction; G47.33 Obstructive sleep apnea (adult) (pediatric); M19.90 Unspecified osteoarthritis, unspecified site; E66.9 Obesity, unspecified; Z68.37 Body mass index [BMI] 37.0-37.9, adult; Z85.46 Personal history of malignant neoplasm of prostate; Z86.718 Personal history of other venous thrombosis and embolism; Z87.891 Personal history of nicotine dependence; Z96.651 Presence of right artificial knee joint; Z79.01 Long term (current) use of anticoagulants; Z79.02 Long term (current) use of antithrombotics/antiplatelets; Z79.899 Other long term (current) drug therapy; Z83.3 Family history of diabetes mellitus; Z82.49 Family history of ischemic heart disease and other diseases of the circulatory system; Z80.0 Family history of malignant neoplasm of digestive organs
CPT/HCPCS: 99285; 36415; 94760; 93005; 93306; 97162; 97165; 83880; 80053; 80048; 84484; 85025; 85610; 85730; 71046; G0378 ×2

== ENCOUNTER → 2022-02-09 | Outpatient (CLI) | payer MEDICARE ==
--- NOTE | 2022-02-09 10:48 | XR ---
EXAMINATION TYPE: XR chest 2V DATE OF EXAM: 02/09/2022 COMPARISON: 01/28/2022 TECHNIQUE: PA and lateral views submitted. HISTORY: Shortness of breath FINDINGS: Hemidiaphragms are stable relative to prior exam. If there is concern for diaphragmatic par esis correlate with sniff test. The lungs are clear and there is no pneumothorax, pleural effusion, or focal pneumonia. IMPRESSION: 1. No acute process. Hemidiaphragms appear fairly well positioned and stable from prior exam. Sniff t est recommended.
--- NOTE | 2022-02-09 11:07 | FL ---
CLINICAL INDICATION: Evaluate for diaphragmatic paralysis, shortness of breath. COMPARISON: Chest radiograph 02/09/2022, 01/28/2022. TECHNIQUE: With the patient standing, fluoroscopy of the right and left hemidiaphragm was observed du ring normal resting respiration as well as deep inspiration, deep expiration, and "sniffing." Fluoroscopic time: 24 seconds Fluoroscopic images: 70 FINDINGS: Hemidiaphragms are stable relative to prior examination. They appear fairly well positioned. The left diaphragm contracts during inspiration. Both hemidiaphragms move together. Normal excursion is demonstrated of the left hemidiaphragm. The right diaphragm contracts during inspiration. Both hemidiaphragms move together. Normal excursion is demonstrated of the right hemidiaphragm. IMPRESSION: Normal sniff test.
== END | disposition home or self-care (01) ==
LOC: RADFLMAIN 10:30
PROVIDERS: ATTEND Internal Medicine Interventional Cardiology
DX: I48.19 Other persistent atrial fibrillation (principal); Z98.61 Coronary angioplasty status
CPT/HCPCS: 71046; 76000

== ENCOUNTER → 2022-05-11 | Outpatient (CLI) | payer MEDICARE ==
--- NOTE | 2022-05-14 09:36 | PE ---
EXAMINATION TYPE: PET CT fusion skull to thigh DATE OF EXAM: 05/11/2022 CLINICAL INDICATION:Male, 76 years old with history of R97.21 Elevated PSA; TECHNIQUE: Following the intravenous administration of 5.01 mCi of Ga-68 Illuccix (PSMA), whole bod y images are performed from the skull base to the midthigh. Images are reviewed on the computer in t he coronal, axial, and sagittal planes. Reconstructed rotating images are created on independent wor kstation and reviewed on the computer. A non-contrast CT is performed in conjunction with the PET s can. COMPARISON: CT 10/23/2021 CT abdomen and 06/03/2020 CT chest, PET/CT None, nuclear medicine bone scan FINDINGS: Mediastinal SUV mean is 0.5. Hepatic parenchyma SUV mean is 1.6. SKULL BASE AND NECK: Indeterminate activity within the anterior larynx at the level of vocal cords m ax SUV 5.5. This correlates on CT with some soft tissue surrounding by fat measuring 8 x 7 mm. CHEST, MEDIASTINUM, AND HILAR REGION: No suspicious radiotracer activity. ABDOMEN AND PELVIS: Intense uptake within the prostate gland with a more focal area in the right cent ral gland max SUV 26.4 . OSSEOUS STRUCTURES: No suspicious radiotracer activity. OTHER CT: Atherosclerosis of the arterial vasculature. Mild gynecomastia changes. Moderate to severe coronary artery atherosclerosis. Right renal cysts. Suma mesentery in the midabdomen. Scattered clon ic diverticula. Fat-containing umbilical hernia. IMPRESSION: 1. Diffuse uptake within the prostate gland with a more focal central mid gland/apex area concerning for prostatitis and possibly underlying primary prostatic adenocarcinoma. Further evaluation with pr ostate MRI. No evidence for metastatic disease at this time. 2. Indeterminate radiotracer uptake at the level of the vocal cords and larynx.
== END | disposition home or self-care (01) ==
LOC: RADPETMAIN 10:23
PROVIDERS: ATTEND Urology
DX: R97.21 Rising PSA following treatment for malignant neoplasm of prostate (principal)
CPT/HCPCS: 78815; A9596

== ENCOUNTER → 2024-08-25 | Outpatient (CLI) | payer MEDICARE ==
[2024-08-25 18:27] LABS: HCT 40.8 % (39.6-50.0); HGB 13.3 g/dL (13.0-17.0); MCH 30.4 pg (27.0-32.0); MCHC 32.6 g/dL (32.0-37.0); MCV 93.4 FL (80.0-97.0); Mean Platelet Volume 11.1 FL (9.5-12.2); NRBC Per 100 WBC 0 X 10*3/uL (0.00-0.01); Platelet Count 216 X 10*3/uL (140-440); RBC 4.37 X 10*6/uL (4.40-5.60); RDW 14.1 % (11.5-14.5); WBC 9.23 X 10*3/uL (4.50-10.00)
[2024-08-25 18:38] LABS: Blood Urea Nitrogen 20.7 mg/dL (9.0-27.0); Calcium 9.2 mg/dL (8.7-10.3); Carbon Dioxide 25.4 mmol/L (21.6-31.8); Chloride 103 mmol/L (96-109); Glucose 98 mg/dL (70-110); Potassium 4.3 mmol/L (3.5-5.5); Sodium 139 mmol/L (135-145)
== END | disposition home or self-care (01) ==
LOC: LABWHC1 15:00
PROVIDERS: ATTEND Internal Medicine
DX: I25.10 Atherosclerotic heart disease of native coronary artery without angina pectoris (principal)
CPT/HCPCS: 36415; 80048; 85027

== ENCOUNTER 2024-08-28 08:59 | Day surgery (SDC) | payer MEDICARE ==
[2024-08-26 15:00] VITALS: BMI 37.5
[~2024-08-28 08:59] MED LIST changes: +ALPRAZolam 0.25 MG TAB PO PRN; +ALPRAZolam 0.5 MG TAB PO PRN; +HEPARIN SODIUM,PORCINE (1 ML) 2,500 UNIT in SODIUM CHLORIDE 0.9% 250 ML IRRIGATION PRN; +HEPARIN SODIUM,PORCINE 10,000 UNIT in SODIUM CHLORIDE 0.9% 1,000 ML IRRIGATION PRN; -LACTATED RINGERS 1,000 ML IV SCH; +NITROGLYCERIN SL TABS 0.4 MG TAB SUBLINGUAL PRN; -SODIUM CHLORIDE 0.9% 1,000 ML IV SCH
[2024-08-28] MEDS: IV FLUID CONTINUATION 1,000 ML IV ONE (09:12)
[2024-08-28] MEDS: SODIUM CHLORIDE 0.9% 1,000 ML in EMPTY BAG 1 BAG IV SCH (09:34)
[2024-08-28] MEDS: ASPIRIN 325 MG TAB PO STA (09:34)
[2024-08-28] MEDS: MIDAZOLAM 2 MG/2 ML VIAL IVP ONE (10:25)
[2024-08-28] MEDS: LIDOCAINE 1% INJ 10MG/ML (20 ML MDV) SQ ONE (10:28)
[2024-08-28] MEDS: HEPARIN SODIUM IV ONE (10:30)
[2024-08-28] MEDS: SODIUM CHLORIDE IV ONE (10:30)
[2024-08-28] MEDS: VERAPAMIL SYRINGE (5 MG/10 ML) INTRAARTER ONE (10:32)
[2024-08-28] MEDS: HEPARIN SODIUM 1,000 UN/ML (10ML VL) IV ONE (10:35)
[2024-08-28] MEDS: IOPAMIDOL-370 100ML BTL INJ ONE ×2 (11:04→11:44)
[2024-08-28] MEDS: NITROGLYCERIN 1000MCG/10ML SYRINGE INTRAARTER ONE ×2 (11:23→11:27)
[2024-08-28] MEDS: amLODIPine 5 MG TAB PO ONE (11:28)
[2024-08-28] MEDS: CLOPIDOGREL 75 MG TAB PO ONE (11:44)
[2024-08-28] MEDS: HEPARIN SODIUM,PORCINE (1 ML) 2,500 UNIT in SODIUM CHLORIDE 0.9% 250 ML IRRIGATION ONE (11:45)
[2024-08-28] MEDS: METOPROLOL TARTRATE 25 MG TAB PO SCH (13:58)
[2024-08-28] MEDS: ISOSORBIDE MONONITRATE ER 30 MG TAB.ER.24H PO SCH (13:58)
[2024-08-28] MEDS: ATORVASTATIN 80 MG TAB PO SCH (13:58)
[2024-08-28] MEDS: SODIUM CHLORIDE 0.9% 1,000 ML IV SCH (13:58)
[2024-08-28] MEDS: CLOPIDOGREL 75 MG TAB PO SCH (14:19)
[2024-08-28] MEDS: amLODIPine 5 MG TAB PO SCH (14:59)
[2024-08-28] MEDS: NITROGLYCERIN SL TABS 0.4 MG TAB SUBLINGUAL ONE (15:00)
[2024-08-28] MEDS: PANTOPRAZOLE 40 MG TABLET PO STA (15:00)
[2024-08-29 02:30] VITALS: RESP 18
[2024-08-29 04:43] LABS: Basophils # (A) 0.05 10*3/uL (0.00-0.10); Basophils % (A) 0.6 %; Eosinophils # (A) 0.24 10*3/uL (0.04-0.35); Eosinophils % (A) 2.6 %; HCT 38.1 % (39.6-50.0); Lymphocytes # (A) 2.77 10*3/uL (0.90-5.00); Lymphocytes % (A) 30.5 %; MCH 31.6 pg (27.0-32.0); MCHC 34.1 g/dL (32.0-37.0); MCV 92.7 fL (80.0-97.0); Mean Platelet Volume 10.8 fL (9.5-12.2); Monocytes # (A) 1.03 10*3/uL (0.20-1.00); Monocytes % (A) 11.3 %; Neutrophils # (A) 4.98 10*3/uL (1.80-7.70); Neutrophils % (A) 54.8 %; Platelet Count 187 10*3/uL (140-440); RBC 4.11 10*6/uL (4.40-5.60); RDW 14.2 % (11.5-14.5); WBC 9.09 10*3/uL (4.50-10.00)
[2024-08-29 05:02] LABS: African American GFR (CKD) >90 (>60 ml/min/1.73 sqM); Anion Gap 7 mmol/L; Blood Urea Nitrogen 14 mg/dL (9-20); Calcium 8.9 mg/dL (8.4-10.2); Carbon Dioxide 28 mmol/L (22-30); Chloride 102 mmol/L (98-107); Glucose 99 mg/dL (74-99); Non-African American GFR(CKD) 83 (>60 ml/min/1.73 sqM); Potassium 4.2 mmol/L (3.5-5.1); Sodium 137 mmol/L (137-145)
[2024-08-29 05:10] LABS: NT-Pro-B-Type Natriuretic Pept 668 pg/mL
[2024-08-29 07:35] VITALS: BP 149/66; PULSE 42; TEMP 97.3
[2024-08-29] MEDS: CLOPIDOGREL 75 MG TAB PO SCH (09:00)
[2024-08-29] MEDS: ASPIRIN 81 MG PO SCH (09:00)
[2024-08-29] MEDS: APIXABAN 5 MG TAB PO SCH (09:00)
--- NOTE | 2024-08-29 09:48 | P.DS ---
Providers Date of admission: DISCHARGE DIAGNOSES: 1. #1 CAD with unstable angina, #2 benign hypertension, #3 hypercholesterolemia, #4 paroxysmal atrial fibrillation with previous PVI PROCEDURES: 1. Left heart catheterization coronary angiography, PTCA and stenting with shockwave lithotripsy of mid LAD and dilatation of a previous stent in the proximal LAD excellent angiographic result. Right radial approach HISTORY OF PRESENTATION: This gentleman in 2018 underwent stenting of proximal LAD which was a restenotic vessel and has 2 stents in it. Earlier to that it was performed nearly 15 years ago. In 2020 I performed stenting of his mid RCA with orbital atherectomy. Because of symptoms of angina I performed coronary angiogram yesterday which revealed that the RCA had a 50% lesion but LAD in the midportion had 80 to 90% eccentric lesion. He underwent shockwave lithotripsy as well as stenting of mid LAD and the diagonal blood flow was preserved. The proximal LAD stent was also dilated with a 4.0 noncompliant balloon. Excellent angiographic result was achieved procedure performed from right radial approach. HOSPITAL COURSE: Postprocedure course was uneventful he had some bleeding from the right radial site and therefore the TR band was taken out rather slowly. There is a small area of ecchymosis but the radial pulse is excellent. Patient did not have any chest pain shortness of breath or palpitation. EKG this morning is unremarkable blood work is unremarkable he is doing well right radial pulse is excellent he will be discharged today discharge instructions regarding activity diet medications were given. He will resume Eliquis tomorrow he will take aspirin Plavix Eliquis combination for 3 weeks and I will discontinue aspirin at that time. He will see me in the office on the at 9:15 AM. Discharge instructions regarding activity medications were given. DISCHARGE MEDICATIONS: Aspirin, Plavix, Eliquis, statin, beta-raffaele. I will see him in the office in 1 week, discharge instructions given. FOLLOW-UP: 1 week office visit he will see me on September 02 at 9:15 AM. Advised not to do much activity with the right wrist. To be compliant with medications. Expected date of discharge: 08/29/24 Attending physician: Ronda Hager Primary care physician: Mark James MD Plan - Discharge Summary Discharge Rx Participant: No New Discharge Prescriptions: No Action Multivitamins, Thera [Multivitamin (formulary)] 1 tab PO DAILY Nitroglycerin Sl Tabs [Nitrostat] 0.4 mg SUBLINGUAL Q5M PRN #25 tab PRN Reason: Chest Pain Clopidogrel Bisulfate [Plavix] 75 mg PO QAM Atorvastatin [Lipitor] 80 mg PO HS Loratadine-Pseudoeph 10-240 mg [Claritin-D 24 Hour] 1 tab PO DAILY PRN PRN Reason: Allergic Reaction Omeprazole [PriLOSEC] 40 mg PO DAILY PRN PRN Reason: Acid Reflux Furosemide [Lasix] 40 mg PO QAM Magnesium Gluconate [Magonate] 500 mg PO HS Calcium Carbonate/Vitamin D3 [Calcium 600 mg-D3 20 mcg (800 unit)] 1 tab PO QAM Apixaban [Eliquis] 5 mg PO BID Metoprolol Tartrate [Lopressor] 25 mg PO BID Discharge Medication List Multivitamins, Thera [Multivitamin (formulary)] 1 tab PO DAILY 02/13/19 [History] Nitroglycerin Sl Tabs [Nitrostat] 0.4 mg SUBLINGUAL Q5M PRN #25 tab 02/17/19 [Rx] Clopidogrel Bisulfate [Plavix] 75 mg PO QAM 01/08/20 [History] Apixaban [Eliquis] 5 mg PO BID 06/20/21 [History] Calcium Carbonate/Vitamin D3 [Calcium 600 mg-D3 20 mcg (800 unit)] 1 tab PO QAM 06/20/21 [History] Magnesium Gluconate [Magonate] 500 mg PO HS 06/20/21 [History] Atorvastatin [Lipitor] 80 mg PO HS 07/31/21 [History] Loratadine-Pseudoeph 10-240 mg [Claritin-D 24 Hour] 1 tab PO DAILY PRN 01/23/22 [History] Omeprazole [PriLOSEC] 40 mg PO DAILY PRN 01/23/22 [History] Metoprolol Tartrate [Lopressor] 25 mg PO BID 01/28/22 [History] Furosemide [Lasix] 40 mg PO QAM 08/26/24 [History] Follow up Appointment(s)/Referral(s): Ronda Hager MD [STAFF PHYSICIAN] - 09/02/24 9:15 am
--- NOTE | 2024-08-31 05:25 | CC ---
CARDIAC CATHETERIZATION REPORT PROCEDURES PERFORMED: 1. Left heart catheterization and coronary angiography. 2. Shockwave lithotripsy of mid left anterior descending. 3. Percutaneous transluminal coronary angioplasty and stenting of mid left anterior descending and dilatation of the previous stent in the proximal portion of the left anterior descending. 4. Intravascular ultrasound of left anterior descending. PERFORMED BY: Dr. Jalen Hager. ANESTHESIA: Moderate conscious sedation time was 68 minutes. The patient was administered Versed and Dilaudid. Oxygen saturation, hemodynamics, and EKG were monitored closely. CLINICAL INFORMATION: Mr. Alo Salazar is a 78-year-old gentleman with a known history of CAD, multivessel PCI. In 2020, I performed orbital atherectomy and stenting of mid RCA, which was a vessel where there was a prior infarction with recanalization. Excellent angiographic result was achieved. Prior to that in 2018, I performed PTCA of a mid LAD with a 3.25 caliber stent. This was a restenotic lesion at that time and a second stent was deployed and the original stenting was performed in 2002 with a bare metal stent. So, the second and the most recent LAD stent was placed in 2018 and at that time, there was a restenoses and there was a new stenosis beyond the old stent. He comes in with symptoms of unstable angina and therefore, I recommended a coronary angiography. He also has history of paroxysmal atrial fibrillation for which he had ablation in the past. His Eliquis was held for about 36 hours and he was brought in for the procedure. PROCEDURE NOTE: Under strict aseptic precautions and local anesthesia, using ultrasound guidance, a 6- Maltese introducer was placed in the right radial artery. Using a JR4 and JL3.5 catheters, I performed coronary angiography and checked the pressures in the left ventricle, but did not perform the LV-gram. Following this, I performed intervention of the LAD along with shock wave lithotripsy and intravascular ultrasound and at the end of the procedure, the sheath was taken out and a TR band applied as per protocol with saturation the fingers of the right hand of 95%. The patient tolerated the procedure well without complications. ANESTHESIA: Moderate conscious sedation time was 68 minutes. CARDIAC CATHETERIZATION FINDINGS: Right coronary artery: This vessel is widely patent in the proximal portion. Midportion has about 55% stenosis, but in the caudal views, the stenosis does not seem significant. There is good DEMETRA-3 flow and angiographic appearance is not that much dissimilar from 2020 when I performed an orbital atherectomy and stenting. Left main coronary artery: Short patent vessel without significant disease, bifurcates into LAD and circumflex. LAD has a stent in the proximal portion before the origin of the diagonal branch, that stent is patent with a decent flow, but there is some haziness within the stent. Left anterior descending coronary artery: This vessel was stented in the proximal portion. The area of stenting appears to be patent with decent flow, but there is some haziness. Beyond the stented segment, there is a diagonal branch that comes off and after the diagonal, there is an eccentric 80% to 90% stenosis after which the caliber improves, and vessel runs all the way to the apex. Mid LAD therefore now has a 90% stenosis. The proximal LAD that was stented has a decent flow with some haziness. Diagonal has minor irregularities, but no ostial lesion. Rest of LAD has minor irregularities. FINAL IMPRESSION: This patient has normal filling pressures. No gradient. His left main is normal. Circumflex has no significant disease other than 30% to 40% narrowing. RCA that was stented in 2020 is widely patent with good flow, but no more than 50% to 55% mid lesion. LAD that was stented in the proximal portion is patent with good flow. Midportion after the origin of the diagonal branch has an eccentric 90% stenosis, which appears to be the culprit lesion. RECOMMENDATIONS: I recommended PCI of LAD and proceeded to perform this in the same setting. PCI PROCEDURE DETAILS: I used a JL3.5 guide catheter to cannulate the left coronary artery. A run-through wire was used to cross the lesion and wire was kept distally. I performed a shockwave lithotripsy of the mid LAD that has a 90% stenosis, which was eccentric with a 2.5 caliber 12 mm long shockwave balloon. Two passes were given. I then dilated this area with a 3.0 caliber 12 mm NC Trek balloon. I performed intravascular ultrasound, which suggested that this was at least a 3.25 caliber vessel. I then deployed a 15 mm long 3.25 caliber Xience stent in the midportion. Excellent angiographic result was achieved. I then performed intravascular ultrasound, noted that the stent was well apposed. The proximal portion of the stent was also well apposed, but the reference diameter was close to 3.5 in the proximal portion. After some deliberation, I decided to deploy another stent between the previously placed proximal LAD stent and current stent that I deployed in mid LAD. A 3.5 caliber 8 mm Xience stent was deployed at 14 atmospheres. I then used a 3.5 caliber NC Trek balloon and dilated the stent that I placed today in the mid LAD as well as at the origin of the diagonal branch. Diagonal branch was effectively jailed with second stent. I performed intravascular ultrasound and noted that the flow in the diagonal and the lumen was adequate and excellent apposition of the 2 stents that I placed was noted with good expansion, reference diameter was close to 3.4 mm. The proximal LAD stent, which actually has 2 layers of stents in it somehow was not fully expanded and after some deliberation, I used a 12 mm long 4.0 NC Trek balloon and dilated this area. Following this, I performed an ultrasound, which revealed that the proximal stent was also fully expanded, well- opposed. Excellent angiographic result without complication was achieved. The patient received 300 mg of Plavix. He was already on Plavix and Eliquis combination and he will be on aspirin, Plavix, Eliquis for 3 weeks followed by Eliquis and Plavix for another year at least. Results were discussed with the patient and . He was sent to the room in a stable condition. Excellent angiographic result of mid LAD as well as proximal LAD was achieved. There were no complications. MMODL / IJN: [id number] /
== END 2024-08-29 10:25 | disposition home or self-care (01) ==
LOC: CATHCVL 08:59 → 6NMEDSUR 11:39 → CATHCVL 08-29 10:25
PROVIDERS: ATTEND Internal Medicine Interventional Cardiology
DX: I25.110 Atherosclerotic heart disease of native coronary artery with unstable angina pectoris (principal); I48.0 Paroxysmal atrial fibrillation; I73.9 Peripheral vascular disease, unspecified; I10 Essential (primary) hypertension; E78.00 Pure hypercholesterolemia, unspecified; Z95.5 Presence of coronary angioplasty implant and graft; Z72.0 Tobacco use; Z86.711 Personal history of pulmonary embolism; Z79.01 Long term (current) use of anticoagulants; Z79.02 Long term (current) use of antithrombotics/antiplatelets; Z79.899 Other long term (current) drug therapy
CPT/HCPCS: 99152; 99153; 92978; 93458; 92972; 83880; 80048; 85025; C9600; C1769 ×2; C1887; C1894; C1753; C1725 ×3; C1761; J2250; J1644 ×2; J2003; Q9967; J2305

== ENCOUNTER → 2024-09-10 | Outpatient (CLI) | payer MEDICARE ==
[2024-09-10 18:36] LABS: Blood Urea Nitrogen 15.9 mg/dL (9.0-27.0); Carbon Dioxide 28.1 mmol/L (21.6-31.8); Chloride 103 mmol/L (96-109); Potassium 4.9 mmol/L (3.5-5.5); Sodium 140 mmol/L (135-145)
[2024-09-10 18:42] LABS: HCT 41.4 % (39.6-50.0); HGB 13.3 g/dL (13.0-17.0); MCH 30.2 pg (27.0-32.0); MCHC 32.1 g/dL (32.0-37.0); MCV 94.1 FL (80.0-97.0); Mean Platelet Volume 10.9 FL (9.5-12.2); NRBC Per 100 WBC 0 X 10*3/uL (0.00-0.01); Platelet Count 225 X 10*3/uL (140-440); RDW 13.8 % (11.5-14.5); WBC 9.42 X 10*3/uL (4.50-10.00)
== END | disposition home or self-care (01) ==
LOC: LABWHC1 14:08
PROVIDERS: ATTEND Internal Medicine Interventional Cardiology
DX: Z01.812 Encounter for preprocedural laboratory examination (principal); I25.10 Atherosclerotic heart disease of native coronary artery without angina pectoris
CPT/HCPCS: 80051; 82565; 84520; 85027

== ENCOUNTER 2024-09-14 09:08 | Day surgery (SDC) | payer MEDICARE ==
[2024-09-11 08:55] VITALS: BMI 37.5
[~2024-09-14 09:08] MED LIST changes: +ASPIRIN 325 MG TAB PO ONE; -HEPARIN SODIUM,PORCINE (1 ML) 2,500 UNIT in SODIUM CHLORIDE 0.9% 250 ML IRRIGATION PRN; -HEPARIN SODIUM,PORCINE 10,000 UNIT in SODIUM CHLORIDE 0.9% 1,000 ML IRRIGATION PRN
[2024-09-14] MEDS: SODIUM CHLORIDE 0.9% 1,000 ML in EMPTY BAG 1 BAG IV SCH (09:41)
[2024-09-14] MEDS: IV FLUID CONTINUATION 1,000 ML IV ONE (09:47)
[2024-09-14 10:02] VITALS: RESP 16; TEMP 98.2
[2024-09-14] MEDS: MIDAZOLAM 2 MG/2 ML VIAL IVP ONE (10:41)
[2024-09-14] MEDS: LIDOCAINE 1% INJ 10MG/ML (20 ML MDV) SQ ONE (10:41)
[2024-09-14] MEDS: VERAPAMIL SYRINGE (5 MG/10 ML) INTRAARTER ONE (10:42)
[2024-09-14] MEDS: HEPARIN SODIUM 1,000 UN/ML (10ML VL) IVP ONE (10:52)
[2024-09-14] MEDS: IOPAMIDOL-370 100ML BTL INJ ONE (11:04)
[2024-09-14] MEDS: NITROGLYCERIN 1000MCG/10ML SYRINGE INTRACORON ONE (11:04)
[2024-09-14 15:55] VITALS: BP 165/70; PULSE 65
--- NOTE | 2024-09-14 22:21 | CC ---
CARDIAC CATHETERIZATION REPORT PROCEDURES: 1. Coronary angiography. 2. IFR assessment of right coronary artery. ANESTHESIA: Moderate conscious sedation time was 25 minutes. The patient was administered Versed. Oxygen saturation, hemodynamics, and EKG were monitored closely. CLINICAL INFORMATION: Mr. Alo Salazar is a 78-year-old gentleman with a known history of multivessel PCI. He has hypertension, hyperlipidemia, atrial fibrillation for which he had a previous ablation performed. Because of unstable angina, I performed coronary angiogram on August 28 of this year and performed shock wave lithotripsy of mid LAD and stenting and also I stented with the proximal LAD previously placed stent, which had 2 layers. At that time, RCA was 55%. I did not recommend intervention. However, he continues to have chest discomfort and therefore, I brought him for the procedure. Proximal circumflex has about a 40% lesion. He was brought into perform and I assessed the patency of LAD and then to check an IFR of the RCA. PROCEDURE NOTE: Under local anesthesia and strict aseptic precautions, a 6-Uzbek introducer was placed in the right radial artery. Using a JL3.5 catheter, I performed selective coronary angiography of the left system. Two injections were performed. I then performed a coronary angiography of the right coronary artery with the right guide catheter. 7500 units of heparin was given. ACT was about 232. I performed IFR assessment of the mid RCA lesion. I used the OmniWire after appropriate zeroing and calibrating it in the aorta. The wire was advanced and positioned in the distal RCA. IFR assessment was 0.91 and 0.94. This suggests that this is not a hemodynamically significant lesion. Circumflex disease appears to be about 40% in the proximal portion, not very significant with a brisk flow. I explained to the patient that RCA lesion is not significant and LAD has a widely patent vessel with brisk flow. The sheath was then taken out and TR band applied with saturation of the fingers of the right hand of 100%. The patient tolerated the procedure well. There were no complications. CARDIAC CATHETERIZATION FINDINGS: CORONARY ANGIOGRAM FINDINGS: Right Coronary Artery: This is a dominant vessel, which had a previous orbital atherectomy and stenting. There was a mid lesion of about 50%. Distally, it bifurcates into PDA and PLV with supplies a fair amount of myocardium. No significant disease. Left Main Coronary Artery: Short patent vessel. No significant disease. Bifurcates into LAD and circumflex. Left main itself is free of significant disease. Left Anterior Descending Coronary Artery: This is a good caliber vessel. The recently stented area in the mid LAD is widely patent with remarkably good flow. The diagonal that was jailed also has a good flow. Proximal LAD has about a 40% narrowing. Mid LAD has a 30% narrowing. Diagonal flow is excellent. There are minor irregularities in the distal LAD. Left Posterior Circumflex Coronary Artery: Limited angiogram revealed no significant disease. Proximal LAD had about a 40% lesion, but the flow is brisk. FINAL IMPRESSION: This patient has a right-dominant system. No significant disease in the recently stented LAD in the proximal and midportion. RCA had a 50% lesion. Circumflex in the 2 angiograms I performed, did not reveal significant disease. Probably a 40% proximal lesion. IFR assessment: Performed with the OmniWire after appropriate zeroing and calibration. IFR was 0.91 and 0.94, suggesting the RCA lesion was not hemodynamically significant. RECOMMENDATIONS: Findings were reviewed with the patient and . 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 No intervention is necessary from a coronary disease standpoint. I will see him in the office in about 4 days. MMODL / IJN: [id number] /
== END 2024-09-14 15:41 | disposition home or self-care (01) ==
LOC: CATHCVL 09:08
PROVIDERS: ATTEND Internal Medicine Interventional Cardiology
DX: I20.0 Unstable angina (principal); I48.91 Unspecified atrial fibrillation; I10 Essential (primary) hypertension; E78.5 Hyperlipidemia, unspecified; Z95.5 Presence of coronary angioplasty implant and graft
CPT/HCPCS: 93454; 93799; C1887; C1769 ×2; C1894; J2250; J2003; J1644; Q9967; J2305

== ENCOUNTER 2024-10-12 08:34 | Day surgery (SDC) | payer MEDICARE ==
[2024-10-09 13:27] VITALS: BMI 37.5
[~2024-10-12 08:34] MED LIST changes: -ASPIRIN 325 MG TAB PO ONE; +ASPIRIN 325 MG TAB PO STA; +SODIUM CHLORIDE 0.9% 1,000 ML in EMPTY BAG 1 BAG IV SCH
[2024-10-12] MEDS: IV FLUID CONTINUATION 1,000 ML IV ONE (08:49)
[2024-10-12 09:12] LABS: Glucose,Whole Blood 105 mg/dL (70-110)
[2024-10-12 09:13] VITALS: RESP 16; TEMP 98.4
[2024-10-12 09:27] LABS: Basophils # (A) 0.06 10*3/uL (0.00-0.10); Basophils % (A) 0.8 %; Eosinophils # (A) 0.26 10*3/uL (0.04-0.35); Eosinophils % (A) 3.7 %; HCT 39.6 % (39.6-50.0); HGB 13.5 g/dL (13.0-17.0); Lymphocytes # (A) 2.31 10*3/uL (0.90-5.00); Lymphocytes % (A) 32.6 %; MCH 31.5 pg (27.0-32.0); MCHC 34.1 g/dL (32.0-37.0); MCV 92.5 fL (80.0-97.0); Mean Platelet Volume 10.5 fL (9.5-12.2); Monocytes # (A) 0.78 10*3/uL (0.20-1.00); Neutrophils # (A) 3.67 10*3/uL (1.80-7.70); Neutrophils % (A) 51.8 %; Platelet Count 211 10*3/uL (140-440); RBC 4.28 10*6/uL (4.40-5.60); RDW 13.8 % (11.5-14.5); WBC 7.09 10*3/uL (4.50-10.00)
[2024-10-12 09:40] LABS: African American GFR (CKD) >90 (>60 ml/min/1.73 sqM); Anion Gap 10 mmol/L; Blood Urea Nitrogen 18 mg/dL (9-20); Carbon Dioxide 25 mmol/L (22-30); Chloride 104 mmol/L (98-107); Glucose 114 mg/dL (74-99); Non-African American GFR(CKD) 83 (>60 ml/min/1.73 sqM); Potassium 4.4 mmol/L (3.5-5.1); Sodium 139 mmol/L (137-145)
[2024-10-12] MEDS: HEPARIN SODIUM,PORCINE 10,000 UNIT in SODIUM CHLORIDE 0.9% 1,000 ML IRRIGATION PRN (10:27)
[2024-10-12] MEDS: HEPARIN SODIUM,PORCINE (1 ML) 2,500 UNIT in SODIUM CHLORIDE 0.9% 250 ML IRRIGATION PRN (10:28)
[2024-10-12] MEDS: MIDAZOLAM 2 MG/2 ML VIAL IVP ONE (10:40)
[2024-10-12] MEDS: LIDOCAINE 1% INJ 10MG/ML (20 ML MDV) SQ ONE (10:43)
[2024-10-12] MEDS: VERAPAMIL SYRINGE (5 MG/10 ML) INTRAARTER ONE (10:45)
[2024-10-12] MEDS: HEPARIN SODIUM 1,000 UN/ML (10ML VL) IV ONE (10:53)
[2024-10-12] MEDS: NITROGLYCERIN 1000MCG/10ML SYRINGE INTRACORON ONE (11:15)
[2024-10-12] MEDS: HYDROmorphone 0.5 MG/0.5 ML SYRINGE IVP ONE (11:22)
[2024-10-12] MEDS: IOPAMIDOL-370 100ML BTL INJ ONE ×2 (11:36→11:51)
[2024-10-12] MEDS: CLOPIDOGREL 75 MG TAB PO ONE (11:51)
[2024-10-12] MEDS ORDERED: SODIUM CHLORIDE 0.9% 1,000 ML IV SCH (12:04)
--- NOTE | 2024-10-12 12:24 | P.CARDCATH ---
Date of Procedure: 10/12/24 Operative Findings: History: Patient is well-known to me. He has a history of multivessel PCI. History of CAD who underwent PCI of LAD and RCA in the past with a recent cardiac catheter revealed that the RCA and LAD had no significant disease angiographically and I performed IFR of RCA as well circumflex had moderate disease. He continues to have anginal symptoms therefore he was brought in for the procedure. Historically I performed PTCA and stenting of proximal LAD and mid RCA in 2002 and subsequently I had another stent placed in the proximal LAD for in-stent restenosis I performed a reintervention of the LAD in 2018 and a stent was placed inside the previous stent. Mid LAD was also dilated and RCA was intervened. The most recent intervention was on June 01, 2020 when the orbital atherectomy and stenting of mid RCA was performed. LAD it was patent at that time. Recent cardiac cath from August 28 was performed in mid LAD had a restenotic lesion and this was also dilated. I performed shockwave lithotripsy and stenting of mid LAD in 2024 and brought him back for a repeat study and it was patent at the time but the proximal LAD had a 30% restenosis which I did not intervene. RCA if IFR was unremarkable. Because of recurrent angina I will perform coronary angiography and consider IFR of circumflex he was brought in with this purpose. Procedure: Coronary angiography of left coronary artery, PTCA of the proximal LAD with a 5.0 caliber noncompliant balloon, IFR of circumflex coronary artery, intravascular ultrasound of the LAD adjunctive procedure before and after PTCA. Procedure Details: The risks, benefits, complications, treatment options, and expected outcomes were discussed with the patient. The patient and/or family concurred with the proposed plan, giving informed consent. Patient was brought to the cheesemaking laborer after IV hydration was begun and oral premedication was given. Patient was further sedated with midazolam. Patient was prepped and draped in the usual manner. Under strict aseptic precautions and local anesthesia a 6 Macedonian introducer was placed in the right radial artery. I used a JL 3.5 guide catheter and cannulated the left coronary artery. A run-through wire was used after I noted that there was a significant lesion in the proximal LAD at the site of previous stenting this was a in-stent restenosis and there are 2 layers of stents in this area the restenotic lesion was at least 80 to 90%. I advanced a run-through wire and tried to use a 4.0 balloon I was unsuccessful and then I it switched over to a 3.5 balloon and stented the entire in-stent location. Before I used a 3.5 balloon I performed intravascular ultrasound and noted that there was a in-stent restenosis of the proximal LAD with 2 layers of stents was was noted. I then used a 4.0 NC trek balloon and dilated the proximal LAD but I could not get full expansion. I then switched over to a 4.5 to 15 mm NC trek balloon and dilated to the area finally I decided to go with a 5.0 caliber 8 mm long and gave a focal inflation up to 14 dustin. There was significant improvement. I performed intravascular ultrasound noted that the stent was fully expanded but the residual stenosis was probably in the 15% range. The area was about 6.1 mm and the diameter was 3.2 mm I decided not to pursue any further and the angiographic result was good but there was a residual stenosis of 15%. I explained to the patient but that if he has restenosis he should consider aortocoronary bypass surgery to graft both the LAD and diagonal. I then performed a IFR of the circumflex using a [employer] IFR wire. After appropriate calibration IFR was performed and it was 0.99 and 1.0 suggesting that this was not a hemodynamically significant lesion in the circumflex. A good angiographic result was achieved of the LAD with residual stenosis of 15%. Circumflex IFR was unremarkable suggesting it is not a hemodynamically significant lesion. I have performed IFR of RCA and this was performed on September 14. Results were discussed patient as well as his . If he has restenosis of the LAD aortocoronary bypass surgery should be considered. Moderate conscious sedation time was 69 minutes. Patient's oxygen saturation hemodynamics and EKG were monitored closely. After the procedure was completed the sheaths and catheters were all removed. Hemostasis was achieved with Angio-Seal device/manual pressure and FemoStop. Findings: Closure Device: TR band Complications: None Estimated Blood Loss: Minimal Impression: Restenosis of proximal LAD lesion. PTCA performed with a 5.0 noncompliant balloon. iFR of circumflex which was unremarkable. Pre Procedure Diagnosis: Multivessel CAD Final Post Procedure Diagnosis: Multivessel CAD with restenosis of LAD proximally Recommendation: PCI of proximal LAD Complications: None; patient tolerated the procedure well. Disposition: Pacu - hemodynamically stable. Condition: Stable Discharge Disposition: Discharge patient home later on today and I will see him next Saturday in the morning in the office..
[2024-10-12 17:18] VITALS: BP 121/77; PULSE 62
== END 2024-10-12 17:10 | disposition home or self-care (01) ==
LOC: CATHCVL 08:34
PROVIDERS: ATTEND Internal Medicine Interventional Cardiology
DX: T82.855A Stenosis of coronary artery stent, initial encounter (principal); I25.10 Atherosclerotic heart disease of native coronary artery without angina pectoris; I48.19 Other persistent atrial fibrillation; Z91.199 Patient's noncompliance with other medical treatment and regimen due to unspecified reason; Z79.02 Long term (current) use of antithrombotics/antiplatelets; Z79.82 Long term (current) use of aspirin; Z79.01 Long term (current) use of anticoagulants; Y83.8 Other surgical procedures as the cause of abnormal reaction of the patient, or of later complication, without mention of misadventure at the time of the procedure
CPT/HCPCS: 92978; 93799; 92920; 80048; 85025; C1769 ×4; C1894; C1725 ×4; C1887; C1753; J2250; J1644 ×3; J2003; J1171; Q9967; J2305